=== PATIENT | female | born 1940 | race Caucasian/White ===

== ENCOUNTER 2018-11-11 10:34 | Outpatient (CLI) | payer MEDICARE, OTHER, SELFPAY ==
[2018-11-11 11:28] LABS: HCT 45.2 % (36.0-46.0); HGB 15.3 g/dL (12.0-15.5); Mean Corp. HGB Concentration 33.8 g/dL (32.0-36.0); Mean Corpuscular Volume 97.4 fL (80-95); Mean Platelet Volume 9.3 fL (8.0-11.0); Platelet Count 224 x1000/uL (130-400); RBC 4.64 m/cumm (4.00-5.20); RBC Distribution Width 12.5 % (11.7-14.6); White Blood Cell Count 6.26 k/cumm (4.4-10.8)
[2018-11-11 11:36] LABS: ALT 37 U/L (12-78); AST 20 U/L (15-37); Albumin 4.3 g/dL (3.4-5.0); Alkaline Phosphatase 74 U/L (46-116); Anion Gap 12.8 mmol/L (3-11); BUN 20 mg/dL (7-18); Bilirubin, Total 0.5 mg/dL (0.2-1.0); CO2 24.2 mmol/L (21.0-32.0); CREATININE 0.71 mg/dL (0.55-1.02); Calcium 9.2 mg/dL (8.5-10.1); Chloride 103 mmol/L (98-107); Glucose 97 mg/dL (70-100); Potassium 4.3 mmol/L (3.5-5.1); Sodium 140 mmol/L (136-145); Total Protein 7.2 g/dL (6.4-8.2)
== END 2018-11-11 10:54 ==
PROVIDERS: PCP Family Medicine; Visit Provider Family Medicine
DX: Z01.818 Encounter for other preprocedural examination (principal); R05 Cough
CPT/HCPCS: 36415; 80053; 85027

== ENCOUNTER 2019-03-19 00:53 | Outpatient (CLI) | payer MEDICARE, OTHER, SELFPAY ==
--- NOTE | 2019-03-19 07:43 | DI.MRI_ITS ---
SYMPTOMS/DIAGNOSIS: LOW BACK PAIN, M54.5 LUMBAR SPINE MRI: Sagittal T 2 and T 1 and STIR and axial T 1 and T 2 and axial T 2 MSMA and coronal T 1 pulse sequences were performed. Increased signal is noted in the first through fourth vertebral bodies and is associated with severe degenerative disc disease. At L 1 - 2 disc osteophyte prominence is demonstrated. There is prominent facet joint DJD and narrowing of the central neural canal. Also there is bilateral foraminal narrowing. At L 2 - 3 again noted is disc osteophyte complex prominence. Again noted is severe facet joint DJD with narrowing of the central spinal canal and bilateral foraminal narrowing. At L 3 - 4 disc osteophyte complex prominence is identified. There is severe facet joint DJD and evidence of bilateral foraminal stenosis most severe on the right side. At L 4 - 5 there is disc osteophyte prominence and a small subligamentous disc protrusion is demonstrated. There is severe facet joint DJD with resultant bilateral foraminal stenosis most advanced on the right side. At L 5 - S 1 and small subligamentous disc protrusion is identified. There is severe facet joint DJD with narrowing of the spinal canal and bilateral foraminal stenosis most advanced on the left side. There is no intrinsic abnormality involving the lower dorsal cord, conus or filum terminale. There is no evidence of a fracture. Note is made of disc narrowing at L 1 - 2, L 2 - 3 and L 3 - 4. There diminished disc signal and degenerative bony changes as noted above. There is multi-level spinal stenosis. Please see the above discussion.
== END 2019-03-19 01:13 ==
PROVIDERS: PCP Family Medicine; Visit Provider Family Medicine
DX: M54.5 Low back pain (principal); M51.36 Other intervertebral disc degeneration, lumbar region; M47.816 Spondylosis without myelopathy or radiculopathy, lumbar region; M48.061 Spinal stenosis, lumbar region without neurogenic claudication
CPT/HCPCS: 72148

== ENCOUNTER 2019-06-17 11:30 | Outpatient (CLI) | payer MEDICARE, OTHER, SELFPAY ==
--- NOTE | 2019-06-17 07:20 | DI.RAD_ITS ---
EXAM: XR PAIN CLINIC LUMBAR SP 2V CLINICAL HISTORY: Lumbar Epidural Steroid Injection TECHNIQUE: Realtime digital imaging was performed. CONTRAST MATERIAL: Water soluble contrast was administered. COMPARISON: No exams were available for comparison FINDINGS: Fluoroscopy was utilized by Dr. Jose during the performance of a lumbar epidural steroid injection. Please refer to the procedure report for complete details. Fluoro time: 19.1 sec
[2019-06-17 11:50] VITALS: BP 166/83; PULSE 61; RESP 18; TEMP 37.4; O2SAT 98
[2019-06-17] MEDS: Omnipaque 240 MG/ML 50 ML BTL IJ (12:17)
--- NOTE | 2019-06-17 12:18 | PDOC.PAIN ---
Pain Clinic Procedure Note Procedure Note Procedure Note: Lumbar Epidural Steroid Injection Procedure Note COMMENTS: She was seen in our clinic on 04/30/2019. I did review those notes and her most recent lumbar spine MRI. DX: Lumbosacral Radiculitis ADELA HURTADO has been referred to the [facility] for lumbar epidural steroid injection. The patient was greeted by the nurse who verified patients name and . Patient was then taken to the fluoroscopy suite. The patient was interviewed and the medial record reviewed. There were no medical, pharmacologic, radiographic, or other structural contraindications to attempting fluoroscopically guided lumbar epidural steroid injection. Risks and expected side effects as well as potential benefits of the procedure were reviewed and voiced concerns expressed. The patient consent form was signed and witnessed. Standard patient time-out procedure was performed. The patient was placed in the prone position on the fluoroscopy table and automated blood pressure cuff and pulse oximeter applied. The skin entry point for entering/approaching the epidural space at L5-S1 and marked. Following thorough chlorhexadine preparation of the skin and draping and 1% lidocaine infiltration of the skin entry point and subcutaneous tissues, a 18 gauge Touhy needle was placed under fluoroscopic guidance and with loss of resistance technique into the epidural space. Needle tip placement and depth were aided and confirmed by fluoroscopy. There was no paresthesia or return of blood or CSF through the needle. 1 cc's of Omnipaque 240 was injected with clear epidural spread confirmed with fluoroscopy. 80mg depomedrol was injected and this was flushed with 1 cc of 1% Lidocaine. There was not any unusual discomfort expressed by ADELA HURTADO. Patient's vital signs were stable throughout the procedure and were as recorded in nursing records. Follow up plans and appointments were discussed with patient. Post procedure instruction was given as documented in nursing records and having met discharge criteria and was discharged from the [facility]. COMMENTS: If this procedure is helpful, it can be completed up to 3 times per 12 months.
[2019-06-17] MEDS: methylPREDNISolone ACETATE 40 MG/ML VIAL IJ (12:21)
[2019-06-17 12:24] VITALS: BP 174/78; PULSE 56; RESP 19; O2SAT 96
== END 2019-06-17 11:50 ==
PROVIDERS: PCP Family Medicine; Visit Provider Preventive Medicine Occupational Medicine
DX: M54.17 Radiculopathy, lumbosacral region (principal)
CPT/HCPCS: 62323; 72100; J1030; Q9967

== ENCOUNTER 2019-09-30 09:35 | Outpatient (CLI) | payer MEDICARE, OTHER, SELFPAY ==
--- NOTE | 2019-09-30 09:36 | PDOC.PAIN ---
Pain Clinic Procedure Note Procedure Note Procedure Note: Lumbar Epidural Steroid Injection Procedure Note Pre-operative diagnosis: lumbar radiculopathy Post-operative diagnosis: same as above COMMENTS: patient responded to prior lumbar epidural steroid injection which helped some with her buttock pain. Her predominant symptoms involve bilateral buttock pain that occurs with prolonged standing or walking. She denies pain further down her buttock. Sitting does not bother her. LETI HURTADO has been referred to the [facility] for lumbar epidural steroid injection. The patient was greeted by the nurse who verified patients name and . Patient was then taken to the fluoroscopy suite. The patient was interviewed and the medial record reviewed. There were no medical, pharmacologic, radiographic, or other structural contraindications to attempting fluoroscopically guided lumbar epidural steroid injection. Risks and expected side effects as well as potential benefits of the procedure were reviewed and voiced concerns expressed. The patient consent form was signed and witnessed. Standard patient time-out procedure was performed. The patient was placed in the prone position on the fluoroscopy table and automated blood pressure cuff and pulse oximeter applied. The skin entry point for entering/approaching the epidural space by a L5-S1 and marked. Following thorough chlorhexadine preparation of the skin and draping and 1% lidocaine infiltration of the skin entry point and subcutaneous tissues, a 18 gauge Touhy needle was placed under fluoroscopic guidance and with loss of resistance technique into the epidural space. Needle tip placement and depth were aided and confirmed by fluoroscopy. There was no paresthesia or return of blood or CSF through the needle. 1 cc's of Omnipaque 240 was injected with clear epidural spread confirmed with fluoroscopy. 80mg depomedrol was injected with 1cc of preseravtive free 1% lidocaine and 1cc of preservative free normal saline. There was not any unusual discomfort expressed by LETI HURTADO. injection reproduced some of her usual buttock pain. Patient's vital signs were stable throughout the procedure and were as recorded in nursing records. Follow up plans and appointments were discussed with patient. Post procedure instruction was given as documented in nursing records and having met discharge criteria and was discharged from the [facility]. COMMENTS: If this procedure is helpful, it can be completed up to 3 times per 12 months. I discussed with Leti that if this injection fails to provide significant pain relief to her buttock pain, then she should schedule a follow up visit with Ms Aremburg to discuss if there are other pain generators. She voiced understanding. Reggie Yung MD Pain Management
[2019-09-30 09:43] VITALS: BP 143/77; PULSE 63; RESP 17; TEMP 36.9; O2SAT 94
[2019-09-30] MEDS: methylPREDNISolone ACETATE 80 MG/ML VIAL IJ (10:20)
[2019-09-30 10:21] VITALS: BP 149/91; PULSE 60; RESP 18; O2SAT 95
[2019-09-30] MEDS: Omnipaque 240 MG/ML 50 ML BTL IJ (10:21)
--- NOTE | 2019-09-30 11:07 | DI.RAD_ITS ---
EXAM: XR PAIN CLINIC LUMBAR SP 2V CLINICAL HISTORY: Dx: lumbar radiculopathy, LUMBAR EPIDURAL STEROID INJECTION TECHNIQUE: Fluoroscopy was provided for the referring physician for guidance with performing injecti on procedure. COMPARISON: No exams were available for comparison FINDINGS: Please see procedure note for details. Fluoro time: 16.3 seconds
== END 2019-09-30 09:55 ==
PROVIDERS: PCP Family Medicine; Visit Provider Internal Medicine
DX: M54.16 Radiculopathy, lumbar region (principal)
CPT/HCPCS: 62323; 72100; J1040; Q9967

== ENCOUNTER 2019-10-01 02:25 | Outpatient (CLI) | payer MEDICARE, OTHER, SELFPAY ==
[2019-10-01 09:20] LABS: HCT 43.3 % (36.0-46.0); Mean Corp. HGB Concentration 34.6 g/dL (32.0-36.0); Mean Corpuscular Hemoglobin 33.5 pg (27.0-33.0); Mean Corpuscular Volume 96.7 fL (80-95); Mean Platelet Volume 8.9 fL (8.0-11.0); Platelet Count 262 x1000/uL (130-400); RBC 4.48 m/cumm (4.00-5.20); RBC Distribution Width 11.8 % (11.7-14.6); White Blood Cell Count 7.19 k/cumm (4.4-10.8)
[2019-10-01 10:16] LABS: ALT 40 U/L (14-59); AST 22 U/L (15-37); Albumin 4.3 g/dL (3.4-5.0); Alkaline Phosphatase 67 U/L (46-116); Anion Gap 12.7 mmol/L (3-11); BUN 20 mg/dL (7-18); Bilirubin, Total 0.6 mg/dL (0.2-1.0); CO2 24.3 mmol/L (21.0-32.0); CREATININE 0.65 mg/dL (0.55-1.02); Calcium 9.4 mg/dL (8.5-10.1); Calculated LDL 142 mg/dL (<100); Chloride 105 mmol/L (98-107); Cholesterol 232 mg/dL (<200); Glucose 99 mg/dL (74-106); HDL Cholesterol 79 mg/dL (40-60); Sodium 142 mmol/L (136-145); Total Protein 7.1 g/dL (6.4-8.2); Triglyceride 56 mg/dL (<150)
== END 2019-10-01 02:45 ==
PROVIDERS: PCP Family Medicine; Visit Provider Family Medicine
DX: I10 Essential (primary) hypertension (principal)
CPT/HCPCS: 36415; 80053; 80061; 85027

== ENCOUNTER 2019-12-31 08:50 | Outpatient (CLI) | payer MEDICARE, OTHER, SELFPAY | END 2019-12-31 09:10 | PROVIDERS: PCP Family Medicine; Visit Provider Family Medicine | DX: R42 Dizziness and giddiness (principal); I10 Essential (primary) hypertension | CPT/HCPCS: 93225 ==

== ENCOUNTER 2020-01-02 13:50 | Outpatient (CLI) | payer MEDICARE, OTHER, SELFPAY ==
--- NOTE | 2020-01-05 08:50 | W.HOLTRPT ---
Date of service: 01/05/20 Time of Service: 08:50 Holter Monitor Report Holter Monitor Note: There is a 48-hour Holter monitor ordered for the indication of dizziness. ?Patient was in normal sinus rhythm for the majority of the recording. ?There were 8 episodes of supraventricular tachycardia with the longest lasting 16 beats. There were occasional (1.3%) premature atrial contractions. ?There were 0 episodes of ventricular tachycardia and rare premature ventricular contractions. ?There were no episodes of atrial fibrillation no pauses greater than 3 seconds and no evidence of high degree heart block. ?Patient diary events were associated with normal sinus rhythm and possibly SVT (timestamp appears to be inaccurate)
== END 2020-01-02 14:10 ==
PROVIDERS: PCP Family Medicine; Visit Provider Family Medicine
DX: R42 Dizziness and giddiness (principal); Z86.79 Personal history of other diseases of the circulatory system
CPT/HCPCS: 93226

== ENCOUNTER 2020-01-05 08:50 | Outpatient (CLI) | payer MEDICARE, OTHER, SELFPAY | END 2020-01-05 09:10 | PROVIDERS: PCP Family Medicine; Referring Provider Family Medicine; Visit Provider Internal Medicine Cardiovascular Disease | DX: I47.1 Supraventricular tachycardia (principal); I49.1 Atrial premature depolarization | CPT/HCPCS: 93227 ==

== ENCOUNTER 2020-02-24 07:31 | Outpatient (CLI) | payer MEDICARE, OTHER, SELFPAY ==
[2020-02-24 07:58] VITALS: BP 132/69; PULSE 56; RESP 17; TEMP 36.8; O2SAT 97
--- NOTE | 2020-02-24 08:01 | PDOC.PAIN ---
Pain Clinic Procedure Note Procedure Note Procedure Note: Lumbar Epidural Steroid Injection Procedure Note Pre-operative diagnosis: lumbar radiculopathy Post-operative diagnosis: same as above COMMENTS: patient has predominantly back and bilateral buttock pain. She received LESI on 07/[address] Jose and then repeat L5-S1 LESI on 09/2019 by me, both injections have provided excellent pain relief for 3-4 months. She is here for a repeat injection. Pain pattern has not changed. ADELA HURTADO has been referred to the [facility] for lumbar epidural steroid injection. The patient was greeted by the nurse who verified patients name and . Patient was then taken to the fluoroscopy suite. The patient was interviewed and the medial record reviewed. There were no medical, pharmacologic, radiographic, or other structural contraindications to attempting fluoroscopically guided lumbar epidural steroid injection. Risks and expected side effects as well as potential benefits of the procedure were reviewed and voiced concerns expressed. The patient consent form was signed and witnessed. Standard patient time-out procedure was performed. The patient was placed in the prone position on the fluoroscopy table and automated blood pressure cuff and pulse oximeter applied. The skin entry point for entering/approaching the epidural space by a L5-S1 and marked. Following thorough chlorhexadine preparation of the skin and draping and 1% lidocaine infiltration of the skin entry point and subcutaneous tissues, a 18 gauge Touhy needle was placed under fluoroscopic guidance and with loss of resistance technique into the epidural space. Needle tip placement and depth were aided and confirmed by fluoroscopy. There was no paresthesia or return of blood or CSF through the needle. 1 cc's of Omnipaque 240 was injected with clear epidural spread confirmed with fluoroscopy. 80mg depomedrol was injected. This is followed by 0.5cc of preservative free 1% lidocaine and 0.5cc of preservative free normal saline. There was not any unusual discomfort expressed by ADELA HURTADO. Patient's vital signs were stable throughout the procedure and were as recorded in nursing records. Follow up plans and appointments were discussed with patient. Post procedure instruction was given as documented in nursing records and having met discharge criteria and was discharged from the [facility]. COMMENTS: If this procedure is helpful, it can be completed up to 3 times per 12 months. I personally performed the entire procedure. Reggie Yung MD Pain Management
--- NOTE | 2020-02-24 08:26 | DI.RAD_ITS ---
EXAM: XR PAIN CLINIC LUMBAR SP 2V CLINICAL HISTORY: Dx: Lumbar Radiculopathy. TECHNIQUE: Fluoroscopy was provided for the referring physician for guidance with performing injecti on procedure. COMPARISON: No exams were available for comparison FINDINGS: Please see procedure note for details. Fluoro Time: 12.9 sec RADIATION DOSE DELIVERED:
[2020-02-24 08:29] VITALS: BP 185/74; PULSE 56; RESP 17; O2SAT 98
[2020-02-24] MEDS: Omnipaque 240 MG/ML 50 ML BTL IJ (08:29)
[2020-02-24] MEDS: methylPREDNISolone ACETATE 80 MG/ML VIAL IJ (08:29)
== END 2020-02-24 07:51 ==
PROVIDERS: PCP Family Medicine; Visit Provider Internal Medicine
DX: M54.16 Radiculopathy, lumbar region (principal)
CPT/HCPCS: 62323; 72100; J1040; Q9967

== ENCOUNTER 2020-07-20 09:55 | Outpatient (CLI) | payer MEDICARE, OTHER, SELFPAY ==
[2020-07-20 10:05] VITALS: BP 134/86; PULSE 64; RESP 17; TEMP 36.9; O2SAT 96
[2020-07-20] MEDS: methylPREDNISolone ACETATE 80 MG/ML VIAL IJ (11:13)
[2020-07-20] MEDS: Omnipaque 240 MG/ML 50 ML BTL IJ (11:14)
--- NOTE | 2020-07-20 11:15 | DI.RAD_ITS ---
EXAM: XR PAIN CLINIC LUMBAR SP 2V CLINICAL HISTORY: Dx: Lumbar Radiculopathy TECHNIQUE: 2D and realtime digital imaging was performed. COMPARISON: No exams were available for comparison FINDINGS: C-arm fluoroscopy is utilized by Dr. Yung during apparent epidural steroid injection. Hard copy shows needle placement at the L5-S1 level. Fluoro time, 15.5 seconds. IMPRESSION: RADIATION DOSE DELIVERED: Total DLP
[2020-07-20 11:17] VITALS: BP 151/73; PULSE 57; RESP 21; O2SAT 97
--- NOTE | 2020-07-20 11:43 | PDOC.PAIN_ITS ---
Pain Clinic Procedure Note Procedure Note Procedure Note: Lumbar Epidural Steroid Injection Procedure Note Pre-operative diagnosis: lumbar radiculopathy Post-operative diagnosis: same as above COMMENTS: patient has predominantly back and bilateral buttock pain. Previous LESI provides sustained pain relief lasting 3-4 months ADELA HURTADO has been referred to the [facility] for lumbar epidural steroid injection. The patient was greeted by the nurse who verified patients name and . Patient was then taken to the fluoroscopy suite. The patient was interviewed and the medial record reviewed. There were no medical, pharmacologic, radiographic, or other structural contraindications to attempting fluoroscopically guided lumbar epidural steroid injection. Risks and expected side effects as well as potential benefits of the procedure were reviewed and voiced concerns expressed. The patient consent form was signed and witnessed. Standard patient time-out procedure was performed. The patient was placed in the prone position on the fluoroscopy table and a utomated blood pressure cuff and pulse oximeter applied. The skin entry point for entering/approaching the epidural space by a L5-S1 and marked. Following thorough chlorhexadine preparation of the skin and draping and 1% lidocaine infiltration of the skin entry point and subcutaneous tissues, a 18 gauge Touhy needle was placed under fluoroscopic guidance and with loss of resistance technique into the epidural space. Needle tip placement and depth were aided and confirmed by fluoroscopy. There was no paresthesia or return of blood or CSF through the needle. 1 cc's of Omnipaque 240 was injected with clear epidural spread confirmed with fluoroscopy. 80mg depomedrol was injected. This is followed by 0.5cc of preservative free 1% lidocaine and 0.5cc of preservative free normal saline. There was not any unusual discomfort expressed by ADELA HURTADO. Patient's vital signs were stable throughout the procedure and were as recorded in nursing records. Follow up plans and appointments were discussed with patient. Post procedure instruction was given as documented in nursing records and having met discharge criteria and was discharged from the [facility]. COMMENTS: If this procedure is helpful, it can be completed up to 3 times per 12 months. I personally performed the entire procedure. Reggie Yung MD Pain Management
== END 2020-07-20 10:15 ==
PROVIDERS: PCP Family Medicine; Visit Provider Internal Medicine
DX: M54.16 Radiculopathy, lumbar region (principal)
CPT/HCPCS: 62323; 72100; J1040; Q9967

== ENCOUNTER 2020-10-08 02:37 | Outpatient (CLI) | payer MEDICARE, OTHER, SELFPAY ==
[2020-10-08 09:00] LABS: Abs Immature Grans 0.03 10^3/uL (0.0-0.06); Absolute Basophil Count 0.06 10^3/uL (0.0-0.2); Absolute Eosinophil Count 0.23 10^3/uL (0.0-0.7); Absolute Lymphocyte Count 2.19 10^3/uL (1.2-3.4); Absolute Monocyte Count 0.47 10^3/uL (0.1-0.8); Absolute Neutrophil Count 2.32 10^3/uL (1.2-6.7); Basophils % 1.1; Eosinophils % 4.3; HCT 42.3 % (36.0-46.0); HGB 14.4 g/dL (11.2-15.7); Immature Grans % 0.6; Lymphocytes % 41.3; MCH 33.3 pg (27.0-33.0); MCV 97.9 fL (80-95); MPV 8.9 fL (8.0-11.0); Monocytes % 8.9; Neutrophils % 43.8; Nucleated RBC 0 %; Platelet Count 216 10^3/uL (130-400); RBC 4.32 10^6/uL (3.93-5.22); RDW 12.2 % (11.7-14.6); RDW-SD 44.5 fL
[2020-10-08 10:16] LABS: ALT 53 U/L (14-59); AST 25 U/L (15-37); Albumin 4.1 g/dL (3.4-5.0); Alkaline Phosphatase 65 U/L (46-116); Anion Gap 10.9 mmol/L (3-11); BUN 19 mg/dL (7-18); Bilirubin, Total 0.6 mg/dL (0.2-1.0); CO2 27.1 mmol/L (21.0-32.0); CREATININE 0.7 mg/dL (0.55-1.02); Calcium 9.5 mg/dL (8.5-10.1); Calculated LDL 113 mg/dL (<100); Chloride 106 mmol/L (98-107); Cholesterol 220 mg/dL (<200); Glucose 97 mg/dL (74-106); HDL Cholesterol 79 mg/dL (40-60); Sodium 144 mmol/L (136-145); TSH (W/Ref FT4) 1.86 uIU/mL (0.36-3.74); Total Protein 6.7 g/dL (6.4-8.2); Triglyceride 141 mg/dL (<150); Vitamin B12 686 pg/mL (193-986)
== END 2020-10-08 02:38 | disposition home or self-care (01) ==
PROVIDERS: PCP Family Medicine; Visit Provider Physician Assistant
DX: I10 Essential (primary) hypertension (principal); E78.5 Hyperlipidemia, unspecified; R53.83 Other fatigue; R06.89 Other abnormalities of breathing; R09.89 Other specified symptoms and signs involving the circulatory and respiratory systems; Z79.899 Other long term (current) drug therapy
CPT/HCPCS: 36415; 80053; 80061; 82607; 84443; 85025

== ENCOUNTER 2020-11-08 02:31 | Outpatient (CLI) | payer MEDICARE, OTHER, SELFPAY ==
--- NOTE | 2020-11-08 06:45 | DI.RAD_ITS ---
EXAM: XR HIP LT COMPLETE AP PELVIS CLINICAL HISTORY: Left hip pain, ? arthritis,M25.552. TECHNIQUE: 2D digital imaging was performed. COMPARISON: No exams were available for comparison FINDINGS: No evidence of pelvic nor hip fracture. Lateral view of the left hip does not reveal significant julian nt space narrowing. Small calcification above the greater trochanter opposite-right hip does not hav e an acute appearance. Sacroiliac joints unremarkable. Degenerative disc disease in the lumbar spin e noted Bone density is age-appropriate. No osseous lesions. IMPRESSION: No significant radiograph findings in the pelvis and hips. DATA REPOSITORY: RADIATION DOSE DELIVERED:
== END 2020-11-08 02:51 ==
PROVIDERS: PCP Family Medicine; Visit Provider Nurse Practitioner Family
DX: M25.552 Pain in left hip (principal)
CPT/HCPCS: 73502

== ENCOUNTER 2020-12-21 13:49 | Outpatient (REF) | payer MEDICARE, OTHER, SELFPAY ==
[2020-12-21 17:36] LABS: C Diff PCR Negative (Negative)
[2020-12-22 11:57] LABS: Campylobacter PCR Negative (Negative); Salmonella PCR Negative (Negative); Shiga Toxin PCR Negative (Negative); Shigella/Enteroinvasive Ecoli Negative (Negative)
== END 2020-12-21 13:50 | disposition home or self-care (01) ==
LOC: NCHCN 13:49
PROVIDERS: PCP Family Medicine; Visit Provider Family Medicine
DX: R19.7 Diarrhea, unspecified (principal)
CPT/HCPCS: 87329; 87493; 87505; 83630; 87177

== ENCOUNTER 2020-12-23 14:04 | Outpatient (REF) | payer MEDICARE, OTHER, SELFPAY ==
[2020-12-23 15:41] LABS: Abs Immature Grans 0.02 10^3/uL (0.0-0.06); Absolute Basophil Count 0.02 10^3/uL (0.0-0.2); Absolute Eosinophil Count 0.03 10^3/uL (0.0-0.7); Absolute Lymphocyte Count 1.79 10^3/uL (1.2-3.4); Absolute Monocyte Count 0.59 10^3/uL (0.1-0.8); Absolute Neutrophil Count 3.41 10^3/uL (1.2-6.7); Basophils % 0.3; Eosinophils % 0.5; HCT 41.7 % (36.0-46.0); HGB 14.7 g/dL (11.2-15.7); Immature Grans % 0.3; Lymphocytes % 30.5; MCH 33.2 pg (27.0-33.0); MCHC 35.3 % (32.0-36.0); MCV 94.1 fL (80-95); MPV 9.1 fL (8.0-11.0); Monocytes % 10.1; Neutrophils % 58.3; Nucleated RBC 0 %; Platelet Count 245 10^3/uL (130-400); RBC 4.43 10^6/uL (3.93-5.22); RDW 11.9 % (11.7-14.6); RDW-SD 41.1 fL; WBC 5.86 10^3/uL (4.4-10.8)
[2020-12-23 15:55] LABS: ALT 78 U/L (14-59); AST 39 U/L (15-37); Albumin 4.1 g/dL (3.4-5.0); Alkaline Phosphatase 57 U/L (46-116); Anion Gap 10.7 mmol/L (3-11); BUN 15 mg/dL (7-18); Bilirubin, Total 0.7 mg/dL (0.2-1.0); CO2 25.3 mmol/L (21.0-32.0); CREATININE 0.8 mg/dL (0.55-1.02); Calcium 9.3 mg/dL (8.5-10.1); Chloride 106 mmol/L (98-107); Glucose 99 mg/dL (74-106); Potassium 3.6 mmol/L (3.5-5.1); Sodium 142 mmol/L (136-145); Total Protein 6.8 g/dL (6.4-8.2)
== END 2020-12-23 14:05 | disposition home or self-care (01) ==
LOC: LBN 14:04
PROVIDERS: PCP Family Medicine; Visit Provider Physician Assistant Medical
DX: R19.7 Diarrhea, unspecified (principal)
CPT/HCPCS: 80053; 85025

== ENCOUNTER 2020-12-30 01:23 | Outpatient (CLI) | payer MEDICARE, OTHER, SELFPAY ==
--- NOTE | 2020-12-30 12:04 | DI.RAD_ITS ---
Exam(s) XR LUMBAR SPINE COMPLETE EXAM: XR LUMBAR SPINE COMPLETE CLINICAL HISTORY: LOW BACK PAIN, M54.5. TECHNIQUE: 2D digital imaging was performed. FINDINGS: There is no evidence of lumbar vertebral fracture or listhesis. No pars defects. There is a mild de generative scoliosis convex left which is related to asymmetric disc space narrowing on the right katey e at L2-3 and L3-4 levels. L4-5 disc space exhibits vacuum phenomenon but preserved disc height. L5-S1 also exhibits only mild disc space narrowing. L1-2 level exhibits advanced disc space narrowing. T12-L1 exhibits relatively preserved disc height. There are degenerative changes in the facet joints (mild-moderate). IMPRESSION: Multilevel chronic degenerative disc disease as described above. Please note that MRI scan performed 03/19/2019 revealed multilevel spinal canal stenosis. Please see that prior report DATA REPOSITORY: RADIATION DOSE DELIVERED:
--- NOTE | 2020-12-30 12:04 | DI.MAMMO_ITS ---
Exam(s) MAMMO SCREENING EXAM: MAMMO SCREENING CLINICAL HISTORY: screening,Z12.39. TECHNIQUE: Bilateral full field digital CC and MLO mammographic images were obtained with 3D tomosyn thesis and utilizing computer aided detection (CAD). COMPARISON: Prior mammograms dating back to 2010, the most recent being September 2017. FINDINGS: There are no new significant radiograph findings in the right breast. In the left breast there is an area of asymmetric density now evident in the upper outer quadrant loc ated 10 cm in from the nipple and measuring approximately 1.5 x 1.2 cm. Spot compression views and p ossible ultrasound recommended there are no malignant-appearing microcalcification groups in this reg ion or elsewhere in either breast. There is no significant architectural distortion nor skin thickening-retraction. IMPRESSION: 1. No radiographic evidence of malignancy in the right breast. 2. New asymmetric density in the left breast as described above. Spot compression 3D views recommend ed in both CC and MLO planes. Also left breast ultrasound. BI-RADS Category 0 - Assessment Incomplete: Need additional imaging evaluation Breast Density - Category B - Scattered areas of fibroglandular density Breast density Category C or D implies that the patient has dense breast tissue. Dense breast tissue can make it harder to find cancer on a mammogram. Dense breast tissue is also associated with an incr eased risk of breast cancer. This information about the result of the mammogram report was provided to the patient to raise their awareness. Use this report when you speak with the patient about their risks for breast cancer, which includes their family history. At that time, you may recommend additional screening tests (Ultrasoun d or MRI) as these tests may add significant information. A negative radiographic report should not delay biopsy if a dominant or clinically suspicious mass is present. Up to ten percent of cancers are not identified on mammography. A negative report may reinforce clinical impression. Adenosis and dense breasts may obscure an underlying neoplasm. False positive reports average 6 to 10%. Patient will receive a letter notifying them of these results.
== END 2020-12-30 01:43 ==
PROVIDERS: PCP Family Medicine; Visit Provider Physician Assistant
DX: Z12.31 Encounter for screening mammogram for malignant neoplasm of breast (principal); R92.8 Other abnormal and inconclusive findings on diagnostic imaging of breast; M54.5 Low back pain; M51.37 Other intervertebral disc degeneration, lumbosacral region; M48.07 Spinal stenosis, lumbosacral region
CPT/HCPCS: 77063; 77067; 72110

== ENCOUNTER → 2021-01-06 11:24 | Outpatient (BNVA) | payer MEDICARE, OTHER, SELFPAY | PROVIDERS: PCP Family Medicine; Referring Provider Family Medicine; Visit Provider Physical Therapy Assistant | DX: K59.1 Functional diarrhea (principal); I10 Essential (primary) hypertension; Z80.0 Family history of malignant neoplasm of digestive organs; F12.20 Cannabis dependence, uncomplicated | CPT/HCPCS: 99213 ==

== ENCOUNTER 2021-01-11 02:21 | Outpatient (CLI) | payer MEDICARE, OTHER, SELFPAY ==
--- NOTE | 2021-01-11 | DI.US_ITS ---
Exam(s) MG MAMMO SCREEN CALL BACK UNI US BREAST LT LIMITED EXAM: MAMMO SCREEN CALL BACK UNI CLINICAL HISTORY: F/U MAMMO, ASYMMETRIC DENSITY UOQ TECHNIQUE: Spot compression digital CC and MLO mammographic images were obtained with 3D tomosynthes is and utilizing computer aided detection (CAD). COMPARISON: 2010 through 2017 FINDINGS: Additional views of the Left breast: Masses/Architectural Distortion: There is a persistent area of increased density with architectural d istortion seen in the upper outer quadrant of the left breast. Findings are new when compared with t he previous exam. Microcalcifications: No suspicious pleomorphic-type are seen. Skin Thickening/Nipple Retraction: None. Left breast ultrasound: Left breast ultrasound shows an area of shadowing in the upper outer quadrant of the left breast, in the 2 o'clock position, 6 centimeters 4 from the nipple. It measures 1.7 x 0 .9 x 1.3 cm. IMPRESSION: 1. 1.7 centimeter mass in the upper outer quadrant of the left breast is suspicious for malignancy. Biopsy is recommended. BI-RADS Category 4 - Suspicious Abnormality: Biopsy should be considered Breast Density - Category B - Scattered areas of fibroglandular density A negative radiographic report should not delay biopsy if a dominant or clinically suspicious mass is present. Up to ten percent of cancers are not identified on mammography. A negative report may reinforce clinical impression. Adenosis and dense breasts may obscure an underlying neoplasm. False positive reports average 6 to 10%. Patient will receive a letter notifying them of these results.
== END 2021-01-11 02:41 ==
PROVIDERS: PCP Nurse Practitioner Family; Visit Provider Physician Assistant
DX: Z12.31 Encounter for screening mammogram for malignant neoplasm of breast (principal); R92.8 Other abnormal and inconclusive findings on diagnostic imaging of breast; N63.21 Unspecified lump in the left breast, upper outer quadrant
CPT/HCPCS: 76642; 77063; 77067

== ENCOUNTER 2021-01-18 01:42 | Outpatient (CLI) | payer MEDICARE, OTHER, SELFPAY ==
--- NOTE | 2021-01-18 | DI.US_ITS ---
Exam(s) US NEEDLE LOCAL BREAST WO RAD EXAM: US NEEDLE LOCAL BREAST WO RAD CLINICAL HISTORY: LT BREAST MASS, ULTRASOUND GUIDED CORE BX TECHNIQUE: Ultrasound performed using standard protocol. COMPARISON: US US BREAST LT LIMITED from 01/11/2021 FINDINGS: Ultrasound guidance was provided for breast biopsy performed by Dr. Crum. Please see Dr. Crum procedure note. IMPRESSION: DATA REPOSITORY:
--- NOTE | 2021-01-18 14:10 | BREAST_PTH ---
PATIENT: Leti [place] LOC: [facility] U#:[id number] AGE/SX: 80/F ROOM: RE01/18/[address]: Lexi Crum MD : [id number] BED: DIS: 01/18/2021 SPEC #: [id number] RECD: 01/18/21 16:24 STATUS: JESSICA PARKER #: [id number] SONYA: 01/18/21 14:[address]: Lexi Crum DEPT: Surgical Specimen RECD BY: Leyla Alston ENTERED: 01/18/21 16:25 SP TYPE: Breast OTHR DR: SARAH Kaminski Tissues: 1 - BREAST BX NEEDLE Procedures: GROSS AND MICRO LEVEL 4 Her-2 Dual SHIKHA ESTROGEN/PROGESTERONE RECEPTOR IPEX STAIN Comments: [id number]
--- NOTE | 2021-01-18 17:09 | W.PROCNOTE ---
Date of service: 01/18/21 Time of Service: 14:00 Procedure Note Date of procedure: 01/18/21 Procedure: US guided Core needle biopsy left Breast Surgeon/Proceduralist/Physician: Lexi Crum Procedure Description: Pre-op Dx: left Breast Mass Post-op Dx: same Procedure: US guided Core needle biopsy Surgeon: Summer Crum MD Anesthesia: Local anesthesia with 1% Lidocaine Blood loss: 2 cc Specimen: Core needle biopsy Complications: no immediate complications Procedure: After informed consent was obtained the patient was placed in a supine position. Us was done of the left Breast and the lesion was localized by the US tech. The skin was cleaned with alcohol and infiltrated with the above local anesthetic. The skin was then prepped. An incision was made with an 11 blade. Using a 14 gauge core needle 2 specimens were removed and placed on telfa and placed in formalin. A small titanium clip was then placed into the Lesion under US guidence. The skin was cleaned and dried and a band aid was applied. The patient tolerated the procedure well and there were no immediate complications.
== END 2021-01-18 02:02 ==
PROVIDERS: PCP Nurse Practitioner Family; Visit Provider Surgery
DX: C50.412 Malignant neoplasm of upper-outer quadrant of left female breast (principal); Z17.0 Estrogen receptor positive status [ER+]
CPT/HCPCS: 19083; 88305; 76942; 88360; 88368

== ENCOUNTER → 2021-02-10 09:21 | Outpatient (BNVA) | payer MEDICARE, OTHER, SELFPAY | PROVIDERS: PCP Nurse Practitioner Family; Referring Provider Nurse Practitioner Family; Visit Provider Surgery | DX: C50.912 Malignant neoplasm of unspecified site of left female breast (principal) | CPT/HCPCS: 99213; 99214 ==

== ENCOUNTER 2021-02-18 01:41 | Outpatient (CLI) | payer MEDICARE, OTHER, SELFPAY ==
[2021-02-18 10:04] LABS: Source Nasal/Nares
[2021-02-18 15:53] LABS: COVID-19 PCR Negative (Negative)
== END 2021-02-18 01:42 | disposition home or self-care (01) ==
LOC: LBO 01:41
PROVIDERS: PCP Nurse Practitioner Family; Visit Provider Surgery
DX: Z20.822 Contact with and (suspected) exposure to COVID-19 (principal); Z01.818 Encounter for other preprocedural examination
CPT/HCPCS: 87635

== ENCOUNTER 2021-02-23 06:40 | Day surgery (SDC) | payer MEDICARE, OTHER, SELFPAY ==
[2021-02-23] VITALS (7 sets, daily range): BP systolic 123–163; BP diastolic 63–80; PULSE 41–59; RESP 10–16; TEMP 36–36.6; O2SAT 96–99; BMI 29.2
--- NOTE | 2021-02-23 | DI.US_ITS ---
Exam(s) US NEEDLE LOCAL BREAST WO RAD EXAM: LT LOBULAR BREAST CA, ULTRASOUND GUIDED BIOPSY COMPARISON: US US NEEDLE LOCAL BREAST WO RAD from 01/18/2021 TECHNIQUE: Ultrasound performed using standard protocol. FINDINGS: Sonography was provided for Dr. Crum during the performance of a needle localization of a left br east mass. Please refer to the procedure report for complete details. DATA REPOSITORY:
--- NOTE | 2021-02-23 06:30 | DI.NM_ITS ---
Exam(s) NM SENTNODE INJ ONLY EXAM: NM SENTNODE INJ ONLY CLINICAL HISTORY: left lobular Breast cancer,C50.912. TECHNIQUE: Injected Dose: 1 mCi Tc-99m filtered sulfur colloid Images: No images were obtained. COMPARISON: No exams were available for comparison FINDINGS: 1 mCi of technetium 99 M sulfur colloid was injected into the left breast according to protocol by Dr Jory Crum of the department of surgery. No images were obtained. IMPRESSION: 1. [facility] node evaluation. Injection only. DATA REPOSITORY:
--- NOTE | 2021-02-23 06:36 | ROE_ITS ---
Date of service: 02/23/21 Time of Service: 10:57 Operative Note Operative Note DATE OF PROCEDURE: 02/23/21 PRE-OP DIAGNOSIS: Lobular adenocarcinoma of left Breast POST-OP DIAGNOSIS: same PROCEDURE: 1. US guided needle localization 2. Lumpectomy with sentinel lymph node biopsy SURGEON: Lexi Crum OYSTER GRADER: Brook Rivas ANESTHESIA TYPE: Local By Surgeon (Exparel 20 cc mixed 50/50 with 0.25% Bupivocaine), General LMA/ETT and Primary Nerve Block Refer to Anesthesia Record ESTIMATED BLOOD LOSS: 25 PATHOLOGY: other (Breast tissue, sentinel lymph node) COMPLICATIONS: None Patient was transported to: PACU Patient's condition: stable Indications: Leti is a pleasant 80-year-old female who unfortunately was diagnosed with lobular breast cancer of the left side. Her MRI showed no other suspicious lesions in the right breast or left breast and no suspicious lesions in the axilla's. We discussed an increased risk of contralateral recurrence of her breast cancer. We discussed lumpectomy with sentinel lymph node biopsy versus mastectomy and lymph node biopsy. I reviewed the sentinel biopsy procedure as well as the needle localization procedure. The patient would like to proceed with lumpectomy and sentinel lymph node biopsy. Because the patient has a clotting disorder I will have her continue her aspiri n. We will coordinate with radiology for needle placement in the OR and for sentinel lymph node injection 2 hours prior to her surgery. Findings: One sentinel lymph node Procedure Description: After informed consent was obtained from the patient and she was taken back to the operating room and placed in the supine position on the operating room table. The patient was then placed undergeneral with LMA. The Breast was cleaned with alcohol at the edge of the areaol and 3 cc of blue dye was injected and the area was massaged for 1 minute. The Breast was prepped with Chlorhexidine and with the assistance of the hobbing machine operator a 7.5 cm wire was placed into the right breast lesion making sure that the tip of the wire was passed the lesion itself. Next the left chest wall, axilla and arm were all prepped and draped in a sterile surgical fashion. At this point a timeout was done. The patient's name, date of , allergies to medications, procedure to be done, site of surgery and antibiotic prophylaxis were all reviewed. Fire risk was assessed. At this point Exparel and bupivacaine was injected into the dermis at the entrance of the wire. A 5 cm incision was made with a 15 blade. Dissection was done with cautery to the wire entrance into the lesion. The wire was grasped with a hemostat and pulled through the skin. Using cautery the tissue was dissected around the needle down past the tip of the needle. Once the breast tissue was completely dissected it was marked with a single suture at the medial border and a double suture anterior. The wire was superior. The specimen was then sent to radiology where a mammogram picture was taken. It showed the the previously placed clip in the lesion as well as the wire within the lesion. The specimen was brought back to the operating room and placed in formalin for pathology. The cavity was irrigated with some normal saline and dried. Small areas of bleeding were identified and these were stopped using cautery. The cavity was inspected again and no bleeding was noted. The wound was packed with moist raytechs. Next guiger counter was used and the axilla background count was 1045. The dermis was infiltrated with the local mixture. A 3 cm incision was made with a 15 blade. Dissection was done through the subcutaneous tissue down through the fascia. The guiger counter was used to pinpoint the sentinel lymph node. The node was removed and the count was 734. The lymph node was placed in formalin. The axilla was swept and the count was 50. No other enlarged lymphnodes or blue lymph nodes were noted. The wound was irrigated and there was no bleeding. The subcutaneous tissue was re-approximated with 3-0 vicryl. The dermis was re- approximated with 4-0 vicryl. The skin was cleaned and dried and skin affix was applied. The breast wound was inspected. No bleeding was noted. The wound was irrigated and the incision was then closed with 3-0 Vicryl interrupted subdermal sutures. The dermis was closed with a continuous 4-0 Vicryl suture. The skin was cleaned and dried and skin affix was applied. The patient was slowly woken up and taken back to [facility] in stable condition. Sponge, instruments and needles were correct at the end of the case x2. There were no immediate complications.
--- NOTE | 2021-02-23 06:40 | PDOC.DSDIS_ITS ---
Discharge Plan Disposition Patient Disposition: HOME Condition: Good Discharge Details Reason For Visit: Left Breast cancer Attending Provider: Lexi Crum Primary Care Provider: Ginger Meng Home Meds and New Rx's Prescriptions: Continued losartan 50 mg tablet 50 mg PO DAILY Qty: 90 RF: 3 valerian root 100 mg capsule 100 mg PO QHS PRNRF: 0 calcium-magnesium 750-465 mg tablet 1 tab PO DAILY RF: 0 diltiazem HCl 120 mg capsule,extended release 24hr 120 mg PO QAM Qty: 90 RF: 4 hydrochlorothiazide 12.5 mg tablet 12.5 mg PO QAM Qty: 90 RF: 4 multivitamin with iron 1 EACH tablet 1 ea PO DAILY RF: 0 aspirin 325 MG tablet 125 mg PO DAILY RF: 0 loperamide [Imodium A-D] 2 mg Capsule 2 mg PO Q4H PRNRF: 0 Discharge Instructions Instructions: Breast Lumpectomy (DC) Additional Instructions: Activity at Home after surgery: 1. Make sure you walk outside at least 4 times per day 2. You should be able to climb a flight of stairs 3. No driving while in pain or taking pain medications 4. No strenuous activity or heavy lifting for 2 weeks Diet, Nutrition, & wound healin. Avoid alcohol until after you are recovered from your surgery 2. Make sure to eat plenty of lean protein (meat, fish, eggs, cottage cheese, beans) 3. Eat a variety of fruits and vegetables. Eat plenty of high fiber foods to avoid constipation. 4. Drink plenty of liquids to stay hydrated and avoid constipation Pain Medications: 1. Tylenol 650mg every 6 hours as needed and Ibuprofen 600 mg every 6 hours as needed. You may alternate between the 2 medications every 3 hours 2. If a narcotic has been prescribed take as directed only for troy kthrough pain For Constipation: 1. Take Milk of Magnesia or MiraLax as needed for constipation Other: 1. You may shower daily. Do not scrub the incisions 2. Do not soak the incisions for 1 week 3. You may alternate ice and heat as needed for pain and swelling Wound Care: 1. Keep the incisions clean and dry Please call our office if you develop: 1. Fevers >101.5 2. Nausea or Vomiting 3. Worsening pain 4. Redness and thick discharge from the wounds If after hours please call the Hospital at and ask to speak to the on-call surgeon Referrals: Lexi Crum MD [ [facility] STAFF PHYSICIAN] - Activity:: see above Remove Dressings/Wound Care:: 24 hours Shower/Bathe:: 24 hours Diet:: As Tolerated Discharge Orders Discharge Orders: Discharge Order (Routine); Ordered 02/23/21 Ordered By: Lexi Crum
[2021-02-23] MEDS: Acetaminophen 500 MG TAB 1000 MG PO (07:10)
[2021-02-23] MEDS: Lactated Ringers 1,000 ML 80 ML IV (07:31)
--- NOTE | 2021-02-23 08:55 | W.ANESPRE ---
General Info Date of Service Date Performed: 02/23/21 Height: 5 ft 2 in Weight: 72.5 kg Body Mass Index (BMI): 29.2 Surgical Procedure: Operation Date: 02/23/21 09:25 Proposed Procedures Side Surgeon p NEEDLE LOCALIZED LT BREAST LUMPECTOMY Left Lexi Crum MD s Sentinal Node Biopsy LT AXILLA Left Lexi Crum MD Meds Allergies and Home Medications Allergies Allergy/AdvReac Type Severity Reaction Status Date / Time Penicillins Allergy Mild Skin Rash Verified 02/23/21 06:59 Home Medication Medication Instructions Recorded multivitamin with iron 1 ea PO DAILY 07/05/13 aspirin 125 mg PO DAILY tab-cap 03/17/14 calcium-magnesium 750 mg-465 mg 1 tab PO DAILY 02/23/20 tablet diltiazem HCl 120 mg 120 mg PO QAM #90 cap 11/05/20 capsule,extended release 24 hr hydrochlorothiazide 12.5 mg tablet 12.5 mg PO QAM #90 tab 11/05/20 losartan 50 mg tablet 50 mg PO DAILY #90 tab 02/02/21 valerian root 100 mg capsule 100 mg PO QHS PRN cap 02/10/21 loperamide [Imodium A-D] 2 mg PO Q4H PRN 02/18/21 Current Visit Medications: Current Medications Generic Name Dose Route Start Last Admin Trade Name Alliq PRN Reason Stop Dose Admin Acetaminophen 1,000 mg 02/23/21 06:00 02/23/21 07:10 Acetaminophen 500 Mg Tab PO 03/24/21 23:59 1,000 mg PREOP JAIR Administration Ringer's Solution 1,000 mls @ 80 mls/hr 02/23/21 06:00 02/23/21 07:31 IV 03/24/21 23:59 80 mls/hr INFUSION JAIR Administration Cefazolin Sodium/Dextrose 2 gm in 50 mls @ 100 mls/hr 02/23/21 06:00 Ancef Duplex IVPB 03/24/21 23:59 PREOP JAIR Ondansetron HCl 4 mg/ Sodium 52 mls @ 200 mls/hr 02/23/21 06:42 Chloride IVPB Q6H PRN PRN IV Miscellaneous Supplies 1 each 02/23/21 06:00 Iv Access IV 03/24/21 23:59 DIRECTED JAIR Sodium Chloride 0 ml 02/23/21 06:00 Normal Saline Flush 10 Ml Syr IV 03/24/21 23:59 PRN PRN Sodium Chloride 0 ml 02/23/21 06:00 Normal Saline 10 Ml Vial IJ 03/24/21 23:59 DIRECTED PRN Sterile Water 0 ml 02/23/21 06:00 Water,Injection,Sterile 10 Ml Vial IJ 03/24/21 23:59 DIRECTED PRN Tramadol HCl 50 mg 02/23/21 06:42 Tramadol 50 Mg Tab PO Q6H PRN PRN Pain PFSH Active Problems Active Problems: Problem Status Onset Code Hypoxia R09.02 Dyspnea R06.00 Fatigue R53.83 Skin lesion of cheek 03/12/15 L98.9 Gallbladder polyp 11/10/14 K82.4 Cystocele, midline 05/26/10 N81.11 Allergic rhinitis 07/26/12 J30.9 Low back pain M54.5 Hypertension I10 Left breast mass N63.20 Adenocarcinoma of left breast ~12/2020 C50.912 Medical History Medical History Achilles tendonitis Adenocarcinoma of left breast (~12/2020) Allergic rhinitis Atrial fibrillation (09/02/13) Chronic cough (08/17/15) Cystocele Diarrhea Elevated BP without diagnosis of hypertension Essential hypertension Family history of breast cancer GERD (gastroesophageal reflux disease) (10/22/14) Gluteal pain (10/05/17) Hyperlipidemia Liver cyst (09/18/13) Lumbar radiculitis Microscopic hematuria Migraine Panic attacks Paroxysmal SVT (supraventricular tachycardia) Polyp of gallbladder (11/10/14) Pulmonary embolism (09/18/13) anti thrombin lll defic (declines warfarin) family hx of thrombosis Rales Renal mass (09/18/13) Suspected sleep apnea (08/17/15) Surgical History Surgical History Appendectomy bunionectomy History of surgery per patient some kind of gland on the side of my neck. Tonsillectomy Tobacco Smoking/Tobacco Use Status: Never Passive smoking exposure: Yes Alcohol Alcohol Intake: current Alcohol intake frequency: a few times a month Alcohol type: beer, wine and hard liquor Substance Use Substance use: Daily Substance use type: marijuana Details: last used 02/22/21 Vital Signs and Lab Results Vital Signs Most Recent Vital Signs in EMR: Most Recent Vital Signs Temp Pulse Resp BP Pulse Ox 36.6 C 59 L 16 134/70 96 02/23/21 06:53 02/23/21 06:53 02/23/21 06:53 02/23/21 06:53 02/23/21 06:53 Lab Results Blood Type / Crossmatch: No Data to Display Complete Blood Count: No Data to Display Complete Metabolic Panel: No Data to Display Liver Function Panel: No Data to Display Coagulation Panel: No Data to Display Cardiac Panel: No Data to Display Arterial Blood Gas: No Data to Display Venous Blood Gas: No Data to Display Pancreas Panel: No Data to Display Thyroid Panel: No Data to Display Infectious Disease: Coronavirus (COVID-19)(PCR) Negative (Negative) 02/18/21 08:50 02/18/21 Coronavirus 2019 Source Nasal/Nares 02/18/21 08:50 02/18/21 Blood Cultures: No Data to Display Toxicology Panel: No Data to Display Imaging and Studies Imaging and Studies Echocardiogram Summary: 2014: FINDINGS: LEFT VENTRICLE/LVEF: Normal size and systolic/diastolic function. Estimated LVEF 70%. RIGHT VENTRICLE: Normal size and systolic function. AORTIC VALVE: Trileaflet, opens well with trace regurgitation. MITRAL VALVE: Anatomically normal with trace regurgitation. TRICUSPID VALVE: Opens well with trace regurgitation. RSV/PA/RIGHT ATRIAL PRESSURE: RSV pressure normal. PULMONIC VALVE: Normal. ATRIA: Normal biatrial size. DIASTOLIC INDICES: Normal. GREAT VESSELS: Normal. PERICARDIUM: No effusion. Anesthesia Assessment and Plan Anesthesia History Personal History: No History of Anesthesia Complications Family History: No Family History of Anesthesia Complications Exercise Tolerance Exercise Tolerance: Metabolic Equivalents>4 Cardiac & Pulmonary Exam Cardiac Exam: Normal S1/S2 Heart Sounds Pulmonary Exam: Clear Bilateral Breath Sounds Airway Exam Known Difficult Airway: No Mallampati Class: 2 Mouth Opening: Normal (> 3cm) Thyromental Distance: Greater than 3 cm Neck Range of Motion: Full ROM Neck Circumference: Normal Teeth Condition: Normal Dentition ASA Classification ASA Score: ASA 3 Emergency Case?: No NPO Status NPO Status: NPO Clears >2 hours, Solids >8 hours Anesthesia Plan Resuscitation Status: Full Code Anesthesia Technique: General Anesthesia Airway Planned: Endotracheal Tube Monitors Used: Standard Monitors Preoperative Comments:: Poorly controlled GERD
[2021-02-23] MEDS: ceFAZolin 2 GM/50 ML BAG IVPB (09:40)
--- NOTE | 2021-02-23 10:14 | BREAST_PTH ---
PATIENT: Leti [place] LOC: [facility] U#:[id number] AGE/SX: 80/F ROOM: RE02/23/[address]: Lexi Crum MD : 1940 BED: DIS: 02/23/2021 SPEC #: [id number] RECD: 02/24/21 09:38 STATUS: JESSICA REJhony #: [id number] SONYA: 02/23/21 10:[address]: Lexi Crum DEPT: Surgical Specimen RECD BY: Rebecca Myers ENTERED: 02/24/21 09:45 SP TYPE: Breast OTHR DR: SARAH Kaminski Tissues: 1 - BREAST BX NEEDLE 2 - BREAST BX NEEDLE Procedures: GROSS AND MICRO LEVEL 5 Comments: [id number] (ALL SPECIMENS RADIOACTIVE)
--- NOTE | 2021-02-23 10:15 | DI.MAMMO_ITS ---
Exam(s) MG MAMMO NEEDLE LOC UNI EXAM: MG MAMMO NEEDLE LOC UNI CLINICAL HISTORY: intraop. TECHNIQUE: COMPARISON: Comparison with prior examinations. FINDINGS: Breast specimen images were obtained. The biopsy clip is noted within the breast specimen as is the localization wire. The asymmetric breast tissue of concern is located within the breast specimen.The se results were given to Dr. Crum of the department of surgery on the date of the examination. Impression:
[2021-02-23] MEDS: Bupivacaine 0.25% Pres-Free 30 ML VIAL (10:54)
--- NOTE | 2021-02-23 11:29 | W.ANESPOSTOP ---
Postoperative Evaluation Date, Time and Location Date Performed: 02/23/21 Time Performed: 11:29 Patient Location: PACU Vital Signs Most Recent Imported Vital Signs: Most Recent Vital Signs Temp Pulse Resp BP Pulse Ox 36.3 C L 43 L 13 149/66 H 96 02/23/21 11:10 02/23/21 11:10 02/23/21 11:10 02/23/21 11:10 02/23/21 11:10 Pain Score Most Recent Pain Score: Most Recent Pain Score Pain Level 0 02/23/21 11:10 Assessment Mental Status: Awake (Alert & Oriented to Patient Baseline) Airway and Respiratory Function: Patent airway with normal (patient baseline) respiratory exam Cardiovascular Function: Hemodynamically Stable Hydration Status: Adequately Hydrated Nausea & Vomiting: No Nausea or Vomiting Pain: Pt. Denies Any Pain Peripheral Nerve Block: Patient did not receive a nerve block
== END 2021-02-23 12:52 | disposition home or self-care (01) ==
PROVIDERS: PCP Nurse Practitioner Family; Visit Provider Surgery
PROC: (CPT 19302; principal; 2021-02-23 09:15)
PROC: (CPT 38525; 2021-02-23 09:15)
DX: C50.412 Malignant neoplasm of upper-outer quadrant of left female breast
CPT/HCPCS: 38525; 19301; 38792; 19285; C1819; 88305; A9541; 19281; 76942; 88307; J0690; J1100; J2001; J2405

== ENCOUNTER → 2021-03-01 08:27 | Outpatient (BNVA) | payer MEDICARE, OTHER, SELFPAY | PROVIDERS: PCP Nurse Practitioner Family; Referring Provider Nurse Practitioner Family; Visit Provider Surgery | DX: Z48.817 Encounter for surgical aftercare following surgery on the skin and subcutaneous tissue (principal); C50.912 Malignant neoplasm of unspecified site of left female breast ==

== ENCOUNTER 2021-03-09 06:06 | Day surgery (SDC) | payer MEDICARE, OTHER, SELFPAY ==
--- NOTE | 2021-03-09 06:18 | W.PREOPHP ---
Date of service: 03/09/21 Time of Service: 06:18 Assessment and Plan Assessment and plan (1) Encounter for colorectal cancer screening: Status: Acute Assessment and plan: Leti is a pleasant 80 year old female here for a screening colonoscopy. She was recently diagnosed with Breast cancer and has undergone lumpectomy and SLN bx. She has had no changes in bowel habits, melena ,hematochezia or unintentional weight loss. Risks, benefits and complications were reviwed. Risks, benefits and complications have been reviewed. Complications include but are not limited to bleeding, pain, perforation, missed small lesion/polyp, sore throat, aspiration and adverse reaction to the medications. Questions were entertained and answered to their satisfaction and they wished to proceed. No guarantees were given or implied. Colonoscopy under sedation History of Present Illness Narrative: Leti was seen in follow up for her Breast Cancer and we discussed undergoing a screening colonoscopy which she is due for. She denies any changes in bowel habits, hematochezia, melena, abdominal pain, unintentional weight loss or family history of colon cancer. Review of Systems Constitutional Constitutional: Denies fatigue, Denies fever(s), Denies headache(s) and Denies weight loss Eyes Eyes: Denies change in vision ENT Ears, Nose, Mouth, and Throat: Denies change in voice, Denies headache(s) and Denies hoarseness Cardiovascular Cardiovascular: Denies chest pain, Denies chest pain at rest, Denies irregular heart rhythm, Denies dyspnea and Denies dyspnea on exertion Respiratory Respiratory: Denies cough, Denies dyspnea and Denies dyspnea on exertion Gastrointestinal Gastrointestinal: Reports as per HPI, Denies dyspepsia and Denies heartburn Genitourinary Genitourinary: Denies dysuria, Denies urinary incontinence and Denies urinary urgency Neurologic Neurologic: Denies headache(s) Endocrine Endocrine: Reports system reviewed and no additional complaints, except as documented and Denies fatigue Hematologic/Lymphatic Hematologic/Lymphatic: Denies easy bruising and Denies lymphadenopathy [facility] Medical History Achilles tendonitis Adenocarcinoma of left breast (~12/2020) Allergic rhinitis Atrial fibrillation (09/02/13) Chronic cough (08/17/15) Cystocele Diarrhea Elevated BP without diagnosis of hypertension Essential hypertension Family history of breast cancer GERD (gastroesophageal reflux disease) (10/22/14) Gluteal pain (10/05/17) Hyperlipidemia Liver cyst (09/18/13) Lumbar radiculitis Microscopic hematuria Migraine Panic attacks Paroxysmal SVT (supraventricular tachycardia) Polyp of gallbladder (11/10/14) Pulmonary embolism (09/18/13) anti thrombin lll defic (declines warfarin) family hx of thrombosis Rales Renal mass (09/18/13) Suspected sleep apnea (08/17/15) Surgical History Appendectomy bunionectomy History of surgery per patient some kind of gland on the side of my neck. Tonsillectomy Family History Mother , age 78 Essential hypertension Cancer Father Essential hypertension Heart disease Sister , age 76 Essential hypertension Asthma Colon cancer Brother , age 76 Essential hypertension Heart disease Lung cancer Sister , age 70 Cancer Maternal Grandmother , 20s? TB (pulmonary tuberculosis) Son Cancer Daughter No problems noted. Daughter No problems noted. Son No problems noted. Maternal Grandfather , age 92 No problems noted. Paternal Grandfather No problems noted. Paternal Grandmother No problems noted. Social History Smoking/Tobacco Use Status: Never Smoking risk assessment performed?: Yes Alcohol Intake: current Alcohol Intake frequency: a few times a month Alcohol type: beer, wine and hard liquor Drug use: Daily Substance use type: marijuana Caregiver/Support person: No Household members: none Housing: house Do you need help understanding health information?: Rarely Pets and animals: No Sexually active: No Do you think of yourself as: straight/heterosexual Current gender identity: female What is your relationship status?: How often do you talk on the phone with friends or family?: decline to answer How often do you get together with friends or relatives?: decline to answer How often do you attend islam or baptist services?: decline to answer Do you belong to any clubs or organized social groups?: yes Panel score (0-1 are the most socially isolated patients): 1 What type of physical activity do you participate in: walking and other Details: stretching Duration: 15-30 minutes/day Frequency: decline to answer Loni/Jew: Baptist Special loni needs: No Seatbelt use: always Helmet use: No Drive intox or ride w/intox delivery driver: No Do you feel safe at home: Yes Do you feel safe in your relationship?: Yes Meds Allergies and Home Medications Allergies Allergy/AdvReac Type Severity Reaction Status Date / Time Penicillins Allergy Mild Skin Rash Verified 03/09/21 06:20 Home Medications Medication Instructions Recorded Confirmed Type multivitamin with iron 1 ea PO DAILY 07/05/13 03/08/21 History aspirin 125 mg PO DAILY tab-cap 03/17/14 03/08/21 History calcium-magnesium 750 mg-465 mg 1 tab PO DAILY 02/23/20 03/08/21 History tablet diltiazem HCl 120 mg 120 mg PO QAM #90 cap 11/05/20 03/08/21 Rx capsule,extended release 24 hr hydrochlorothiazide 12.5 mg tablet 12.5 mg PO QAM #90 tab 11/05/20 03/08/21 Rx losartan 50 mg tablet 50 mg PO DAILY #90 tab 02/02/21 03/08/21 Rx loperamide [Imodium A-D] 2 mg PO Q4H PRN 02/18/21 03/08/21 History polyethylene glycol 3350 17 17 g PO ONCE #238 g 03/03/21 03/08/21 Rx gram/dose oral powder Exam Const General: healthy appearing and comfortable Orientation: alert and oriented x3 HENMT Head: normocephalic and atraumatic Eyes Pupils: PERRL Resp Effort & Inspection: normal respiratory effort Auscultation: clear to auscultation bilaterally Cardio Rate: regular rate Rhythm: regular rhythm Heart Sounds: no click, no gallops and no murmurs GI Inspection: normal to inspection Palpation: soft and nontender
[2021-03-09 06:23] VITALS: BP 128/72; PULSE 62; RESP 16; TEMP 36.7; O2SAT 96
--- NOTE | 2021-03-09 06:25 | W.COLOREPORT ---
Date of service: 03/09/21 Time of Service: 08:09 Colonoscopy Report Date of procedure: 03/09/21 Pre-op diagnosis general: Colon Cancer Screening Post-op diagnosis procedure note: same (mild madden-diverticulosis) Procedure: Colonoscopy Surgeon: Lexi Crum Anesthesia Type: General:No Airway (ASA 2/victor manuel Pearce CRNA) Estimated blood loss (mL): 0 Pathology: none sent Complications: None Disposition: same day Indications: Leti is a pleasant 80 year old female here for a screening colonoscopy. She was recently diagnosed with Breast cancer and has undergone lumpectomy and SLN bx. She has had no changes in bowel habits, melena ,hematochezia or unintentional weight loss. Risks, benefits and complications were reviwed. Risks, benefits and complications have been reviewed. Complications include but are not limited to bleeding, pain, perforation, missed small lesion/polyp, sore throat, aspiration and adverse reaction to the medications. Questions were entertained and answered to their satisfaction and they wished to proceed. No guarantees were given or implied. Prep: Miralax/Dulcolax Procedure Start Time: 07:47 Procedure End Time: 08:05 Retraction Time: 10 minutes Findings: mild madden-diverticulosis Procedure Description: After informed consent was obtained the patient was taken to the procedure room and placed in a left decubitous position. Monitors were applied and a time out was done. The patients name, date of , procedure, allergies to medications and metal in their body was reviewed. The patient was then sedated. Once sedated and comfortable a rectal exam was done. External exam was normal. Internal exam revealed a normal sphincter tone and no palpable masses. The scope was then introduced and retro-flexed. No internal hemorrhoids, polyps or masses were identified on retro-flexion. The scope was then advanced to the cecum without difficulty. The ileocecal vlave and appendiceal orifice were identified. The prep was good. The scope was then slowly retracted over 10 minutes back into the rectum. There were no polyps. There was mild madden- diverticulosis noted. The scope was removed and the patient was woken up and taken back to Same day surgery in stable condition. The patient tolerated the procedure well and there were no immediate complications. Follow up: The patient should follow up as needed if they develop changes in bowel habits or other new gastrointestinal complaints.
--- NOTE | 2021-03-09 06:26 | W.PM.DSUDISC ---
Discharge Plan Disposition Patient Disposition: HOME Condition: Good Discharge Details Reason For Visit: SCREENING + FM HX Attending Provider: Lexi Crum Primary Care Provider: Ginger Meng Home Meds and New Rx's Prescriptions: Continued losartan 50 mg tablet 50 mg PO DAILY Qty: 90 RF: 3 calcium-magnesium 750-465 mg tablet 1 tab PO DAILY RF: 0 diltiazem HCl 120 mg capsule,extended release 24hr 120 mg PO QAM Qty: 90 RF: 4 hydrochlorothiazide 12.5 mg tablet 12.5 mg PO QAM Qty: 90 RF: 4 multivitamin with iron 1 EACH tablet 1 ea PO DAILY RF: 0 aspirin 325 MG tablet 325 mg PO DAILY RF: 0 loperamide [Imodium A-D] 2 mg Capsule 2 mg PO Q4H PRNRF: 0 Discontinued polyethylene glycol 3350 17 gram/dose powder 17 g PO ONCE Qty: 238 RF: 0 Discharge Instructions Instructions: Diverticulosis (DC) Additional Instructions: Findings: mild diverticulosis Follow up: as needed Please call if you develop: fevers >101.5 Nausea or Vomiting Abdominal pain that is not transient Rectal bleeding that is more then a tbsp A hard abdomen and inability to pass gas DAY SURGERY UNIT POST ENDOSCOPY INSTRUCTIONS Instructions for everyone who is given Anesthesia: For your safety, please do the following for the next 24 Hours: a. Do not drive or operate dangerous equipment b. Do not drink alcohol beverages or use any recreational drugs for the first 24 hours or while taking pain medications. The medications in your body may have a reaction that can be dangerous. c. Do not make any important decisions or sign any important papers 1. Generally there are no restrictions on your activity after a day or so has gone by, but you may feel a bit fatigued for a few days. 2. After you arrive home you may have a light meal and return to a normal diet as you can tolerate it without feeling sick to your stomach. 3. After surgery, you may feel pain or discomfort. This should be only transient, but if it persists please contact your doctor. 4. If there are any questions regarding the findings of your procedure, please feel free to contact your doctor. 6. If you are unable to contact your doctor with a problem, contact the hospital at [phone]. 7. Continue all your regular medications unless directed otherwise. I understand the above instructions and have no questions. Signature of Patient or Responsible Adult Escort Date/Time Name of Responsible Adult Escort Signature of Nurse Date/Time Activity:: Activity as Tolerated Diet:: high fiber diet Discharge Orders Discharge Orders: Discharge Order (Routine); Ordered 03/09/21 Ordered By: Lexi Crum DS: Diagnosis Discharge Diagnosis (1) Encounter for colorectal cancer screening: Status: Acute
--- NOTE | 2021-03-09 07:21 | W.ANESPRE ---
General Info Date of Service Date Performed: 03/09/21 Height: 5 ft 2 in Weight: 70.2 kg Body Mass Index (BMI): 28.3 Surgical Procedure: Operation Date: 03/09/21 07:35 Proposed Procedures Side Surgeon p Colonoscopy Lexi Crum MD Meds Allergies and Home Medications Allergies Allergy/AdvReac Type Severity Reaction Status Date / Time Penicillins Allergy Mild Skin Rash Verified 03/09/21 06:20 Home Medication Medication Instructions Recorded multivitamin with iron 1 ea PO DAILY 07/05/13 aspirin 325 mg PO DAILY tab-cap 03/17/14 calcium-magnesium 750 mg-465 mg 1 tab PO DAILY 02/23/20 tablet diltiazem HCl 120 mg 120 mg PO QAM #90 cap 11/05/20 capsule,extended release 24 hr hydrochlorothiazide 12.5 mg tablet 12.5 mg PO QAM #90 tab 11/05/20 losartan 50 mg tablet 50 mg PO DAILY #90 tab 02/02/21 loperamide [Imodium A-D] 2 mg PO Q4H PRN 02/18/21 polyethylene glycol 3350 17 17 g PO ONCE #238 g 03/03/21 gram/dose oral powder Current Visit Medications: Current Medications Generic Name Dose Route Start Last Admin Trade Name Freq PRN Reason Stop Dose Admin Hyoscyamine Sulfate 0.125 mg 03/09/21 06:27 Hyoscyamine 0.125 Mg Sl/Oral/Chew SL DIRECTED PRN Ringer's Solution 1,000 mls @ 80 mls/hr 03/09/21 06:00 IV 04/07/21 23:59 INFUSION COUNT INCLUDES THE [facility] IV Miscellaneous Supplies 1 each 03/09/21 06:00 Iv Access IV 04/07/21 23:59 DIRECTED JAIR Ondansetron HCl 4 mg 03/09/21 06:27 Ondansetron 4 Mg/2 Ml Vial IVP Q4H PRN PRN Nausea / Vomiting Sodium Chloride 0 ml 03/09/21 06:00 Normal Saline Flush 10 Ml Syr IV 04/07/21 23:59 PRN PRN Sodium Chloride 0 ml 03/09/21 06:00 Normal Saline 10 Ml Vial IJ 04/07/21 23:59 DIRECTED PRN Sterile Water 0 ml 03/09/21 06:00 Water,Injection,Sterile 10 Ml Vial IJ 08/19/21 23:59 DIRECTED PRN PFSH Active Problems Active Problems: Problem Status Onset Code Encounter for colorectal cancer screening Z12.11, Z12.12 Hypoxia R09.02 Dyspnea R06.00 Fatigue R53.83 Skin lesion of cheek 03/12/15 L98.9 Gallbladder polyp 11/10/14 K82.4 Cystocele, midline 05/26/10 N81.11 Allergic rhinitis 07/26/12 J30.9 Low back pain M54.5 Hypertension I10 Left breast mass N63.20 Adenocarcinoma of left breast ~12/2020 C50.912 Medical History Medical History Achilles tendonitis Adenocarcinoma of left breast (~12/2020) Allergic rhinitis Atrial fibrillation (09/02/13) Chronic cough (08/17/15) Cystocele Diarrhea Elevated BP without diagnosis of hypertension Essential hypertension Family history of breast cancer GERD (gastroesophageal reflux disease) (10/22/14) Gluteal pain (10/05/17) Hyperlipidemia Liver cyst (09/18/13) Lumbar radiculitis Microscopic hematuria Migraine Panic attacks Paroxysmal SVT (supraventricular tachycardia) Polyp of gallbladder (11/10/14) Pulmonary embolism (09/18/13) anti thrombin lll defic (declines warfarin) family hx of thrombosis Rales Renal mass (09/18/13) Suspected sleep apnea (08/17/15) Surgical History Surgical History Appendectomy bunionectomy History of surgery per patient some kind of gland on the side of my neck. Tonsillectomy Tobacco Smoking/Tobacco Use Status: Never Passive smoking exposure: Yes Alcohol Alcohol Intake: current Alcohol intake frequency: a few times a month Alcohol type: beer, wine and hard liquor Substance Use Substance use: Daily Substance use type: marijuana Vital Signs and Lab Results Vital Signs Most Recent Vital Signs in EMR: Most Recent Vital Signs Temp Pulse Resp BP Pulse Ox 36.7 C 62 16 128/72 96 03/09/21 06:23 03/09/21 06:23 03/09/21 06:23 03/09/21 06:23 03/09/21 06:23 Lab Results Blood Type / Crossmatch: No Data to Display Complete Blood Count: No Data to Display Complete Metabolic Panel: No Data to Display Liver Function Panel: No Data to Display Coagulation Panel: No Data to Display Cardiac Panel: No Data to Display Arterial Blood Gas: No Data to Display Venous Blood Gas: No Data to Display Pancreas Panel: No Data to Display Thyroid Panel: No Data to Display Infectious Disease: Coronavirus (COVID-19)(PCR) Negative (Negative) 02/18/21 08:50 02/18/21 Coronavirus 2019 Source Nasal/Nares 02/18/21 08:50 02/18/21 Blood Cultures: No Data to Display Toxicology Panel: No Data to Display Imaging and Studies Imaging and Studies Echocardiogram Summary: 2014: FINDINGS: LEFT VENTRICLE/LVEF: Normal size and systolic/diastolic function. Estimated LVEF 70%. RIGHT VENTRICLE: Normal size and systolic function. AORTIC VALVE: Trileaflet, opens well with trace regurgitation. MITRAL VALVE: Anatomically normal with trace regurgitation. TRICUSPID VALVE: Opens well with trace regurgitation. RSV/PA/RIGHT ATRIAL PRESSURE: RSV pressure normal. PULMONIC VALVE: Normal. ATRIA: Normal biatrial size. DIASTOLIC INDICES: Normal. GREAT VESSELS: Normal. PERICARDIUM: No effusion. Anesthesia Assessment and Plan Anesthesia History Personal History: No History of Anesthesia Complications Family History: No Family History of Anesthesia Complications Exercise Tolerance Exercise Tolerance: Metabolic Equivalents>4 Pertinent Negatives Pertinent Negatives: No Symptoms of GERD (History but no symptoms today) Cardiac & Pulmonary Exam Cardiac Exam: Normal S1/S2 Heart Sounds Pulmonary Exam: Clear Bilateral Breath Sounds Airway Exam Known Difficult Airway: No Mallampati Class: 2 Mouth Opening: Normal (> 3cm) Thyromental Distance: Greater than 3 cm Neck Range of Motion: Full ROM Neck Circumference: Normal Teeth Condition: Normal Dentition ASA Classification ASA Score: ASA 2 Emergency Case?: No NPO Status NPO Status: NPO Clears >2 hours, Solids >8 hours Anesthesia Plan Resuscitation Status: Full Code Anesthesia Technique: General Anesthesia Airway Planned: Natural Airway Monitors Used: Standard Monitors
[2021-03-09 07:25] VITALS: BMI 28.3
[2021-03-09] MEDS: Lactated Ringers 1,000 ML 80 ML IV (07:36)
[2021-03-09 08:19] VITALS: BP 89/48; PULSE 65; RESP 14; TEMP 36.5; O2SAT 97
[2021-03-09 08:41] VITALS: BP 129/78; PULSE 62; RESP 16; TEMP 36.6; O2SAT 97
--- NOTE | 2021-03-09 08:49 | W.ANESPOSTOP ---
Postoperative Evaluation Date, Time and Location Date Performed: 03/09/21 Time Performed: 08:42 Patient Location: Day Surgery Unit Vital Signs Most Recent Imported Vital Signs: Most Recent Vital Signs Temp Pulse Resp BP Pulse Ox 36.6 C 62 16 129/78 97 03/09/21 08:41 03/09/21 08:41 03/09/21 08:41 03/09/21 08:41 03/09/21 08:41 Pain Score Most Recent Pain Score: Most Recent Pain Score Pain Level 0 03/09/21 08:41 Assessment Mental Status: Awake (Alert & Oriented to Patient Baseline) Airway and Respiratory Function: Patent airway with normal (patient baseline) respiratory exam Cardiovascular Function: Hemodynamically Stable Hydration Status: Adequately Hydrated Nausea & Vomiting: No Nausea or Vomiting Pain: Pt. Denies Any Pain Peripheral Nerve Block: Patient did not receive a nerve block
== END 2021-03-09 09:16 | disposition home or self-care (01) ==
PROVIDERS: PCP Nurse Practitioner Family; Visit Provider Surgery
PROC: 0DJD8ZZ Inspection of Lower Intestinal Tract, Via Natural or Artificial Opening Endoscopic (ICD-10-PCS; CPT 45378; principal; 2021-03-09 07:30)
DX: Z12.11 Encounter for screening for malignant neoplasm of colon (principal); K57.30 Diverticulosis of large intestine without perforation or abscess without bleeding; C50.919 Malignant neoplasm of unspecified site of unspecified female breast
CPT/HCPCS: G0121; J2001

== ENCOUNTER → 2021-07-04 11:31 | Outpatient (BNVA) | payer MEDICARE, OTHER, SELFPAY | PROVIDERS: PCP Nurse Practitioner Family; Referring Provider Nurse Practitioner Family; Visit Provider Surgery | DX: S20.02XA Contusion of left breast, initial encounter (principal); X58.XXXA Exposure to other specified factors, initial encounter | CPT/HCPCS: 10160; 99213 ==

== ENCOUNTER 2021-07-04 18:51 | Outpatient (REF) | payer MEDICARE, OTHER, SELFPAY | END 2021-07-04 18:52 | disposition home or self-care (01) | LOC: LBN 18:51 | PROVIDERS: PCP Nurse Practitioner Family; Visit Provider Surgery | DX: N64.89 Other specified disorders of breast (principal) | CPT/HCPCS: 87077; 87070; 87186; 87205 ==

== ENCOUNTER 2021-07-11 00:49 | Outpatient (CLI) | payer MEDICARE, OTHER, SELFPAY ==
--- NOTE | 2021-07-11 10:30 | DI.DEXA_ITS ---
Exam(s) XR DEXA BONE DENSITY W/WO NEVAEH EXAM: XR DEXA BONE DENSITY W/WO NEVAEH CLINICAL HISTORY: ASYMPTOMATIC MENOPAUSAL Z78.0 USE OF AROMATASE INHIBITOR Z79.811 BREAST CAN TECHNIQUE: [employer] C densitometer COMPARISON: CR XR LUMBAR SPINE COMPLETE from 12/30/2020 DEXA scans 2009 and 2012 FINDINGS: Lateral view of the thoracic and lumbar spine shows no evidence of compression fractures. Bone mineral density measurements of the lumbar spine correspond to a total T-score of 3.4, in the no rmal range. Not significantly changed from 2012. 5.6 percent increase when compared with 2009. Inc reased bone density is likely secondary to degenerative changes with sclerotic endplate osteophytes. Bone mineral density measurements of the left hip correspond to a total T-score of -2.4. The femora l neck T-score is -3.0, in the osteoporotic range.. 3.0 percent decrease from 2012. 4.2 percent de crease from 2009. The right forearm bone mineral density measurements correspond to a T-score of the distal 3rd of -3. 9, consistent with osteoporosis. The right forearm was not analyzed on the previous exams.. IMPRESSION: Osteoporosis of the right forearm and left hip. Normal bone mineral density of the spine.
== END 2021-07-11 01:09 ==
PROVIDERS: PCP Nurse Practitioner Family; Visit Provider Internal Medicine
DX: Z78.0 Asymptomatic menopausal state (principal); C50.912 Malignant neoplasm of unspecified site of left female breast; M81.0 Age-related osteoporosis without current pathological fracture
CPT/HCPCS: 77080

== ENCOUNTER → 2021-07-12 11:10 | Outpatient (BNVA) | payer MEDICARE, OTHER, SELFPAY | PROVIDERS: PCP Nurse Practitioner Family; Referring Provider Nurse Practitioner Family; Visit Provider Surgery | DX: S20.02XD Contusion of left breast, subsequent encounter; X58.XXXD Exposure to other specified factors, subsequent encounter | CPT/HCPCS: 10160; 99212 ==

== ENCOUNTER 2021-07-12 14:07 | Outpatient (REF) | payer MEDICARE, OTHER, SELFPAY | END 2021-07-12 14:08 | disposition home or self-care (01) | LOC: LBN 14:07 | PROVIDERS: PCP Nurse Practitioner Family; Visit Provider Surgery | DX: N64.89 Other specified disorders of breast (principal) | CPT/HCPCS: 87077; 87070; 87186; 87205 ==

== ENCOUNTER → 2021-07-19 09:08 | Outpatient (BNVA) | payer MEDICARE, OTHER, SELFPAY | PROVIDERS: PCP Nurse Practitioner Family; Referring Provider Nurse Practitioner Family; Visit Provider Surgery | DX: N64.89 Other specified disorders of breast (principal) | CPT/HCPCS: 99212 ==

== ENCOUNTER 2021-08-10 01:53 | Outpatient (CLI) | payer MEDICARE, OTHER, SELFPAY ==
--- NOTE | 2021-08-10 07:15 | DI.US_ITS ---
Exam(s) US LOWER EXTREMITY VENOUS LT EXAM: US LOWER EXTREMITY VENOUS LT CLINICAL HISTORY: new onset left calf pain/edema, prior PE, ? DVT TECHNIQUE: Left lower extremity venous ultrasound performed using grayscale, color-flow, and spectra l Doppler analysis. COMPARISON: No exams were available for comparison FINDINGS: The left common femoral, femoral and popliteal veins demonstrate normal compressibility, augmentation , and color Doppler. The posterior tibial veins are patent. The saphenofemoral junction is unremarka ble. There is no evidence of a Alas cyst. The soft tissues are unremarkable. IMPRESSION: No DVT. DATA REPOSITORY:
== END 2021-08-10 02:13 ==
PROVIDERS: PCP Nurse Practitioner Family; Visit Provider Family Medicine
DX: M79.605 Pain in left leg (principal); R60.0 Localized edema
CPT/HCPCS: 93971

== ENCOUNTER 2021-08-16 02:59 | Outpatient (CLI) | payer MEDICARE, OTHER, SELFPAY ==
[2021-08-16 13:38] LABS: Abs Immature Grans 0.05 10^3/uL (0.0-0.06); Absolute Basophil Count 0.04 10^3/uL (0.0-0.2); Absolute Eosinophil Count 0.12 10^3/uL (0.0-0.7); Absolute Lymphocyte Count 2.65 10^3/uL (1.2-3.4); Absolute Monocyte Count 0.75 10^3/uL (0.1-0.8); Absolute Neutrophil Count 5.01 10^3/uL (1.2-6.7); Basophils % 0.5; Eosinophils % 1.4; HCT 41.6 % (36.0-46.0); HGB 14.3 g/dL (11.2-15.7); Immature Grans % 0.6; Lymphocytes % 30.7; MCH 33.6 pg (27.0-33.0); MCHC 34.4 % (32.0-36.0); MCV 97.9 fL (80-95); Monocytes % 8.7; Neutrophils % 58.1; Nucleated RBC 0 %; Platelet Count 219 10^3/uL (130-400); RBC 4.25 10^6/uL (3.93-5.22); RDW 11.8 % (11.7-14.6); RDW-SD 42.5 fL; WBC 8.62 10^3/uL (4.4-10.8)
[2021-08-16 13:56] LABS: ALT 39 U/L (14-59); AST 22 U/L (15-37); Albumin 4.3 g/dL (3.4-5.0); Alkaline Phosphatase 69 U/L (46-116); Anion Gap 8.2 mmol/L (3-11); BUN 22 mg/dL (7-18); Bilirubin, Total 0.8 mg/dL (0.2-1.0); CO2 28.8 mmol/L (21.0-32.0); Calcium 9.5 mg/dL (8.5-10.1); Chloride 100 mmol/L (98-107); Estimated GFR 53.08 (mL/min/1.73m2); Glucose 115 mg/dL (74-106); Potassium 3.8 mmol/L (3.5-5.1); Sodium 137 mmol/L (136-145); Total Protein 7.5 g/dL (6.4-8.2)
== END 2021-08-16 03:00 | disposition home or self-care (01) ==
PROVIDERS: PCP Nurse Practitioner Family; Visit Provider Internal Medicine
DX: C50.412 Malignant neoplasm of upper-outer quadrant of left female breast (principal); Z17.0 Estrogen receptor positive status [ER+]
CPT/HCPCS: 36415; 80053; 85025

== ENCOUNTER → 2021-08-18 09:02 | Outpatient (BNVA) | payer MEDICARE, OTHER, SELFPAY | PROVIDERS: PCP Nurse Practitioner Family; Referring Provider Nurse Practitioner Family; Visit Provider Surgery | DX: S20.02XD Contusion of left breast, subsequent encounter (principal); X58.XXXD Exposure to other specified factors, subsequent encounter | CPT/HCPCS: 99211 ==

== ENCOUNTER 2021-09-15 11:38 | Outpatient (CLI) | payer MEDICARE, OTHER, SELFPAY ==
--- NOTE | 2021-09-15 06:00 | DI.RAD_ITS ---
Exam(s) XR PAIN CLINIC LUMBAR SP 2V EXAM: XR PAIN CLINIC LUMBAR SP 2V CLINICAL HISTORY: DX: Lumbar Radiculopathy TECHNIQUE: 2D and realtime digital imaging was performed. CONTRAST MATERIAL: Refer to procedure report. COMPARISON: No exams were available for comparison FINDINGS: Fluoroscopy was provided for Dr. Jose during the performance of a lumbar epidural steroid injection. Please refer to the procedure report for complete details. Ka,r=5.29 mGy IMPRESSION:
[2021-09-15 11:47] VITALS: BP 125/69; PULSE 57; RESP 16; TEMP 36.9; O2SAT 97
[2021-09-15] MEDS: Omnipaque 240 MG/ML 50 ML BTL IJ (12:37)
[2021-09-15] MEDS: methylPREDNISolone ACETATE 80 MG/ML VIAL IJ (12:37)
[2021-09-15 12:38] VITALS: BP 140/85; PULSE 53; RESP 18; O2SAT 97
--- NOTE | 2021-09-15 13:08 | PDOC.PAIN_ITS ---
Pain Clinic Procedure Note Procedure Note Procedure Note: Lumbar Epidural Steroid Injection Procedure Note COMMENTS: She has had several of these in the past with good relief. Pre- procedure pain VAS was 5/10. DX: Lumbosacral radiculopathy Leti Dallas has been referred to the [facility] for lumbar epidural steroid injection. The patient was greeted by the nurse who verified patients name and . Patient was then taken to the fluoroscopy suite. The patient was interviewed and the medial record reviewed. There were no medical, pharmacologic, radiographic, or other structural contraindications to attempting fluoroscopically guided lumbar epidural steroid injection. Risks and expected side effects as well as potential benefits of the procedure were reviewed and voiced concerns expressed. The patient consent form was signed and witnessed. Standard patient time-out procedure was performed. The patient was placed in the prone position on the fluoroscopy table and automated blood pressure cuff and pulse oximeter applied. The skin entry point for entering/approaching the epidural space at L5-S1 and marked. Following thorough chlorhexadine preparation of the skin and draping and 1% lidocaine infiltration of the skin entry point and subcutaneous tissues, a 18 gauge Touhy needle was placed under fluoroscopic guidance and with loss of resistance technique into the epidural space. Needle tip placement and depth were aided and confirmed by fluoroscopy. There was no paresthesia or return of blood or CSF through the needle. 1 cc's of Omnipaque 240 was injected with clear epidural spread confirmed with fluoroscopy. 80mg depomedrol was injected. There was not any unusual discomfort expressed by Leti Dallas. Patient's vital signs were stable throughout the procedure and were as recorded in nursing records. Follow up plans and appointments were discussed with patient. Post procedure instruction was given as documented in nursing records and having met discharge criteria and was discharged from the [facility] Management Center. COMMENTS: If this procedure is helpful, it can be completed up to 3 times per 12 months. Post-procedure pain VAS = 1/10. Kevin Jose DO, MPH [facility]-Pain Management [facility]-Center for Pain Management
== END 2021-09-15 11:39 | disposition home or self-care (01) ==
LOC: PC 11:38
PROVIDERS: PCP Nurse Practitioner Family; Visit Provider Preventive Medicine Occupational Medicine
DX: M54.17 Radiculopathy, lumbosacral region (principal)
CPT/HCPCS: 62323; 72100; J1040; Q9967

== ENCOUNTER 2021-10-26 01:25 | Outpatient (CLI) | payer MEDICARE, OTHER, SELFPAY ==
--- NOTE | 2021-10-26 15:07 | DI.MRI_ITS ---
Exam(s) MR LUMBAR SPINE WO EXAM: MR LUMBAR SPINE WO CLINICAL HISTORY: Worsening lumbar radiculopathy,back pain,m54.16. TECHNIQUE: Multiplanar multisequence MRI was performed. FINDINGS: MR examination the lumbosacral spine was performed according to the usual protocol. There are multilevel Ema discal vertebral signal changes consistent with disc degeneration. There i s loss of height of intervertebral discs throughout the lumbar spine and loss of signal is noted thro ughout consistent with disc degeneration. There is multi level prominent facet hypertrophic change. Conus medullaris appears intact. At T10-11 and T11-12, there are mild disc bulges without disc herniation. No central canal spinal st enosis. At T12-L1, there is moderate disc bulge without significant focal disc herniation. No central canal spinal stenosis or neural foraminal stenosis. At L1 L2, there is mild bilateral lateral recess stenosis and mild bilateral neural foraminal narrowi ng right greater than left. No focal disc herniation. Borderline central canal spinal stenosis. At L2-3, there is a prominent disc bulge without significant disc herniation. There is marked facet hypertrophy. There is moderate central canal spinal stenosis and bilateral neural foraminal stenosis right greater than left. At L3-4, there is prominent disc bulge with superimposed left-sided broad-based disc herniation. The re is moderate to severe central canal spinal stenosis and there is marked lateral recess stenosis on the left. There is mild right-sided neural foraminal narrowing without significant left-sided neura l foraminal stenosis. At L4-5, there is prominent disc bulge with marked facet hypertrophy and possible right lateral disc herniation. There is severe central canal spinal stenosis. There is mild bilateral neural foraminal stenosis. At L5-S1, there is moderate disc bulge and prominent facet hypertrophic changes. There is moderate c entral canal spinal stenosis. No definite disc herniation. Comparison of the current examination with prior examination of February 2019 shows some interval progres gavino of findings at L5-S1, and L4-5, little interval change in appearance at the L3-4 level or the L2 -3 level. IMPRESSION: Severe hypertrophic degenerative changes, some interval progression of findings at L 4 5 and L5-S1 as described above. Please see above discussion for findings at individual levels. The most severe fi ndings are at L3-4 and L4-5 levels, where there are changes of severe central canal spinal stenosis.. DATA REPOSITORY:
== END 2021-10-26 01:45 ==
PROVIDERS: PCP Nurse Practitioner Family; Visit Provider Preventive Medicine Occupational Medicine
DX: M47.26 Other spondylosis with radiculopathy, lumbar region; M47.27 Other spondylosis with radiculopathy, lumbosacral region; M48.062 Spinal stenosis, lumbar region with neurogenic claudication
CPT/HCPCS: 72148

== ENCOUNTER 2021-11-16 12:08 | Outpatient (CLI) | payer MEDICARE, OTHER, SELFPAY ==
--- NOTE | 2021-11-16 06:00 | DI.RAD_ITS ---
Exam(s) XR PAIN CLINIC LUMBAR SP 2V EXAM: XR PAIN CLINIC LUMBAR SP 2V CLINICAL HISTORY: Dx: Lumbar Radiculopathy. TECHNIQUE: Fluoroscopy was provided for the referring physician for guidance with performing injecti on procedure. COMPARISON: No exams were available for comparison FINDINGS: Please see procedure note for details. Fluoro time: 18.3 seconds RADIATION DOSE DELIVERED: Ka,r=6.53 mGy
[2021-11-16 12:23] VITALS: BP 130/80; PULSE 78; RESP 16; TEMP 36.6; O2SAT 96
--- NOTE | 2021-11-16 12:44 | PDOC.PAIN_ITS ---
Pain Clinic Procedure Note Procedure Note Procedure Note: Lumbar Epidural Steroid Injection Procedure Note COMMENTS: She had this procedure with me here in the past with excellent results. Her pre-procedure pain level was 8/10. The pain is radiating down the right leg. Dx: Lumbar radiculopathy Leti Dallas has been referred to the Pain Management Center for lumbar epidural steroid injection. The patient was greeted by the nurse who verified patients name and . Patient was then taken to the fluoroscopy suite. The patient was interviewed and the medial record reviewed. There were no medical, pharmacologic, radiographic, or other structural contraindications to attempting fluoroscopically guided lumbar epidural steroid injection. Risks and expected side effects as well as potential benefits of the procedure were reviewed and voiced concerns expressed. The patient consent form was signed and witnessed. Standard patient time-out procedure was performed. The patient was placed in the prone position on the fluoroscopy table and automated blood pressure cuff and pulse oximeter applied. The skin entry point for entering/approaching the epidural space at L5-S1 and marked. Following thorough chlorhexadine preparation of the skin and draping and 1% lidocaine infiltration of the skin entry point and subcutaneous tissues, a 18 gauge Touhy needle was placed under fluoroscopic guidance and with loss of resistance techn ique into the epidural space. Needle tip placement and depth were aided and confirmed by fluoroscopy. There was no paresthesia or return of blood or CSF through the needle. 1 cc's of Omnipaque 240 was injected with clear epidural spread confirmed with fluoroscopy. 80mg depomedrol was injected. There was not any unusual discomfort expressed by Leti Dallas. Patient's vital signs were stable throughout the procedure and were as recorded in nursing records. Follow up plans and appointments were discussed with patient. Post procedure instruction was given as documented in nursing records and having met discharge criteria and was discharged from the Pain Management Center. COMMENTS: If this procedure is helpful, it can be completed up to 3 times per 12 months. Post-procedure pain VAS = 4/10. Kevin Jose DO, MPH [facility]-Pain Management [facility]-Center for Pain Management
[2021-11-16] MEDS: Omnipaque 240 MG/ML 50 ML BTL IJ (12:47)
[2021-11-16 12:48] VITALS: BP 125/89; PULSE 57; RESP 18; O2SAT 97
[2021-11-16] MEDS: methylPREDNISolone ACETATE 80 MG/ML VIAL IJ (12:48)
== END 2021-11-16 12:09 | disposition home or self-care (01) ==
LOC: PC 12:09
PROVIDERS: PCP Nurse Practitioner Family; Visit Provider Preventive Medicine Occupational Medicine
DX: M54.16 Radiculopathy, lumbar region (principal)
CPT/HCPCS: 62323; 72100; J1040; Q9967

== ENCOUNTER 2021-12-26 00:35 | Outpatient (CLI) | payer MEDICARE, OTHER, SELFPAY ==
--- NOTE | 2021-12-26 07:45 | DI.US_ITS ---
Exam(s) US HERNIA EXAM: US HERNIA CLINICAL HISTORY: right groin pain ? hernia,R10.31. TECHNIQUE: Ultrasound was performed using standard protocol. COMPARISON: No exams were available for comparison FINDINGS: Sonographic assessment utilizing grayscale and color Doppler imaging was performed and targeted to th e area of clinical concern. No inguinal hernia is identified. There is no evidence of adenopathy. IMPRESSION: No hernia is demonstrated by ultrasound. DATA REPOSITORY:
--- NOTE | 2021-12-26 07:45 | DI.RAD_ITS ---
Exam(s) XR HIP RT COMPLETE AP PELVIS EXAM: XR HIP RT COMPLETE AP PELVIS INDICATION: right groin pain,ARTHRALGIA RT HIP,M25.559. COMPARISON: CR XR HIP LT COMPLETE AP PELVIS from 11/08/2020 TECHNIQUE: 2D digital imaging was performed. Two views. FINDINGS: Moderate narrowing right hip joint space. Mild periarticular spurring. Small calcification adjacent to right greater trochanter, unchanged. Mild narrowing of the left hip joint space. Mild spurring at the SI joints. Advanced degenerative changes are noted in the lower lumbar spine. IMPRESSION: Moderate degenerative changes left hip. Mild degenerative changes right hip. DATA REPOSITORY: RADIATION DOSE DELIVERED:
== END 2021-12-26 00:55 ==
PROVIDERS: PCP Nurse Practitioner Family; Visit Provider Emergency Medicine
DX: R10.31 Right lower quadrant pain (principal); M25.551 Pain in right hip; M16.11 Unilateral primary osteoarthritis, right hip; M53.3 Sacrococcygeal disorders, not elsewhere classified
CPT/HCPCS: 76857; 73502

== ENCOUNTER → 2022-01-26 13:02 | Outpatient (BNVA) | payer MEDICARE, OTHER, SELFPAY | PROVIDERS: PCP Nurse Practitioner Family; Referring Provider Nurse Practitioner Family; Visit Provider Physician Assistant Surgical | DX: M16.11 Unilateral primary osteoarthritis, right hip (principal); M16.12 Unilateral primary osteoarthritis, left hip | CPT/HCPCS: 99213 ==

== ENCOUNTER 2022-02-14 02:34 | Outpatient (CLI) | payer MEDICARE, OTHER, SELFPAY ==
[2022-02-14 10:29] LABS: Abs Immature Grans 0.04 10^3/uL (0.0-0.06); Absolute Basophil Count 0.04 10^3/uL (0.0-0.2); Absolute Lymphocyte Count 1.78 10^3/uL (1.2-3.4); Absolute Monocyte Count 0.55 10^3/uL (0.1-0.8); Absolute Neutrophil Count 4.67 10^3/uL (1.2-6.7); Basophils % 0.6; Eosinophils % 1.4; HCT 41.5 % (36.0-46.0); HGB 14.3 g/dL (11.2-15.7); Immature Grans % 0.6; Lymphocytes % 24.8; MCH 33.9 pg (27.0-33.0); MCHC 34.5 % (32.0-36.0); MCV 98 fL (80-95); MPV 8.3 fL (8.0-11.0); Monocytes % 7.7; Neutrophils % 64.9; Platelet Count 235 10^3/uL (130-400); RBC 4.22 10^6/uL (3.93-5.22); RDW 11.4 % (11.7-14.6); RDW-SD 41.3 fL; WBC 7.18 10^3/uL (4.4-10.8)
[2022-02-14 10:45] LABS: ALT 28 U/L (14-59); AST 18 U/L (15-37); Albumin 4.1 g/dL (3.4-5.0); Alkaline Phosphatase 75 U/L (46-116); Anion Gap 10.9 mmol/L (3-11); BUN 19 mg/dL (7-18); Bilirubin, Total 0.7 mg/dL (0.2-1.0); CO2 24.1 mmol/L (21.0-32.0); CREATININE 0.8 mg/dL (0.55-1.02); Calcium 9.2 mg/dL (8.5-10.1); Chloride 101 mmol/L (98-107); Glucose 117 mg/dL (74-106); Potassium 3.8 mmol/L (3.5-5.1); Sodium 136 mmol/L (136-145)
== END 2022-02-14 02:35 | disposition home or self-care (01) ==
LOC: LBO 02:35
PROVIDERS: PCP Nurse Practitioner Family; Visit Provider Internal Medicine
DX: C50.912 Malignant neoplasm of unspecified site of left female breast (principal)
CPT/HCPCS: 36415; 80053; 85025

== ENCOUNTER → 2022-02-23 02:01 | Outpatient (CLI) | payer MEDICARE, OTHER, SELFPAY ==
--- NOTE | 2022-02-23 08:15 | DI.RAD_ITS ---
Exam(s) RF JOINT INJECTION FLUORO GUID EXAM: RF JOINT INJECTION FLUORO GUID CLINICAL HISTORY: R HIP INJ UNDER FLUORO, rt hip pain, m25.551 TECHNIQUE: Fluoroscopy provided. Radiologist not present. CONTRAST MATERIAL: None COMPARISON: No exams were available for comparison FINDINGS: Fluoroscopy was provided for therapeutic right hip injection. Please refer to the procedure report for complete details. Cumulative Dose: Kar=0.43 mGy IMPRESSION: RADIATION DOSE DELIVERED:
[2022-02-23] MEDS: Omnipaque 300 MG/ML 10 ML BTL IJ (14:38)
[2022-02-23] MEDS: Bupivacaine 0.5% Pres-Free 10 ML VIAL 5 ML IJ (14:40)
[2022-02-23] MEDS: methylPREDNISolone ACETATE 80 MG/ML VIAL IM (14:41)
--- NOTE | 2022-02-23 14:48 | W.PROCNOTE ---
Date of service: 02/23/22 Time of Service: 14:10 Procedure Note Date of procedure: 02/23/22 Procedure: Right Hip Injection with Fluoroscopic Guidance Surgeon/Proceduralist/Physician: Chris Oviedo Procedure Diagnosis: Right Hip Osteoarthritis Procedure Indications: Leti has had persistent pain of the RIGHT hip and groin. Noninvasive measures have been tried. To serve as both diagnostic and therapeutic, an injection under fluoroscopy was recommended. I had discussed the risks of the procedure and the patient elected to proceed. Procedure Description: Leti was greeted in the flouroscopy room. The correct side was identified and the consent was reviewed with the patient and signed. The patient was then placed in the supine position on the fluoroscopy table. The RIGHT hip was then prepped with Chloraprep. The anterolateral injection starting point was identiifed by bony landmarks and fluoroscopy. The skin and soft tissue in the tract of the injection was anesthetized with 1% Lidocaine. A spinal needle was then inserted deep into the hip joint at the level of the lateral femoral neck under fluoroscopic guidance. A small amount of Omnipaque solution was injected to confirm intraarticular placement. Once confirmed, the hip was injected with 6cc of 0.5% Bupivicaine and 80mg of Depo-Medrol. A bandaid was placed on the injection site. The patient tolerated the procedure well and noted improvement in pre-injection pain.
== END ==
PROVIDERS: PCP Nurse Practitioner Family; Visit Provider Student in an Organized Health Care Education/Training Program
DX: M25.551 Pain in right hip (principal)
CPT/HCPCS: 20610; 77002; J1040

== ENCOUNTER → 2022-04-04 01:12 | Outpatient (CLI) | payer MEDICARE, OTHER, SELFPAY ==
--- NOTE | 2022-04-04 11:13 | DI.MAMMO_ITS ---
Exam(s) MG MAMMO SCREENING 60 MIN DUR EXAM: MG MAMMO SCREENING 60 MIN DUR CLINICAL HISTORY: SCREENING, H/O LT BREAST CA AND RADIOTHERAPY, YEARLY. TECHNIQUE: Bilateral full field digital CC and MLO mammographic images were obtained with 3D tomosyn thesis and utilizing computer aided detection (CAD). Also performed additional spot compression views in the medial aspect left breast. COMPARISON: Prior mammograms were reviewed, the most recent being . This patient underwent recent left breast lumpectomy malignancy on 02/23/2021. FINDINGS: There are no new significant radiograph findings in the right breast. The left breast lumpectomy site appears satisfactory. However, medially in the same-left breast ther e is some asymmetric density which was not evident on the prior studies. Additional spot compression views renders this area somewhat less concerning. There are no malignant-appearing microcalcificati on groups in this region nor elsewhere in the left breast including the lumpectomy site. IMPRESSION: No radiographic evidence of malignancy in the right breast. Satisfactory appearance of the lumpectomy site in the lateral aspect of the left breast. Asymmetric benign-appearing tissue medially in the right breast. This, however, it was not evident on prior sohan mograms. Recommend repeat left breast mammogram in 6 months. BI-RADS Category 3 - 6 month - Probably Benign Finding: Recommend follow-up mammography in 6 months Breast Density - Category B - Scattered areas of fibroglandular density Breast density Category C or D implies that the patient has dense breast tissue. Dense breast tissue can make it harder to find cancer on a mammogram. Dense breast tissue is also associated with an incr eased risk of breast cancer. This information about the result of the mammogram report was provided to the patient to raise their awareness. Use this report when you speak with the patient about their risks for breast cancer, which includes their family history. At that time, you may recommend additional screening tests (Ultrasoun d or MRI) as these tests may add significant information. A negative radiographic report should not delay biopsy if a dominant or clinically suspicious mass is present. Up to ten percent of cancers are not identified on mammography. A negative report may reinforce clinical impression. Adenosis and dense breasts may obscure an underlying neoplasm. False positive reports average 6 to 10%. Patient will receive a letter notifying them of these results.
== END ==
PROVIDERS: PCP Nurse Practitioner Family; Visit Provider Radiology Radiation Oncology
DX: Z12.31 Encounter for screening mammogram for malignant neoplasm of breast (principal); Z85.3 Personal history of malignant neoplasm of breast
CPT/HCPCS: 77063; 77067

== ENCOUNTER → 2022-05-15 10:00 | Outpatient (BNVA) | payer MEDICARE, OTHER, SELFPAY | PROVIDERS: PCP Nurse Practitioner Family; Referring Provider Nurse Practitioner Family; Visit Provider Student in an Organized Health Care Education/Training Program | DX: M16.11 Unilateral primary osteoarthritis, right hip (principal) | CPT/HCPCS: 99213 ==

== ENCOUNTER 2022-06-19 02:48 | Outpatient (CLI) | payer MEDICARE, OTHER, SELFPAY ==
[2022-06-19 13:30] LABS: HCT 40.1 % (36.0-46.0); HGB 14.1 g/dL (11.2-15.7); MCH 33.4 pg (27.0-33.0); MCHC 35.2 % (32.0-36.0); MCV 95 fL (80-95); MPV 8.3 fL (8.0-11.0); Platelet Count 232 10^3/uL (130-400); RBC 4.22 10^6/uL (3.93-5.22); RDW 11.6 % (11.7-14.6); RDW-SD 40.4 fL; WBC 7.95 10^3/uL (4.4-10.8)
[2022-06-19 13:49] LABS: Anion Gap 10.5 mmol/L (3-11); BUN 18 mg/dL (7-18); CO2 25.5 mmol/L (21.0-32.0); CREATININE 0.7 mg/dL (0.55-1.02); Calcium 9.7 mg/dL (8.5-10.1); Chloride 101 mmol/L (98-107); Estimated GFR 85.76 (mL/min/1.73m2); Glucose 97 mg/dL (74-106); Potassium 4.1 mmol/L (3.5-5.1); Sodium 137 mmol/L (136-145)
== END 2022-06-19 02:49 | disposition home or self-care (01) ==
LOC: LBO 02:48
PROVIDERS: PCP Nurse Practitioner Family; Visit Provider Student in an Organized Health Care Education/Training Program
DX: M25.551 Pain in right hip (principal); M16.11 Unilateral primary osteoarthritis, right hip; Z01.818 Encounter for other preprocedural examination; Z01.812 Encounter for preprocedural laboratory examination
CPT/HCPCS: 36415; 80048; 85027

== ENCOUNTER 2022-06-19 13:22 | Outpatient (CLI) | payer MEDICARE, OTHER, SELFPAY ==
--- NOTE | 2022-06-19 13:00 | DI.RAD_ITS ---
Exam(s) XR PELVIS AP EXAM: XR PELVIS AP CLINICAL HISTORY: right hip DJD. TECHNIQUE: 2D digital imaging was performed. One view. COMPARISON: CR XR HIP RT COMPLETE AP PELVIS from 12/26/2021 FINDINGS: BONES: No acute fracture is present. Multiple subchondral cysts are seen in the femoral head and righ t superior acetabulum. Surrounding periarticular spurring. JOINTS: No dislocation present. Severe narrowing with a [id number] appearance of the right hip julian nt. Mild spurring at the left hip joint. SOFT TISSUE: Normal. IMPRESSION: End-stage degenerative changes of the right hip. Mild degenerative changes of the left hip. DATA REPOSITORY: RADIATION DOSE DELIVERED:
== END 2022-06-19 13:23 | disposition home or self-care (01) ==
LOC: DIORS 13:23
PROVIDERS: PCP Nurse Practitioner Family; Referring Provider Nurse Practitioner Family; Visit Provider Physician Assistant
DX: M16.11 Unilateral primary osteoarthritis, right hip (principal); Z01.818 Encounter for other preprocedural examination
CPT/HCPCS: 36415; 80048; 85027; 72170

== ENCOUNTER 2022-06-26 10:16 | Emergency (ER) | payer MEDICARE, OTHER, SELFPAY ==
[2022-06-26 10:32] VITALS: BP 133/63; PULSE 76; RESP 18; TEMP 36.6; O2SAT 98
--- NOTE | 2022-06-26 10:59 | ED.GENADUL_ITS ---
Discharge Plan Disposition Patient Disposition: HOME Condition: Stable Discharge Details Clinical Impression: History of shingles Primary Care Provider: Ginger Meng ED Provider: Leyla Martines Home Meds and New Rx's Prescriptions: Continued calcium-magnesium 750-465 mg tablet 1 tab PO DAILY multivitamin with iron 1 EACH tablet 1 ea PO DAILY aspirin 325 MG tablet 325 mg PO DAILY diltiazem HCl 120 mg capsule,extended release 24hr 120 mg PO QAM Qty: 90 3RF hydrochlorothiazide 12.5 mg tablet 12.5 mg PO QAM Qty: 90 4RF losartan 50 mg tablet 50 mg PO DAILY Qty: 90 3RF valerian root 500 mg Capsule 500 mg PO DAILY Discharge Instructions Additional Instructions: Your lesions are crusted over and no longer contagious, you should be fine for surgery Please return should you have new or worsening complaints, should you develop new lesions or worsening symptoms, you should be reassessed at that time Referrals: Ginger Meng NP [Primary Care Provider] - Discharge Data Discharge Date/Time-TO BE ENTERED AT DEPARTURE: 06/26/22 11:07 Medical Decision Making Patient is greater than 5 days out from likely shingles diagnosis, lesions are crusted over and likely no longer contagious Ambulatory steady gait, otherwise well in appearance No evidence of hip involvement Return precautions discussed and patient was understanding Medical Records Medical records reviewed: Yes I reviewed the patient's medical records. Lab Data Lab results reviewed: Yes I reviewed the patient's lab results. HPI General Date/Time Provider Initiated Documentation: 06/26/22 10:39 . HPI Narrative: This 81-year-old female with history of GERD, atrial fibrillation, paroxysmal SVT presents with report of rash on left calf for 3 to 4 days. She denies any pain. She states that is actually improved, however she is scheduled for right hip surgery and wanted to have it evaluated prior to surgery Related Data Home Medications Medication Instructions Recorded Confirmed multivitamin with iron 1 ea PO DAILY 07/05/13 05/16/22 aspirin 325 mg tablet 325 mg PO DAILY 03/17/14 05/16/22 calcium-magnesium 750 mg-465 mg 1 tab PO DAILY 02/23/20 05/16/22 tablet diltiazem HCl 120 mg 120 mg PO QAM #90 caps 11/09/21 05/16/22 capsule,extended release 24 hr valerian root 500 mg capsule 500 mg PO DAILY 11/16/21 05/16/22 hydrochlorothiazide 12.5 mg tablet 12.5 mg PO QAM #90 tabs 01/17/22 05/16/22 losartan 50 mg tablet 50 mg PO DAILY #90 tabs 02/02/22 05/16/22 Previous Rx's Medication Instructions Recorded diltiazem HCl 120 mg 120 mg PO QAM #90 caps 11/09/21 capsule,extended release 24 hr hydrochlorothiazide 12.5 mg tablet 12.5 mg PO QAM #90 tabs 01/17/22 losartan 50 mg tablet 50 mg PO DAILY #90 tabs 02/02/22 Allergies Allergy/AdvReac Type Severity Reaction Status Date / Time Penicillins Allergy Mild Skin Rash Verified 06/19/22 13:48 General Stated Complaint: RashLesion EMANUEL: 5 Review of Systems All systems reviewed & are unremarkable except as noted in HPI and below PFSH All Active Problems (Updated 06/26/22 @ 11:01 by ANITA Kong) History of shingles (Acute) Chronic cough (Acute) Adenocarcinoma of left breast (Acute ~12/2020) s/p lumpectomy and SLN bx s/p Radiation on Hormone therapy Diverticulosis of colon (Acute) Hyperlipidemia (Acute) Lumbar back pain with radiculopathy affecting lower extremity (Acute) Osteoarthritis of left hip (Acute) Osteoarthritis of right hip (Acute) Essential hypertension (Acute) Right inguinal pain (Acute) Osteoporosis (Chronic) 2020-positive DEXA scan, patient managing nonpharmacologically Chronic rhinitis (Acute) Medical History (Updated 06/26/22 @ 11:01 by ANITA Kong) Atrial fibrillation GERD (gastroesophageal reflux disease) Paroxysmal SVT (supraventricular tachycardia) Prolapse of female pelvic organs Cystocele and uterine prolapse Pulmonary embolism (2013) Surgical History (Updated 06/19/22 @ 14:00 by Lilian Negro) Normal colonoscopy (~02/2021) S/P appendectomy S/P bunionectomy Right S/P lumpectomy of breast Left S/P tonsillectomy Family History Mother , age 78 Cancer Unknown type Hypertension Father Heart disease Hypertension Sister , age 76 Asthma Breast cancer Hypertension Lung cancer Sister , age 70 Colon cancer Heart disease Lung disease Brother , age 76 Lung cancer Hypertension Heart disease Son Prostate cancer Son No problems noted. Daughter No problems noted. Daughter No problems noted. Maternal Grandfather No problems noted. Maternal Grandmother TB (pulmonary tuberculosis) Paternal Grandfather No problems noted. Paternal Grandmother No problems noted. Social History Smoking/Tobacco Use Status: Never Second Hand Exposure: Yes Smoking risk assessment performed?: Yes Alcohol Intake: current Alcohol Intake frequency: holidays/special occasions o nly Alcohol type: beer, wine and hard liquor Drug use: Daily Substance use type: marijuana Details: last MJ use today in AM Caregiver/Support person: No Household members: none Housing: house Do you need help understanding health information?: Rarely Pets and animals: No Sexually active: No Do you think of yourself as: straight/heterosexual Current gender identity: female What is your relationship status?: How often do you talk on the phone with friends or family?: three or more times per week How often do you get together with friends or relatives?: decline to answer How often do you attend faith or baptism services?: decline to answer Do you belong to any clubs or organized social groups?: yes Panel score (0-1 are the most socially isolated patients): 2 What type of physical activity do you participate in: walking and other De tails: stretching Duration: < 15 minutes/day Frequency: daily Loni/Mandaeism: Hoahaoism Special loni needs: No Seatbelt use: always Helmet use: No Drive intox or ride w/intox driver's license examiner: No Do you feel safe at home: Yes Do you feel safe in your relationship?: Yes Exam Const General: cooperative, comfortable and no acute distress Resp Effort & Inspection: normal respiratory effort Cardio Rate: regular rate Other: distal pulses intact Neuro General: patient alert and patient oriented x3 Cognition: normal cognition Extrem Upper/lower leg/hip images: 1. Vesicular rash abrasions crusted over Course Vital Signs Vital signs: Vital Signs Temperature 36.6 C 06/26/22 10:32 Pulse 76 06/26/22 10:32 Respiratory Rate 18 06/26/22 10:32 Blood Pressure 133/63 06/26/22 10:32 Pulse Oximetry 98 06/26/22 10:32 Temperature 36.6 C 06/26/22 10:32 Temperature Source Tympanic 06/26/22 10:32 Pulse 76 06/26/22 10:32 Respiratory Rate 18 06/26/22 10:32 Blood Pressure 133/63 06/26/22 10:32 Blood Pressure Position Sitting 06/26/22 10:32 Pulse Oximetry 98 06/26/22 10:32 Oxygen Delivery Method Room Air 06/26/22 10:32 Oxygen Flow Rate 0 06/26/22 10:32 Pain Level 0 06/26/22 10:32
--- NOTE | 2022-06-26 12:32 | NUR.NOTE ---
Nursing Note: Faxed to Orthopedics that the patient has shingles and do they still want to do surgery that is scheduled? This was an FYI
== END 2022-06-26 11:07 | disposition home or self-care (01) ==
PROVIDERS: Emergency Provider Physician Assistant; PCP Nurse Practitioner Family
DX: R21 Rash and other nonspecific skin eruption (principal)
CPT/HCPCS: 99281

== ENCOUNTER 2022-06-28 09:17 | Day surgery (SDC) | payer MEDICARE, OTHER, SELFPAY ==
[2022-06-28] VITALS (10 sets, daily range): BP systolic 101–131; BP diastolic 46–77; PULSE 52–63; RESP 10–20; TEMP 36.3–37; O2SAT 97–99; BMI 23.1
--- NOTE | 2022-06-28 07:43 | W.PM.DS.N ---
Date of service: 06/28/22 Time of Service: 16:15 DS: Diagnosis Discharge Diagnosis (1) Osteoarthritis of right hip: Status: Acute Discharge Plan Disposition Patient Disposition: HOME Condition: Good Discharge Details Reason For Visit: right hip DJD Attending Provider: Chris Oviedo Primary Care Provider: Ginger Meng Home Meds and New Rx's Prescriptions: New celecoxib [Celebrex] 200 mg capsule 200 mg PO BID Qty: 30 0RF acetaminophen 500 mg tablet 500 mg PO Q6H PRN (Reason: pain) Qty: 60 2RF pantoprazole 40 mg tablet,delayed release (DR/EC) 40 mg PO DAILY 30 Days Qty: 30 0RF docusate sodium [Colace] 100 mg capsule 100 mg PO BID Qty: 30 0RF oxycodone 5 mg tablet 5 mg PO Q6H PRN (Reason: severe post-operative pain) Qty: 12 0RF Rx Instructions: Take one tablet up to every 6 hours as needed for severe pain Continued calcium-magnesium 750-465 mg tablet 1 tab PO DAILY multivitamin with iron 1 EACH tablet 1 ea PO DAILY aspirin 325 MG tablet 325 mg PO DAILY diltiazem HCl 120 mg capsule,extended release 24hr 120 mg PO QAM Qty: 90 3RF hydrochlorothiazide 12.5 mg tablet 12.5 mg PO QAM Qty: 90 4RF losartan 50 mg tablet 50 mg PO DAILY Qty: 90 3RF Held valerian root 500 mg Capsule 500 mg PO DAILY Hold Instructions: Resume on 07/13/22. Do not take valerian root for 2 weeks after surgery Discharge Instructions Additional Instructions: Total Hip Discharge Instructions Activity: The most important activity is to walk. You should try to take short walks a few times a day. You have no restrictions on movement or positioning, but do not try to force what you do. You will find some stiffness and weakness with hip flexion (lifting your knee). Do not try to strengthen this too early, continue to practice walking and stairs and this will come. - Outpatient physical therapy can be helpful to help return you to a normal gait and improve your flexibility and strength. This can start around 2 weeks. For some patients, it?s not necessary. Usually this is determined at the time of discharge or at the first post-operative visit. - You should wear the SHELLY hose on both legs for 2 weeks. Dressing: Keep the surgical dressing in place for at least one week. After the first week it may be removed and replace with light gauze and tape or nothing. It may get wet after 3 days but avoid soaking the dressing. If it gets wet, just lightly pat dry. It is important to always keep some gauze between skin folds, especially when you are sitting. Spend some time with the wound exposed when you are lying flat as the incision does wrinkle onto itself. Medications: - You should take Tylenol and anti-inflammatory Celebrex as your primary pain control medications. If the Celebrex is too expensive or not covered, please call the office for another alternative (Advil/Ibuprofen or Naproxen/Aleve) - You have been prescribed a stronger pain medication Oxycodone for breakthrough pain, take as needed as prescribed. - You have also been prescribed a stomach acid reduction agent Pantoprozole to help reduce stomach acid and reflux. - You should continue with Aspirin 325 mg daily for DVT prevention unless instructed otherwise. - If you have constipation you should take Colace (which has been prescribed) or Miralax (which is available [id number]). It takes most people 3-4 days to have a bowel movement. Follow-up: 2 weeks If you have any acute concerns or questions, please do not hesitate to contact the office at [phone]. You may contact Dr. Oviedo with any questions after hours through the hospital at [phone] or on his cell phone at [phone]. Stand Alone Forms: Anesthesia Discharge Inst., Sona Childers (U) Referrals: Chris Oviedo MD [ [facility] STAFF PHYSICIAN] - Equipment/Supplies: Walker Activity:: Elevate Remove Dressings/Wound Care:: Do Not Remove Shower/Bathe:: Cover Diet:: As Tolerated Discharge Orders Discharge Orders: Discharge Order (Routine); Ordered 06/28/22 Ordered By: Chris Oviedo DS: Summary Time Spent with Patient providing and/or coordinating discharge services: Less than 30 minutes Status at Discharge Functional status at discharge: uses cane/walker Overall status at discharge: patient is progressing back to baseline Mental Status: mental status grossly normal Speech and Movement: speech and movement normal Mood: congruent mood Affect: normal affect Exam Psych Mental Status: mental status grossly normal Speech and Movement: speech and movement normal Mood: congruent mood Affect: normal affect DS: Data Vitals/I&O Vitals and I&O: Intake & Output 06/27/22 06/27/22 06/28/22 11:59 23:59 11:59 Weight 135 lb 0.001 oz PFSH All Active Problems (Updated 06/28/22 @ 12:08 by Hansa Pandya RN) Hyperlipidemia (Acute) Chronic cough (Acute) Adenocarcinoma of left breast (Acute ~12/2020) s/p lumpectomy and SLN bx s/p Radiation on Hormone therapy Lumbar back pain with radiculopathy affecting lower extremity (Acute) Diverticulosis of colon (Acute) Chronic rhinitis (Acute) Osteoporosis (Chronic) 2020-positive DEXA scan, patient managing nonpharmacologically Right inguinal pain (Acute) Essential hypertension (Acute) Osteoarthritis of right hip (Acute) Osteoarthritis of left hip (Acute) History of shingles (Acute) Medical History (Updated 06/28/22 @ 12:08 by Hansa Pandya RN) Atrial fibrillation GERD (gastroesophageal reflux disease) History of pulmonary embolus (PE) Paroxysmal SVT (supraventricular tachycardia) Prolapse of female pelvic organs Cystocele and uterine prolapse Pulmonary embolism (2013) Surgical History Normal colonoscopy (~02/2021) S/P appendectomy S/P bunionectomy Right S/P lumpectomy of breast Left S/P tonsillectomy Family History Mother , age 78 Cancer Unknown type Hypertension Father Heart disease Hypertension Sister , age 76 Asthma Breast cancer Hypertension Lung cancer Sister , age 70 Colon cancer Heart disease Lung disease Brother , age 76 Lung cancer Hypertension Heart disease Son Prostate cancer Son No problems noted. Daughter No problems noted. Daughter No problems noted. Maternal Grandfather No problems noted. Maternal Grandmother TB (pulmonary tuberculosis) Paternal Grandfather No problems noted. Paternal Grandmother No problems noted. Social History Smoking/Tobacco Use Status: Never Second Hand Exposure: Yes Smoking risk assessment performed?: Yes Alcohol Intake: current Alcohol Intake frequency: holidays/special occasions only Alcohol type: beer, wine and hard liquor Drug use: Daily Substance use type: marijuana Details: alcohol: t-14. Marijuana: today, couple of hits between 7-8. Caregiver/Support person: No Household members: none Housing: house Do you need help understanding health information?: Rarely Pets and animals: No Sexually active: No Do you think of yourself as: straight/heterosexual Current gender identity: female What is your relationship status?: How often do you talk on the phone with friends or family?: three or more times per week How often do you get together with friends or relatives?: decline to answer How often do you attend catholic or scientology services?: decline to answer Do you belong to any clubs or organized social groups?: yes Panel score (0-1 are the most socially isolated patients): 2 What type of physical activity do you participate in: walking and other Details: stretching Duration: < 15 minutes/day Frequency: daily Loni/Scientologist: Anglican Special loni needs: No Seatbelt use: always Helmet use: No Drive intox or ride w/intox driver trainer: No Do you feel safe at home: Yes Additional Social history: unable to assess privately
[2022-06-28] MEDS: Acetaminophen 500 MG TAB 1000 MG PO (10:09)
[2022-06-28] MEDS: Celecoxib 200 MG CAP 400 MG PO (10:10)
[2022-06-28] MEDS: Lactated Ringers 1,000 ML 80 ML IV (10:40)
--- NOTE | 2022-06-28 11:13 | W.ANESPRE ---
General Info Date of Service Date Performed: 06/28/22 Height: 5 ft 2 in Weight: 57.2 kg Body Mass Index (BMI): 23.1 Surgical Procedure: Operation Date: 06/28/22 12:50 Proposed Procedure Side Surgeon p Hip Total Hip Anterior Right Chris Oviedo MD Meds Allergies and Home Medications Allergies Allergy/AdvReac Type Severity Reaction Status Date / Time Penicillins Allergy Mild Skin Rash Verified 06/28/22 09:36 Home Medication Medication Instructions Recorded multivitamin with iron 1 ea PO DAILY 07/05/13 aspirin 325 mg tablet 325 mg PO DAILY 03/17/14 calcium-magnesium 750 mg-465 mg 1 tab PO DAILY 02/23/20 tablet diltiazem HCl 120 mg 120 mg PO QAM #90 caps 11/09/21 capsule,extended release 24 hr valerian root 500 mg capsule 500 mg PO DAILY 11/16/21 hydrochlorothiazide 12.5 mg tablet 12.5 mg PO QAM #90 tabs 01/17/22 losartan 50 mg tablet 50 mg PO DAILY #90 tabs 02/02/22 acetaminophen 500 mg tablet 500 mg PO Q6H PRN pain #60 tabs 06/28/22 celecoxib 200 mg capsule (Celebrex) 200 mg PO BID #30 caps 06/28/22 docusate sodium 100 mg capsule 100 mg PO BID #30 caps 06/28/22 (Colace) oxycodone 5 mg tablet 5 mg PO Q6H PRN severe 06/28/22 post-operative pain #12 tabs pantoprazole 40 mg tablet,delayed 40 mg PO DAILY 30 days #30 tabs 06/28/22 release Current Visit Medications: Current Medications Generic Name Dose Route Start Last Admin Trade Name Freq PRN Reason Stop Dose Admin Acetaminophen 1,000 mg 06/28/22 06:00 06/28/22 10:09 Acetaminophen 500 Mg Tab PO 06/28/22 16:00 1,000 mg PREOP JAIR Administration Acetaminophen 1,000 mg 06/28/22 14:00 Acetaminophen 500 Mg Tab PO TID JAIR Aspirin 81 mg 06/28/22 20:00 Aspirin E.C. 81 Mg Tabec PO BID JAIR Celecoxib 400 mg 06/28/22 06:00 06/28/22 10:10 Celecoxib 200 Mg Cap PO 06/28/22 16:00 400 mg PREOP JAIR Administration Celecoxib 200 mg 06/28/22 20:00 Celecoxib 200 Mg Cap PO BID JAIR Docusate Sodium 100 mg 06/28/22 07:31 Docusate Sodium 100 Mg Cap PO BID PRN PRN Constipation Hydromorphone HCl 0.5 mg 06/28/22 07:31 Hydromorphone 2 Mg/Ml Syr IVP Q2H PRN PRN Tranexamic Acid 1,000 mg/ 60 mls @ 360 mls/hr 06/28/22 06:00 Sodium Chloride IV 06/28/22 16:00 PREOP [facility] Ringer's Solution 1,000 mls @ 80 mls/hr 06/28/22 06:00 06/28/22 10:40 IV 07/27/22 23:59 80 mls/hr INFUSION [facility] Administration Cefazolin Sodium/Dextrose 2 gm in 50 mls @ 100 mls/hr 06/28/22 06:00 Ancef Duplex IVPB 07/27/22 23:59 PREOP JAIR Cefazolin Sodium/Dextrose 1 gm in 50 mls @ 100 mls/hr 06/28/22 08:00 Ancef Duplex IVPB 06/29/22 00:29 Q8H [facility] IV Miscellaneous Supplies 1 each 06/28/22 06:00 Iv Access IV 07/27/22 23:59 DIRECTED [facility] Ondansetron HCl 4 mg 06/28/22 07:31 Ondansetron 4 Mg/2 Ml Vial IVP Q6H PRN PRN Nausea Oxycodone HCl 0 mg 06/28/22 07:31 Oxycodone 5 Mg Tab PO Q3H PRN PRN Pain Pantoprazole Sodium 40 mg 06/29/22 07:30 Pantoprazole 40 Mg Tabcr PO DAILY@0730 [facility] Polyethylene Glycol 17 gm 06/28/22 07:31 Polyethylene Glycol 3350 17 Gm Packet PO BID PRN PRN Constipation Sodium Chloride 0 ml 06/28/22 06:00 Normal Saline Flush 10 Ml Syr IV 07/27/22 23:59 PRN PRN Sodium Chloride 0 ml 06/28/22 06:00 Normal Saline 10 Ml Vial IJ 07/27/22 23:59 DIRECTED PRN Sterile Water 0 ml 06/28/22 06:00 Water,Injection,Sterile 10 Ml Vial IJ 07/27/22 23:59 DIRECTED PRN PFSH Active Problems Active Problems: Problem Status Onset Code History of shingles Z86.19 Chronic cough R05 Adenocarcinoma of left breast ~12/2020 C50.912 Diverticulosis of colon K57.30 Hyperlipidemia E78.5 Lumbar back pain with radiculopathy affecting lower extremity M54.16 Osteoarthritis of left hip M16.12 Osteoarthritis of right hip M16.11 Essential hypertension I10 Right inguinal pain R10.31 Osteoporosis M81.0 Chronic rhinitis J31.0 Medical History Medical History (Updated 06/28/22 @ 12:08 by Hansa Pandya RN) Atrial fibrillation GERD (gastroesophageal reflux disease) History of pulmonary embolus (PE) Paroxysmal SVT (supraventricular tachycardia) Prolapse of female pelvic organs Cystocele and uterine prolapse Pulmonary embolism (2013) Medical History Comments:: Daily Marijauna use Surgical History Surgical History Normal colonoscopy (~02/2021) S/P appendectomy S/P bunionectomy Right S/P lumpectomy of breast Left S/P tonsillectomy Tobacco Smoking/Tobacco Use Status: Never Passive smoking exposure: Yes Second hand exposure: Yes Alcohol Alcohol Intake: current Alcohol intake frequency: holidays/special occasions only Alcohol type: beer, wine and hard liquor Substance Use Substance use: Daily Substance use type: marijuana Details: alcohol: t-14. Marijuana: today, couple of hits between 7-8. Vital Signs and Lab Results Vital Signs Most Recent Vital Signs in EMR: Most Recent Vital Signs Temp Pulse Resp BP Pulse Ox 37.0 C 61 18 130/77 97 06/28/22 10:00 06/28/22 10:00 06/28/22 10:00 06/28/22 10:00 06/28/22 10:00 Lab Results Blood Type / Crossmatch: No Data to Display Complete Blood Count: White Blood Count 7.95 10^3/uL (4.4-10.8) 06/19/22 13:20 Red Blood Count 4.22 10^6/uL (3.93-5.22) 06/19/22 13:20 Hemoglobin 14.1 g/dL (11.2-15.7) 06/19/22 13:20 Hematocrit 40.1 % (36.0-46.0) 06/19/22 13:20 Platelet Count 232 10^3/uL (130-400) 06/19/22 13:20 Complete Metabolic Panel: Sodium 137 mmol/L (136-145) 06/19/22 13:20 Potassium 4.1 mmol/L (3.5-5.1) 06/19/22 13:20 Chloride 101 mmol/L (98-107) 06/19/22 13:20 Carbon Dioxide 25.5 mmol/L (21.0-32.0) 06/19/22 13:20 BUN 18 mg/dL (7-18) 06/19/22 13:20 Creatinine 0.7 mg/dL (0.55-1.02) 06/19/22 13:20 Est GFR (CKD-EPI 2020) 85.76 (mL/min/1.73m2) 06/19/22 13:20 Calcium 9.7 mg/dL (8.5-10.1) 06/19/22 13:20 Glucose 97 mg/dL (74-106) 06/19/22 13:20 Liver Function Panel: No Data to Display Coagulation Panel: No Data to Display Cardiac Panel: No Data to Display Arterial Blood Gas: No Data to Display Venous Blood Gas: No Data to Display Pancreas Panel: No Data to Display Thyroid Panel: No Data to Display Infectious Disease: No Data to Display Blood Cultures: No Data to Display Toxicology Panel: No Data to Display Imaging and Studies Imaging and Studies Study information below may be from another EMR and interpreted by another provider. Please see original notes in EMR for more complete details. Echocardiogram Summary: 2014: FINDINGS: LEFT VENTRICLE/LVEF: Normal size and systolic/diastolic function. Estimated LVEF 70%. RIGHT VENTRICLE: Normal size and systolic function. AORTIC VALVE: Trileaflet, opens well with trace regurgitation. MITRAL VALVE: Anatomically normal with trace regurgitation. TRICUSPID VALVE: Opens well with trace regurgitation. RSV/PA/RIGHT ATRIAL PRESSURE: RSV pressure normal. PULMONIC VALVE: Normal. ATRIA: Normal biatrial size. DIASTOLIC INDICES: Normal. GREAT VESSELS: Normal. PERICARDIUM: No effusion. Anesthesia Assessment and Plan Anesthesia History Personal History: No History of Anesthesia Complications Family History: No Family History of Anesthesia Complications Exercise Tolerance Exercise Tolerance: Metabolic Equivalents>4 Pertinent Negatives Pertinent Negatives: No Symptoms of GERD and No Major Pulmonary Symptoms or Complaints Cardiac & Pulmonary Exam Cardiac Exam: Other Pulmonary Exam: Clear Bilateral Breath Sounds Implantable Cardiac Device Does patient have a Pacemaker or an ICD?: No Airway Exam Known Difficult Airway: No Mallampati Class: 2 Mouth Opening: Normal (> 3cm) Thyromental Distance: Greater than 3 cm Neck Range of Motion: Full ROM Neck Circumference: Normal Teeth Condition: Normal Dentition ASA Classification ASA Score: ASA 3 Emergency Case?: No NPO Status NPO Status: NPO Clears >2 hours, Solids >8 hours Anesthesia Plan Resuscitation Status: Full Code Anesthesia Technique: General Anesthesia Airway Planned: LMA Monitors Used: Standard Monitors Preoperative Comments:: Known active infection of shingles. ER evaluation note reviewed. Surgeon and Infectious disease discussed case, and plan to proceed with standard precautions.
--- NOTE | 2022-06-28 12:15 | DI.RAD_ITS ---
Exam(s) XR HIP RT IN OR EXAM: XR HIP RT IN OR CLINICAL HISTORY: OA RIGHT HIP TECHNIQUE: 2D and realtime digital imaging was performed. CONTRAST MATERIAL: Refer to procedure report. COMPARISON: CR XR PELVIS AP from 06/19/2022 FINDINGS: Fluoroscopy was provided for Dr. Oviedo during the performance of a right hip arthroplasty. Willie ortega refer to the procedure report for complete details. Ka,r=2.3 mGy IMPRESSION: RADIATION DOSE DELIVERED:
[2022-06-28] MEDS: ceFAZolin 2 GM/50 ML BAG IVPB (12:48)
--- NOTE | 2022-06-28 13:25 | FEMHEA_PTH ---
PATIENT: Leti [place] LOC: [facility] U#:[id number] AGE/SX: 81/F ROOM: RE06/28/[address]: Chris Oviedo MD : [id number] BED: DIS: 06/28/2022 SPEC #: [id number] RECD: 06/28/22 18:25 STATUS: JESSICA REQ #: [id number] SONYA: 06/28/22 13:[address]: Chris Oviedo DEPT: Surgical Specimen RECD BY: Leyla Alston ENTERED: 06/28/22 18:28 SP TYPE: Femo Head OTHR DR: Ginger Meng, [facility] Tissues: 1 - FEMORAL HEAD Procedures: GROSS AND MICRO LEVEL 3 DECALCIFICATION Comments: [id number]
[2022-06-28] MEDS: Normal Saline 10 ML VIAL IJ (15:02)
[2022-06-28] MEDS: HYDROmorphone 2 MG/ML SYR IVP (15:02)
--- NOTE | 2022-06-28 15:35 | W.ANESPOSTOP ---
Postoperative Evaluation Date, Time and Location Date Performed: 06/28/22 Time Performed: 15:35 Patient Location: PACU Vital Signs Most Recent Imported Vital Signs: Most Recent Vital Signs Temp Pulse Resp BP Pulse Ox 36.7 C 54 L 12 120/46 L 98 06/28/22 15:25 06/28/22 15:25 06/28/22 15:25 06/28/22 15:25 06/28/22 15:25 Pain Score Most Recent Pain Score: Most Recent Pain Score Pain Level 3 06/28/22 15:25 Assessment Mental Status: Awake (Alert & Oriented to Patient Baseline) Airway and Respiratory Function: Patent airway with normal (patient baseline) respiratory exam Cardiovascular Function: Hemodynamically Stable Hydration Status: Adequately Hydrated Nausea & Vomiting: No Nausea or Vomiting Pain: Pain is tolerable per patient Peripheral Nerve Block: Patient did not receive a nerve block
--- NOTE | 2022-06-28 16:29 | IN_ITS ---
PT Notes Visit Reasons: right hip DJD Physical Therapy Day Surgery Initial Evaluation Date: 06/28/2022 Referring Doctor: ANITA Turcios PT Orders: PT CONSULT: S/P Ortho Surgery Precautions: WBAT on R LE with AD. Patient Profile/Admitting Diagnosis: Leti is an 81-year-old female with degenerative joint disease of the right hip and is status post right anterior total hip arthroplasty on postoperative day 0. PMHX: Medical History?(Updated 06/19/22 @ 14:00 by Lilian Negro) Atrial fibrillation GERD (gastroesophageal reflux disease) Paroxysmal SVT (supraventricular tachycardia) Prolapse of female pelvic organs Cystocele and uterine prolapse Pulmonary embolism (2013) Surgical History?(Updated 06/19/22 @ 14:00 by Lilian Negro) Normal colonoscopy (~02/2021) S/P appendectomy S/P bunionectomy Right S/P lumpectomy of breast Left S/P tonsillectomy Social History/Home Situation: Lives alone in a private home with 3 steps to enter with a rail on one side. Daughter and son will take turns watching over their mother as she recovers from home. Patient is modified independent with all mobility ADL performance using her 4-wheeled walker. Equipment Owned/DME: [facility], standard walker Subjective: Reports moderate pain in her R hip with movement. Denies headache, chest pain, and lightheadedness throughout session. Objective: General Observation: Supine in stretcher. Mepilex Ag over surgical incision. TEDS in B legs. Mental Status: A and O x 4 Pain: 4-5/10 in the R hip with weight bearing ROM: Right Lower Extremity: Hip flexion WFL. Hip abduction WFL. Knee flexion WFL. Ankle dorsiflexion WFL. Ankle plantarflexion WFL. Left Lower Extremity: Hip flexion WFL. Hip abduction WFL. Knee flexion WFL. Ankle dorsiflexion WFL. Ankle plantarflexion WFL. Strength: Right Lower Extremity: Hip flexors 4/5. Hip abductors 4/5. Knee flexors 5/5. Knee extensors 4/5. Ankle dorsiflexors 5/5. Ankle plantarflexors 5/5. Left Lower Extremity:Hip flexors 5/5. Hip abductors 5/5. Knee flexors 5/5. Knee extensors 5/5. Ankle dorsiflexors 5/5. Ankle plantarflexors 5/5. Sensation: Intact as to pain and light pressure in bilateral lower extremities Bed Mobility/Transfers: Supine to sit standby assist Sit to stand contact-guard assist Stand to sit standby assist Bed to chair standby assist Gait: 15 feet + 120 feet using front wheeled walker with step to gait pattern requiring standby assist. Feels that her R foot is higher than the L. No report of increased pain in the R hip. Cues given for more erect posture. Appears to be favoring the R LE. Balance: Static Sitting: Normal Dynamic Sitting: Normal Static Standing: Fair Dynamic Standing: Fair Special Tests: Mobility Limitations Standardized Measure [facility] AM-PAC 6 clicks Basic Mobility Inpatient Short Form: Raw Score: 23 CMS Score: 11% deficit Informed Consent/Education: Patient instructed in purpose of PT consult. Education and training on initial set of exercises that can be done at home have been completed with patient. Assessment: Leti requires use of a front-wheeled walker for all mobility ADL performance to maximize independence and reduce fall risk. Patient presents with clinical signs and symptoms consistent with current/admitting diagnoses that have resulted to mobility limitations, gait instability, generalized weakness, and impairment of motor control as demonstrated by the following impairment level findings: 1. Decreased strength to right hip major muscle groups 2. Impaired standing balance Impairments are contributing to the following functional limitations: 1. Inability to safely ambulate without assistive device 2. Increase completion time for mobility ADL performance 3. Increased fall risk Patient is assessed as a 35641 moderate complexity based on the following: History: 81-year-old female with impairment level findings, functional limitations, and past medical history as indicated above Examination: Demonstrable impairment in strength, balance, and mobility level with underlying impairments and functional limitations as documented above Presentation: Evolving Decision Makin moderate complexity Goals: N/A. PT evaluation and 1-2 treatment sessions only for functional mobility training using recommended AD and for HEP instruction. Plan of Care/Treatment Plan: N/A. PT evaluation and 1-2 treatment session only for functional mobility training using recommended AD and for HEP instruction. DISCHARGE RECOMMENDATIONS: [] Home with no services [] [] Home with services [specify] [X] Home with outpatient PT. Home when medically cleared by orthopedic surgeon. Will benefit from outpatient PT services in order to optimize functional mobility outcomes and facilitate independent community ambulation using 4 wheeled walker per prior level of function. [] SNF for continued rehabilitation [] [] [facility] [] [] SNF versus LTC based on ability to participate and progress [] TREATMENT CODE/TIME: 84323 x 20 minutes, 49350 x 20 minutes beginning at 16:29 PM Thank you for the opportunity to participate in the care of this patient. Safia Jose PT, DPT, CLT [facility] [place], [place]
--- NOTE | 2022-06-28 16:46 | ROE_ITS ---
Date of service: 06/28/22 Time of Service: 14:00 Operative Note Operative Note DATE OF PROCEDURE: 06/28/22 PRE-OP DIAGNOSIS: Right Hip Osteoarthritis POST-OP DIAGNOSIS: same PROCEDURE: Right Anterior Total Hip Arthroplasty with Intraoperative Navigation SURGEON: Chris Oviedo MEMBER OF THE LEGISLATIVE COUNCIL: Lilian Negro ANESTHESIA TYPE: Spinal Refer to Anesthesia Record ESTIMATED BLOOD LOSS: 200 PATHOLOGY: none sent TOURNIQUET TIME: 0 COMPLICATIONS: None Patient was transported to: PACU Patient's condition: stable Implants: 1. Depuy Sidell Acetabular Component, 52mm 2. Depuy Acetabular Liner, [id number] 3. Depuy Corail Short Neck Collared Femoral Stem, Size 13 4. Depuy Altrx Ceramic Femoral Head, Size 36+5mm Indications: I have seen [NAME] in clinic for symptoms of hip arthritis, confirmed with radiographic findings. [NAME] has exhausted nonoperative methods and was having significant limitations in daily function and desired better function and less pain. I discussed the technical details of a hip replacement. I explained the risks of the procedure to include, but not limited to, bleeding, infection, pain, stiffness, fracture, damage to nerves and vessels, damage to muscles and tendons, loosening, instability, leg length inequality, need for repeat procedure, blood clot and cardiopulmonary demise. Despite these risks, [NAME] elected to proceed. Findings: There was significant signs of arthritis throughout the hip. The femoral head had delaminated cartilage and some cystic regional climate change analyst the superior aspect and was sent to pathology. Procedure Description: Leti was greeted in the preoperative holding area where the correct side was identified and marked. The consent was reviewed with the patient and signed. The history and physical was updated. All questions were answered. She was taken back to the operating room. A general anesthetic was administered. The feet were wrapped with cast padding and Coban and then placed into the boot liners and then into the boots. Care was taken to protect the skin and make sure the heels were fully down and the boots were stable. The patient was then positioned onto the HANA table. Both legs were held in a neutral position. SCDs were applied. The patient was then slid down onto a peroneal post. Prophylactic antibiotics in the form of Cefazolin were administered. 1g of Tranxemic Acid was given intravenously within 30 minutes of incision. The right leg was then prepped with Chloraprep and draped in a standard fashion. A second prep with Chloraprep was performed prior to pl acement of a shower-curtain type drape with Iodine impregnated skin protection. A timeout to confirm correct identity, side and site, procedure, allergies, anesthesia, and medical concerns was performed. An obliquely oriented incision was made starting lateral to the ASIS and running distal over the Tensor Fascia Cuca (TFL) muscle belly toward the fibular head, approximately 10cm. The skin and soft tissue was dissected sharply, through Migel?s fascia, and to the fascia of the TFL. With the fascia and superior border of the IT band identified, the fascia was incised with a new knife just a severiano any perforators from the IT band. The TFL muscle belly was bluntly dissected away from the fascia and moved laterally. The fat between TFL and rectus was identified to ensure the dissection was not within the TFL. Blunt dissection created space between abductors and the capsule and retractor was placed over the lateral femoral neck. The fibers of the rectus femoris tendon were identified and these were freed from the anterior capsule. A second cobra retractor was placed around the medial femoral neck. The TFL was further retracted laterally to show the deep fascia. Careful dissection through this layer identified three main crossing vessels of the lateral femoral circumflex. These were cauterized in multiple locations and then cut without any noticeable bleeding. The TFL was further released bluntly from the deep fascia to expose anterior hip capsule and fat The Elliot orthopaedic retractor was then placed beneath the TFL and against sartorius and medial soft tissues to protect and retract the soft tissues. A T-capsulotomy was then performed starting at the superior lateral acetabulum and moving distally to the intertrochanteric ridge. These capsular flaps were tagged with a No. 1 Ethibond and elevated from within. The capsular flaps were released to the shoulder of the lateral neck and to the lesser trochanter to give excellent visualization of the proximal femur. A neck osteotomy was performed using an oscillating saw based on preoperative templates. This cut started in the shoulder and of the lateral neck and exited medially. The saw was at all times directed medially to avoid injury to the greater trochanter. Gross traction was applied to the leg and the osteotomy opened. The femoral head was removed with a corkscrew, making sure to protect the TFL on its exit. There was delaminated cartilage of the femoral head and soft bone and some cystic change. Traction was released after head removal. This was measured on the back table to determine the starting reamer size. Portions of the rectus obscuring visualization were minimally elevated off the superior acetabulum. An anterior retractor was placed over the anterior wall between capsule and labrum and attached to the Gripper retraction system. The femur was rotated to 90 degrees and medial capsule was fully released until the lesser trochanter was palpable and visible; the femur was returned to 30 degrees. A posterior retractor was placed similarly between capsule and labrum. This provided excellent visualization. The contents of the cotyloid fossa were removed with electrocautery and the labrum was removed with a knife. There was a notable floor osteophyte. There was significant chondromalacia of the superior acetabulum. Acetabular reaming began with a 46mm reamer. This first reaming was directed anterior to posterior and medial to get down to the true floor. This was inspected and reamed until the true floor was reached. The anterior retractor was then released and entry and exit was provided by traction on the capsular flaps. I then reamed sequentially up to a 52mm reamer where good fit was obtained. The larger reamers were oriented based on anatomical reference of the anterior and lateral munoz to ensure proper abduction and anteversion. Positioning and size was confirmed with the fluoroscopy. A 52mm Depuy Sidell acetabular component was selected. The acetabulum was reamed around the periphery with the selected acetabular size to prevent a rim fit. The deep tissues were irrigated. The acetabular component was then impacted in a position of about 40-45 degrees of abduction and 15-20 degrees of anteversion, using the patient?s anatomy as the ultimate landmark. Fluoroscopy was used to confirm this. There was excellent critical care nurse specialist of the acetabular component and the inserting handle was removed. A primary acetabular screw was placed into the ilium by drilling through one of the holes in the acetabular component. This was measured and an approrpriately sized screw was placed with excellent purchase. It was checked not to be proud. A second screw was placed in a similar fashion. The acetabular liner, Depuy [id number] polyethylene liner, was inserted and lined up with the tines of the acetabular component. There was no soft tissue interposition. The liner was then impacted into position and confirmed to be well-seated. A portion of the ron-articular cocktail was then injected around the acetabulum into the capsule and periosteum. This cocktail consisted of 123mg of Ropivacaine, 0.25mg of Epinephrine, 0.04mg of Clonidine, and 15mg of Ketorolac, diluted to 50cc. The leg was rotated to 120 degrees. Any remaining medial capsule was released until the lesser trochanter was easily palpable. A retractor was placed m edially. The lateral capsule was further released into the shoulder to allow access to the greater trochanter. A Esqueda retractor was placed over the greater trochanter which allowed the trochanter to flip in front of the capsule for excellent exposure. The leg was brought down into maximal extension and 20 degrees of adduction while ensuring there was no impingement on the acetabulum. Any remnant capsule within the trochanter was released. Piriformis and obturator externis were identified and protected. There was excellent access to the proximal femur. The lateral neck remnant was removed with a rongeur. A blunt canal probe was used to identify the canal and trajectory for later broaching. A box osteotome initiated the broach course. A small curved rasp and a curved curette were used to work laterally. Broaching then began with a size 8 Corail broach. This was inserted manually around the trochanter and into the canal before mallet blows. The broach was seated to the neck cut level based on the neck cut and the preoperative template. Sequential broaching was continued with the wikifoliocise pneumatic broaching device until a tight fit was obtained with good rotational control of the femur. A trial standard neck was inserted along with a +1.5 trial head. The leg was brought out of extension and adduction and then reduced with traction and internal rotation. The leg was stable anteriorly in a position of 30 degrees of extension and 90 degrees of external rotation. Fluoroscopy was used to ensure there was no fracture and the stem was seated well. Leg lengths were checked with an AP pelvis and pelvic reference points. Netflix navigation system was used to confirm appropriate positioning and leg length and offset. This slightlly over-crrected the leg length and offset but this would be improved with a short neck +5 head. Once content with the desired offset and leg lengths, the leg was brought back into extension, external rotation and adduction. The periosteum and surrounding tissue was injected with remaining portion of the ron-articular cocktail. The proximal femur was irrigated as well as the deep tissues. The Depuy Corail Short Neck collared stem, size 13, was then manually inserted into the proximal femur making sure to control rotation. It was then malleted into position with light blows, giving breaks to allow bone expansion a nd decrease risk of fracture. The selected Depuy Altrx Ceramic Head, size 36+5mm, was then placed onto the clean and dry trunnion and secured with impaction onto the tapered fit. The leg was brought back out of extension and adduction and reduced with traction and internal rotation. Stability was confirmed with no shuck at 90 degrees of external rotation and 30 degrees of extension. No impingement through range of motion arc. Final x-ray images were obtained with fluoroscopy to confirm adequate positioning and no intraoperative fracture. The deep tissues were thoroughly irrigated with Surgiphor, betadine solution. This was allowed to sit in the wound for 3 minutes before being thoroughly irrigated out with normal saline. The capsule was then reapproximated with the previously placed Ethibond sutures. The TFL fascia was finally closed with a No. 2 Stratafix, barbed suture. Deep tissues were then reapproximated with 0 Vicryl and a running 2-0 Vicryl. The skin was closed with a running 4-0 Monocryl in a subcuticular fashion. This was reinforced with skin glue. A Mepilex silver dressing was applied. At the end of the case, all counts were correct. Leti was transferred to the hospital bed without difficulty and suffering no apparent complication. Leti has a good prognosis. Physical therapy will start today and without restrictions, weight-bearing as tolerated. Aspirin 325mg daily (her home dosing) will be used for DVT prophylaxis.
== END 2022-06-28 18:03 | disposition home or self-care (01) ==
PROVIDERS: PCP Nurse Practitioner Family; Visit Provider Student in an Organized Health Care Education/Training Program
PROC: (CPT 27130; principal; 2022-06-28 12:30)
DX: M16.11 Unilateral primary osteoarthritis, right hip (principal); I48.91 Unspecified atrial fibrillation; K21.9 Gastro-esophageal reflux disease without esophagitis; E78.5 Hyperlipidemia, unspecified
CPT/HCPCS: 20985; 27130; C1776; 88305; 97162; 97530; 73501; 88304; 88311; J0360; J0690; J1100; J1170; J2405

== ENCOUNTER 2022-07-10 10:42 | Outpatient (CLI) | payer MEDICARE, OTHER, SELFPAY ==
--- NOTE | 2022-07-10 10:15 | DI.RAD_ITS ---
Exam(s) XR HIP RT COMPLETE AP PELVIS EXAM: XR HIP RT COMPLETE AP PELVIS INDICATION: 1st post op R FIDELINA. COMPARISON: CR XR PELVIS AP from 06/19/2022 XA XR HIP RT IN OR from 06/28/2022 TECHNIQUE: 2D digital imaging was performed. Three views. FINDINGS: There has been no change in the alignment of the right total hip prosthesis. There are no suspicious surrounding bony lucencies. There are mild degenerative changes of the left hip and bilateral SI erma ints.. DATA REPOSITORY: RADIATION DOSE DELIVERED:
== END 2022-07-10 10:43 | disposition home or self-care (01) ==
LOC: DIORS 10:43
PROVIDERS: PCP Nurse Practitioner Family; Referring Provider Nurse Practitioner Family; Visit Provider Student in an Organized Health Care Education/Training Program
DX: Z96.641 Presence of right artificial hip joint (principal); Z47.1 Aftercare following joint replacement surgery
CPT/HCPCS: 73502

== ENCOUNTER → 2022-08-03 02:07 | Outpatient (CLI) | payer MEDICARE, OTHER, SELFPAY ==
--- NOTE | 2022-08-03 10:28 | DI.RAD_ITS ---
Exam(s) XR TIB/FIB LT EXAM: XR TIB/FIB LT CLINICAL HISTORY: Tibia pain,BILAT LEG PAIN, M79.605,M79.604. TECHNIQUE: 2D digital imaging was performed of the left tibia and fibula. Two images were obtained. AP and lateral views were obtained. COMPARISON: No exams were available for comparison FINDINGS: BONES: No acute fracture is present. No bony destructive lesion is seen. Visualized portion of knee a nd ankle joints are unremarkable. SOFT TISSUE: Normal. IMPRESSION: Unremarkable radiographs of the left tibia and fibula. DATA REPOSITORY: RADIATION DOSE DELIVERED:
--- NOTE | 2022-08-03 10:28 | DI.RAD_ITS ---
Exam(s) XR TIB/FIB RT EXAM: XR TIB/FIB RT CLINICAL HISTORY: Tibia pain,PAIN IN BILAT LEGS, M79.605,M79.604. TECHNIQUE: 2D digital imaging was performed of the right tibia and fibula. Two images were obtained. AP and lateral views were obtained. COMPARISON: No exams were available for comparison FINDINGS: BONES: No acute fracture is present. No bony destructive lesion is seen. Visualized portion of knee a nd ankle joints are unremarkable. SOFT TISSUE: Normal. IMPRESSION: Unremarkable radiographs of the right tibia and fibula. DATA REPOSITORY: RADIATION DOSE DELIVERED:
== END ==
PROVIDERS: PCP Nurse Practitioner Family; Visit Provider Nurse Practitioner Family
DX: M79.605 Pain in left leg (principal); M79.604 Pain in right leg
CPT/HCPCS: 73590

== ENCOUNTER → 2022-08-07 13:25 | Outpatient (BNVA) | payer MEDICARE, OTHER, SELFPAY | PROVIDERS: PCP Nurse Practitioner Family; Referring Provider Nurse Practitioner Family; Visit Provider Student in an Organized Health Care Education/Training Program | DX: Z47.1 Aftercare following joint replacement surgery (principal); Z96.641 Presence of right artificial hip joint; M70.62 Trochanteric bursitis, left hip | CPT/HCPCS: 20610; J1040 ==

== ENCOUNTER → 2022-08-10 10:40 | Outpatient (BNVA) | payer MEDICARE, OTHER, SELFPAY | PROVIDERS: PCP Nurse Practitioner Family; Referring Provider Nurse Practitioner Family; Visit Provider Nurse Practitioner Adult Health | DX: F12.90 Cannabis use, unspecified, uncomplicated (principal); I10 Essential (primary) hypertension; R41.3 Other amnesia | CPT/HCPCS: 99204; 99214 ==

== ENCOUNTER 2022-09-07 08:49 | Outpatient (CLI) | payer MEDICARE, OTHER, SELFPAY ==
--- NOTE | 2022-09-07 07:00 | DI.RAD_ITS ---
Exam(s) XR PAIN CLINIC LUMBAR SP 2V EXAM: XR PAIN CLINIC LUMBAR SP 2V CLINICAL HISTORY: Dx: Lumbar Radiculopathy TECHNIQUE: 2D and realtime digital imaging was performed. Radiologist not present. CONTRAST MATERIAL: None. COMPARISON: No exams were available for comparison FINDINGS: Fluoroscopy was provided for pain management therapy. Please refer to procedure report or details. Radiation Exposure Index: Ka,r=3.58 mGy IMPRESSION: As above. RADIATION DOSE DELIVERED:
[2022-09-07 09:19] VITALS: BP 133/70; PULSE 61; RESP 20; TEMP 36.9; O2SAT 100
--- NOTE | 2022-09-07 09:35 | PDOC.PAIN_ITS ---
Date of service: 09/07/22 Time of Service: 10:13 Pain Clinic Procedure Note Procedure Note Procedure Note: Lumbar Epidural Steroid Injection Procedure Note COMMENTS:She has had this procedure numerous times in the past. These typically give her 5-6 months of relief. Pre-procedure pain VAS was 8/10. Dx: Lumbosacral radiculopathy Leti Dallas has been referred to the [facility] for lumbar epidural steroid injection. The patient was greeted by the nurse who verified patients name and . Patient was then taken to the fluoroscopy suite. The patient was interviewed and the medial record reviewed. There were no medical, pharmacologic, radiographic, or other structural contraindications to attempting fluoroscopically guided lumbar epidural steroid injection. Risks and expected side effects as well as potential benefits of the procedure were reviewed and voiced concerns expressed. The patient consent form was signed and witnessed. Standard patient time-out procedure was performed. The patient was placed in the prone position on the fluoroscopy table and automated blood pressure cuff and pulse oximeter applied. The skin entry point for entering/approaching the epidural space at L5-S1 and marked. Following thorough chlorhexadine preparation of the skin and draping and 1% lidocaine infiltration of the skin entry point and subcutaneous tissues, a 18 gauge Touhy needle was placed under fluoroscopic guidance and with loss of resistance technique into the epidural space. Needle tip placement and depth were aided and confirmed by fluoroscopy. There was no paresthesia or return of blood or CSF through the needle. 1 cc's of Omnipaque 240 was injected with clear epidural spread confirmed with fluoroscopy. 80mg depomedrol was injected. There was not any unusual discomfort expressed by Leti Dallas. Patient's vital signs were stable throughout the procedure and were as recorded in nursing records. Follow up plans and appointments were discussed with patient. Post procedure instruction was given as documented in nursing records and having met discharge criteria and was discharged from the [facility]. COMMENTS: If this procedure is helpful, it can be completed up to 3 times per 12 months. Post-procedure pain VAS was 3/10. Kevin Jose DO, MPH [facility]-Pain Management [facility]
[2022-09-07] MEDS: Omnipaque 240 MG/ML 50 ML BTL IJ (09:54)
[2022-09-07] MEDS: methylPREDNISolone ACETATE 80 MG/ML VIAL IJ (09:55)
[2022-09-07 10:04] VITALS: BP 144/76; PULSE 61; RESP 12; O2SAT 100
== END 2022-09-07 08:50 | disposition home or self-care (01) ==
LOC: PC 08:49
PROVIDERS: PCP Nurse Practitioner Family; Visit Provider Preventive Medicine Occupational Medicine
DX: M54.17 Radiculopathy, lumbosacral region (principal); M54.50 Low back pain, unspecified
CPT/HCPCS: 62323; 72100; J1040; Q9967

== ENCOUNTER → 2022-09-18 13:06 | Outpatient (BNVA) | payer MEDICARE, OTHER, SELFPAY | PROVIDERS: PCP Nurse Practitioner Family; Referring Provider Nurse Practitioner Family; Visit Provider Student in an Organized Health Care Education/Training Program | DX: Z47.1 Aftercare following joint replacement surgery (principal); Z96.641 Presence of right artificial hip joint; M16.12 Unilateral primary osteoarthritis, left hip ==

== ENCOUNTER 2022-09-21 02:07 | Outpatient (CLI) | payer MEDICARE, SELFPAY ==
--- NOTE | 2022-09-21 08:00 | DI.RAD_ITS ---
Exam(s) RF JOINT INJECTION FLUORO GUID EXAM: RF JOINT INJECTION FLUORO GUID CLINICAL HISTORY: L HIP INJ UNDER FLUORO, LT HIP PAIN, M25.552. TECHNIQUE: Fluoroscopy was provided for the referring physician for guidance with performing pain cl inic injection procedure. COMPARISON: No exams were available for comparison FINDINGS: Please see procedure note for details. Fluoro time: 5 seconds RADIATION DOSE DELIVERED: Demarcusr=0.257 mGy
[2022-09-21] MEDS: Bupivacaine 0.5% Pres-Free 10 ML VIAL IJ (13:38)
[2022-09-21] MEDS: methylPREDNISolone ACETATE 80 MG/ML VIAL IM (13:38)
--- NOTE | 2022-09-21 15:25 | W.PROCNOTE ---
Date of service: 09/21/22 Time of Service: 14:30 Procedure Note Date of procedure: 09/21/22 Procedure: Left Hip Injection with Fluoroscopic Guidance Surgeon/Proceduralist/Physician: Chris Oviedo Procedure Diagnosis: Left Hip Osteoarthritis Procedure Indications: Leti has had persistent pain of the low back with arthritic change in the left hip. Noninvasive measures have been tried. To serve as both diagnostic and therapeutic, an injection under fluoroscopy was recommended. I had discussed the risks of the procedure and the patient elected to proceed. Procedure Description: Leti was greeted in the flouroscopy room. The correct side was identified and the consent was reviewed with the patient and signed. The patient was then placed in the supine position on the fluoroscopy table. The LEFT hip was then prepped with Chloraprep. The anterolateral injection starting point was identiifed by bony landmarks and fluoroscopy. The skin and soft tissue in the tract of the injection was anesthetized with 1% Lidocaine. A spinal needle was then inserted deep into the hip joint at the level of the lateral femoral neck under fluoroscopic guidance. A small amount of Omnipaque solution was injected to confirm intraarticular placement. Once confirmed, the hip was injected with 5cc of 0.5% Bupivicaine and 80mg of Depo-Medrol. A bandaid was placed on the injection site. The patient tolerated the procedure well.
== END 2022-09-21 02:27 ==
LOC: DI 02:07
PROVIDERS: PCP Nurse Practitioner Family; Visit Provider Student in an Organized Health Care Education/Training Program
DX: M25.552 Pain in left hip (principal)
CPT/HCPCS: 20610; 77002; J1040

== ENCOUNTER 2022-10-04 10:25 | Emergency (ER) | payer MEDICARE, SELFPAY ==
[2022-10-04 10:30] VITALS: BP 125/87; PULSE 89; RESP 16; TEMP 36.8; O2SAT 99
--- NOTE | 2022-10-04 11:04 | ED.GENADUL_ITS ---
Discharge Plan Disposition Patient Disposition: Home Condition: Improving Discharge Details Clinical Impression: Constipation, Hypokalemia Primary Care Provider: Ginger Meng ED Provider: Buddy Wild Home Meds and New Rx's Prescriptions: Continued aspirin 325 mg tablet 325 mg PO DAILY megestrol 400 mg/10 mL (10 mL) suspension 400 mg PO DAILY Qty: 1000 0RF Metamucil (with sugar) 3.4 gram/12 gram powder 1 tbsp PO DAILY Qty: 861 3RF cyclobenzaprine 10 mg tablet 10 mg PO TID PRN (Reason: muscle spasm) Qty: 90 0RF calcium-magnesium 750-465 mg tablet 1 tab PO DAILY letrozole 2.5 mg tablet 2.5 mg PO DAILY meloxicam 15 mg tablet 15 mg PO DAILY Qty: 30 1RF Rx Instructions: Take one tablet daily for inflammation and pain multivitamin with iron 1 EACH tablet 1 ea PO DAILY diltiazem HCl 120 mg capsule,extended release 24hr 120 mg PO QAM Qty: 90 3RF hydrochlorothiazide 12.5 mg tablet 12.5 mg PO QAM Qty: 90 4RF losartan 50 mg tablet 50 mg PO DAILY Qty: 90 3RF valerian root 500 mg Capsule 500 mg PO DAILY Hold Instructions: Resume on 07/13/22. Do not take valerian root for 2 weeks after surgery Discharge Instructions Instructions: Constipation (ED), Hypokalemia (ED) Additional Instructions: Work-up in the ER does not reveal any obvious emergent process. I do recommend plenty of fluids to avoid dehydration, increasing her fiber intake and using [id number]-osdknmh stool softener as directed for your constipation. Please watch for new or worsening symptoms and return to the ER for any concerns. Your potassium was low today, was orally replenished, I do recommend increasing your overall potassium intake via dietary measures over the next couple of days such as bananas, sweet potatoes, spinach, etc. I would like you to contact your primary care provider tomorrow to discuss your ER visit, ongoing symptoms, and need for outpatient reevaluation. You should have your potassium rechecked to be sure it is normalizing. Medical Decision Making This is an 81-year-old female who reports last couple of days having multiple small firm bowel movements, has not tried any fqsd-dyp-ihzkljq medication. Denies chronic constipation or abdominal pain, nausea, vomiting or black tarry stools or bright red blood in her stools. Clinically she appears well, nontoxic, abdomen is soft, nontender, normal bowel sounds. Rectal examination is unremarkable for tenderness, fecal impaction, etc. Plan to obtain routine s creening laboratory values and given low suspicion for acute abdomen will obtain plain film versus CT imaging. Will provide IV fluid and reassess Laboratory values and x-ray are unremarkable for emergent process. Potassium of 3.0. Plan to provide 40 p.o. potassium and obtain an EKG. There is a large quantity of stool present on x-ray. EKG reveals no evidence of changes consistent with hypokalemia. Discussed work-up with patient. Patient is relieved. Plan to provide a soapsuds enema. Patient tolerated the enema well and subsequently had a moderate-sized bowel movement, reports much improvement and requesting her IV be pulled so she may be discharged. Standard discharge and return precautions were provided. Patient understands, is agreeable to this plan, and has no additional questions or concerns upon discharge. This documentation was generated using [employer] system, please disregard any oddities of phrase or misspellings. Medical Records Medical records reviewed: Yes I reviewed the patient's medical records. Imaging Data Radiologic Study: Attestation: I personally reviewed and interpreted this imaging study as follows: Imaging: X-Ray Radiologist's impression: Exam(s) XR ABDOMEN FLAT UPRIGHT EXAM: 2D digital imaging was performed. CLINICAL HISTORY: constipation. COMPARISON: CT ABD PELVIS WITH CONTRAST from 03/16/2017 TECHNIQUE: Supine and uprightSupine and Lateral views of the abdomen were performed. FINDINGS: BOWEL GAS PATTERN: Large quantity of stool seen throughout the colon small bowel in stomach nondistended.No free air. CALCIFICATIONS: No urinary tract calcifications. Calcification of the inferior abdominal aorta. OSSEOUS STRUCTURES: Right hip prosthesis. Degenerative changes and scoliosis in the lumbar spine. Visualized portions of chest: Unremarkable. IMPRESSION: 1. Nonobstructive bowel gas pattern. Large quantity of stool consistent with constipation. 2. No radiopaque calculi. 3. No free air Lab Data Lab results reviewed: Yes I reviewed the patient's lab results. Labs: Laboratory Tests Range/Units 10/04/22 10/04/22 11:30 11:30 WBC (4.4-10.8) 10^3/uL 9.02 RBC (3.93-5.22) 10^6/uL 4.51 Hgb (11.2-15.7) g/dL 15.4 Hct (36.0-46.0) % 43.1 MCV (80-95) fL 96 H MCH (27.0-33.0) pg 34.1 H MCHC (32.0-36.0) % 35.7 RDW (11.7-14.6) % 12.3 Plt Count (130-400) 10^3/uL 235 MPV (8.0-11.0) fL 7.8 L Immature Gran % 0.8 Neutrophils % 73.0 Lymphocytes % 17.7 Monocytes % 7.8 Eosinophils % 0.4 Basophils % 0.3 Nucleated RBC % (0.0-0.3) % 0.0 Absolute Neutrophils (1.2-6.7) 10^3/uL 6.58 Absolute Lymphocytes (1.2-3.4) 10^3/uL 1.60 Absolute Monocytes (0.1-0.8) 10^3/uL 0.70 Absolute Eosinophils (0.0-0.7) 10^3/uL 0.04 Absolute Basophils (0.0-0.2) 10^3/uL 0.03 Sodium (136-145) mmol/L 133 L Potassium (3.5-5.1) mmol/L 3.0 L Chloride (98-107) mmol/L 98 Carbon Dioxide (21.0-32.0) mmol/L 23.9 Anion Gap (3-11) mmol/L 11.1 H BUN (7-18) mg/dL 16 Creatinine (0.55-1.02) mg/dL 0.7 Est GFR (CKD-EPI 2020) (mL/min/1.73m2) 85.76 Glucose (74-106) mg/dL 96 Calcium (8.5-10.1) mg/dL 9.6 Total Bilirubin (0.2-1.0) mg/dL 1.0 AST (15-37) U/L 24 ALT (14-59) U/L 36 Alkaline Phosphatase (46-116) U/L 62 Total Protein (6.4-8.2) g/dL 6.5 Albumin (3.4-5.0) g/dL 4.0 ECG Data Attestation: I personally reviewed and interpreted this ECG (s) as follows: Interpretation: Sinus rhythm, ventricular rate of 68, no STEMI. HPI General Mode of arrival: ambulatory . Date/Time Provider Initiated Documentation: 10/04/22 10:35 . Limitations to Documentation: no limitations . Information obtained by: patient . HPI Narrative: This is an 81-year-old female with a past medical history of GERD, depression, hypertension, osteoporosis, not anticoagulated, reporting painful small hard bowel movements over the past 2 days. Patient denies recent illness or trauma, fever, abdominal pain, nausea, vomiting, black tarry stools or bright red blood in her stools. Patient reports that she typically has loose stools and does not typically suffer from constipation. She denies any known hemorrhoids. Patient reports that she is asymptomatic unless she is attempting to have a bowel movement. She denies recent fever. Has not taken any knne-adw-uunlujg medication for her symptoms. Denies change in appetite. Patient reports colonoscopy approximately 1 year ago. Related Data Home Medications Medication Instructions Recorded Confirmed multivitamin with iron 1 ea PO DAILY 07/05/13 10/04/22 calcium-magnesium 750 mg-465 mg 1 tab PO DAILY 02/23/20 10/04/22 tablet diltiazem HCl 120 mg 120 mg PO QAM #90 caps 11/09/21 10/04/22 capsule,extended release 24 hr valerian root 500 mg capsule 500 mg PO DAILY 11/16/21 10/04/22 hydrochlorothiazide 12.5 mg tablet 12.5 mg PO QAM #90 tabs 01/17/22 10/04/22 losartan 50 mg tablet 50 mg PO DAILY #90 tabs 02/02/22 10/04/22 letrozole 2.5 mg tablet 2.5 mg PO DAILY 08/10/22 10/04/22 aspirin 325 mg tablet 325 mg PO DAILY 08/28/22 10/04/22 cyclobenzaprine 10 mg tablet 10 mg PO TID PRN muscle spasm #90 08/28/22 10/04/22 tabs megestrol 400 mg/10 mL (10 mL) 400 mg (10 mL) PO DAILY #1,000 mL 08/28/22 10/04/22 oral suspension psyllium husk (with sugar) 3.4 1 tbsp PO DAILY #861 grams 08/28/22 10/04/22 gram/12 gram oral powder (Metamucil (with sugar)) meloxicam 15 mg tablet 15 mg PO DAILY #30 tabs 09/18/22 10/04/22 Previous Rx's Medication Instructions Recorded diltiazem HCl 120 mg 120 mg PO QAM #90 caps 11/09/21 capsule,extended release 24 hr hydrochlorothiazide 12.5 mg tablet 12.5 mg PO QAM #90 tabs 01/17/22 losartan 50 mg tablet 50 mg PO DAILY #90 tabs 02/02/22 cyclobenzaprine 10 mg tablet 10 mg PO TID PRN muscle spasm #90 08/28/22 tabs megestrol 400 mg/10 mL (10 mL) 400 mg (10 mL) PO DAILY #1,000 mL 08/28/22 oral suspension psyllium husk (with sugar) 3.4 1 tbsp PO DAILY #861 grams 08/28/22 gram/12 gram oral powder (Metamucil (with sugar)) meloxicam 15 mg tablet 15 mg PO DAILY #30 tabs 09/18/22 Allergies Allergy/AdvReac Type Severity Reaction Status Date / Time Penicillins Allergy Mild Skin Rash Verified 10/04/22 10:35 General Stated Complaint: Abd Prob EMANUEL: 4 Review of Systems Constitutional Constitutional: Denies fever(s) Cardiovascular Cardiovascular: Denies chest pain and Denies dyspnea Respiratory Respiratory: Denies cough and Denies dyspnea Gastrointestinal Gastrointestinal: Denies abdominal pain, Denies melena, Denies hematochezia, Reports constipation, Denies diarrhea, Denies loose stools, Denies nausea and Denies vomiting Genitourinary Genitourinary: Denies dysuria Musculoskeletal Musculoskeletal: Denies back pain Integumentary/Breasts Skin/Breast: Denies rash Hematologic/Lymphatic Hematologic/Lymphatic: Denies easy bleeding and Denies easy bruising PFSH All Active Problems (Updated 10/04/22 @ 14:37 by ANITA Ying) Constipation (Acute) Hypokalemia (Acute) Loose stools (Acute) Weight loss, abnormal (Acute) Hyperlipidemia (Chronic) Chronic cough (Chronic) 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) Paroxysmal atrial fibrillation (Chronic ~2013) Trochanteric bursitis, left hip (Acute) Steroid injection: 08/07/2022 Complaints of memory disturbance (Acute) Medical History GERD (gastroesophageal reflux disease) Herpes zoster History of shingles Major depressive disorder Paroxysmal SVT (supraventricular tachycardia) Pulmonary embolism (2013) Surgical History History of bunionectomy of right great toe History of total right hip replacement (06/28/22) S/P appendectomy S/P bunionectomy Right S/P colonoscopy S/P tonsillectomy Status post left breast lumpectomy (02/23/21) Family History Mother , age 78 Cancer Unknown type Hypertension Father Heart disease Hypertension Sister , age 76 Asthma Breast cancer Hypertension Lung cancer Sister , age 70 Colon cancer Heart disease Lung disease Brother , age 76 Lung cancer Hypertension Heart disease Son Prostate cancer Son No problems noted. Daughter No problems noted. Daughter No problems noted. Maternal Grandfather No problems noted. Maternal Grandmother TB (pulmonary tuberculosis) Paternal Grandfather No problems noted. Paternal Grandmother No problems noted. Social History Smoking/Tobacco Use Status: Never Second Hand Exposure: Yes Smoking risk assessment performed?: Yes Alcohol Intake: current Alcohol Intake frequency: holidays/special occasions only Alcohol type: beer, wine and hard liquor Drug use: Daily Substance use type: marijuana Caregiver/Support person: No Household members: none Housing: house Do you need help understanding health information?: Rarely Pets and animals: No Sexually active: No Do you think of yourself as: straight/heterosexual Current gender identity: female What is your relationship status?: How often do you talk on the phone with friends or family?: three or more times per week How often do you get together with friends or relatives?: decline to answer How often do you attend voodoo or christianity services?: decline to answer Do you belong to any clubs or organized social groups?: yes Panel score (0-1 are the most socially isolated patients): 2 What type of physical activity do you participate in: walking and other Details: stretching Duration: < 15 minutes/day Frequency: daily Loni/Jehovah'S Witness: Yazidism Special loni needs: No Seatbelt use: always Helmet use: No Drive intox or ride w/intox inventory associate and driver: No Do you feel safe at home: Yes Additional Social history: unable to assess privately Exam Const General: cooperative, healthy appearing, comfortable and no acute distress Orientation: alert and awake HENDC Head: normal to inspection, normocephalic and atraumatic Face and sinus: normal facial exam Mouth: moist mucous membranes Eyes Conjunctivae: conjunctivae normal Neck Neck: normal visual inspection, full ROM, no meningeal signs, trachea midline and supple Resp Effort & Inspection: normal respiratory effort and able to speak in complete sentences Auscultation: clear to auscultation bilaterally Cardio Rate: regular rate Rhythm: regular rhythm GI Inspection: normal to inspection Palpation: soft, not firm, no guarding, no pulsatile masses and nontender Auscultation: normal bowel sounds Rectal Exam - female: visual inspection normal, normal sphincter tone, No fecal impaction, No fissure, heme negative stool, No hemorrhoids and No tenderness Skin General skin exam: no rashes or lesions noted Neuro General: patient alert, patient awake, moves all extremities and no focal motor deficits Sensory Exam: no sensory deficits noted Psych Appearance: grossly normal Mental Status: mental status grossly normal Course Vital Signs Vital signs: Vital Signs Temperature 36.8 C 10/04/22 10:30 Pulse 89 10/04/22 10:30 Respiratory Rate 16 10/04/22 10:30 Blood Pressure 125/87 10/04/22 10:30 Pulse Oximetry 99 10/04/22 10:30 Temperature 36.8 C 10/04/22 10:30 Temperature Source Tympanic 10/04/22 10:30 Pulse 89 10/04/22 10:30 Respiratory Rate 16 10/04/22 10:30 Respiratory Effort Normal 10/04/22 10:34 Blood Pressure 125/87 10/04/22 10:30 Blood Pressure Position Sitting 10/04/22 10:30 Pulse Oximetry 99 10/04/22 10:30 Oxygen Delivery Method Room Air 10/04/22 10:30 Oxygen Flow Rate 0 10/04/22 10:30 Pain Level 0 10/04/22 10:42
[2022-10-04] MEDS: Normal Saline 1,000 ML 1000 ML IV (11:36)
[2022-10-04 11:43] LABS: Abs Immature Grans 0.07 10^3/uL (0.0-0.06); Absolute Basophil Count 0.03 10^3/uL (0.0-0.2); Absolute Eosinophil Count 0.04 10^3/uL (0.0-0.7); Absolute Neutrophil Count 6.58 10^3/uL (1.2-6.7); Basophils % 0.3; Eosinophils % 0.4; HCT 43.1 % (36.0-46.0); HGB 15.4 g/dL (11.2-15.7); Immature Grans % 0.8; Lymphocytes % 17.7; MCH 34.1 pg (27.0-33.0); MCHC 35.7 % (32.0-36.0); MCV 96 fL (80-95); MPV 7.8 fL (8.0-11.0); Monocytes % 7.8; Platelet Count 235 10^3/uL (130-400); RBC 4.51 10^6/uL (3.93-5.22); RDW 12.3 % (11.7-14.6); RDW-SD 43.8 fL; WBC 9.02 10^3/uL (4.4-10.8)
[2022-10-04 11:58] LABS: ALT 36 U/L (14-59); AST 24 U/L (15-37); Alkaline Phosphatase 62 U/L (46-116); Anion Gap 11.1 mmol/L (3-11); BUN 16 mg/dL (7-18); CO2 23.9 mmol/L (21.0-32.0); CREATININE 0.7 mg/dL (0.55-1.02); Calcium 9.6 mg/dL (8.5-10.1); Chloride 98 mmol/L (98-107); Estimated GFR 85.76 (mL/min/1.73m2); Glucose 96 mg/dL (74-106); Sodium 133 mmol/L (136-145); Total Protein 6.5 g/dL (6.4-8.2)
--- NOTE | 2022-10-04 12:00 | RT.EKG_ITS ---
APPROVED REPORT Exam: Resting ECG Reason for Exam: low k Patient Location: E HR:68 bpm ECG Measurements Heart Rate 68 AXIS WA 121 P 73 QRSd 82 QRS 33 QT 410 T 54 QTc 435 Conclusion Sinus rhythm...normal P axis, V-rate 60- 99 Supraventricular bigeminy...bigeminy string>4 w/ SV complexes Narrow complex normal sinus rhythm at a rate of 68. Normal axis. Intervals within the limits. No p rior for comparison. T wave flattening in lead III. No ST segment abnormalities.
--- NOTE | 2022-10-04 12:11 | DI.RAD_ITS ---
Exam(s) XR ABDOMEN FLAT UPRIGHT EXAM: 2D digital imaging was performed. CLINICAL HISTORY: constipation. COMPARISON: CT ABD PELVIS WITH CONTRAST from 03/16/2017 TECHNIQUE: Supine and uprightSupine and Lateral views of the abdomen were performed. FINDINGS: BOWEL GAS PATTERN: Large quantity of stool seen throughout the colon small bowel in stomach nondisten ded.No free air. CALCIFICATIONS: No urinary tract calcifications. Calcification of the inferior abdominal aorta. OSSEOUS STRUCTURES: Right hip prosthesis. Degenerative changes and scoliosis in the lumbar spine. Visualized portions of chest: Unremarkable. IMPRESSION: 1. Nonobstructive bowel gas pattern. Large quantity of stool consistent with constipation. 2. No radiopaque calculi. 3. No free air. DATA REPOSITORY: RADIATION DOSE DELIVERED:
[2022-10-04 12:59] VITALS: O2SAT 100
[2022-10-04 13:00] VITALS: BP 155/78; PULSE 55; O2SAT 98
[2022-10-04 13:01] VITALS: O2SAT 100
== END 2022-10-04 15:00 | disposition home or self-care (01) ==
PROVIDERS: Emergency Provider Physician Assistant; PCP Nurse Practitioner Family
DX: K59.00 Constipation, unspecified (principal); E87.6 Hypokalemia; I10 Essential (primary) hypertension; M81.0 Age-related osteoporosis without current pathological fracture; Z86.711 Personal history of pulmonary embolism; Z79.82 Long term (current) use of aspirin
CPT/HCPCS: 80053; 93005; 96360; 99284; 74019; 85025; 93010

== ENCOUNTER → 2022-11-06 14:28 | Outpatient (BNVA) | payer MEDICARE, SELFPAY | PROVIDERS: PCP Nurse Practitioner Family; Referring Provider Nurse Practitioner Family; Visit Provider Student in an Organized Health Care Education/Training Program | DX: M48.061 Spinal stenosis, lumbar region without neurogenic claudication (principal) | CPT/HCPCS: 99214 ==

== ENCOUNTER 2022-11-14 01:36 | Outpatient (CLI) | payer MEDICARE, SELFPAY ==
--- NOTE | 2022-11-14 08:09 | DI.MAMMO_ITS ---
Exam(s) MG MAMMO DIAGNOSTIC UNI EXAM: MAMMO DIAGNOSTIC UNI CLINICAL HISTORY: f/u abnormal left breast mammo,6 mo f/u,r92.8,asymmetric breast tissue. TECHNIQUE: Craniocaudal and mediolateral oblique Full Field Digital Mammography views of the left br east with Computer Aided Diagnosis followed by Tomosynthesis. COMPARISON: Comparison is made with prior examinations. FINDINGS: Mammography/Tomosynthesis: Masses/Architectural Distortion: None seen. Microcalcifictions: No suspicious pleomorphic-type are seen. Skin Thickening/Nipple Retraction: None. IMPRESSION: 1. No evidence of malignancy is noted. 2. Unless there is more urgent need, follow-up screening mammography is recommended, as per [place] [employer] guidelines. 3. The findings were discussed with the patient on the date of the examination. BI-RADS Category 1 - Negative Breast Density - Category B - Scattered areas of fibroglandular density Breast density Category C or D implies that the patient has dense breast tissue. Dense breast tissue can make it harder to find cancer on a mammogram. Dense breast tissue is also associated with an incr eased risk of breast cancer. This information about the result of the mammogram report was provided to the patient to raise their awareness. Use this report when you speak with the patient about their risks for breast cancer, which includes their family history. At that time, you may recommend additional screening tests (Ultrasoun d or MRI) as these tests may add significant information. A negative radiographic report should not delay biopsy if a dominant or clinically suspicious mass is present. Up to ten percent of cancers are not identified on mammography. A negative report may reinforce clinical impression. Adenosis and dense breasts may obscure an underlying neoplasm. False positive reports average 6 to 10%. Patient will receive a letter notifying them of these results.
== END 2022-11-14 01:56 ==
PROVIDERS: PCP Nurse Practitioner Family; Visit Provider Nurse Practitioner Family
DX: R92.8 Other abnormal and inconclusive findings on diagnostic imaging of breast (principal); N64.59 Other signs and symptoms in breast
CPT/HCPCS: 77061; 77065; G0279

== ENCOUNTER 2022-11-21 03:02 | Outpatient (CLI) | payer MEDICARE, SELFPAY ==
[2022-11-21 09:03] LABS: Abs Immature Grans 0.04 10^3/uL (0.0-0.06); Absolute Basophil Count 0.04 10^3/uL (0.0-0.2); Absolute Eosinophil Count 0.17 10^3/uL (0.0-0.7); Absolute Lymphocyte Count 1.65 10^3/uL (1.2-3.4); Absolute Monocyte Count 0.54 10^3/uL (0.1-0.8); Absolute Neutrophil Count 3.17 10^3/uL (1.2-6.7); Basophils % 0.7; HCT 39.3 % (36.0-46.0); HGB 13.5 g/dL (11.2-15.7); Immature Grans % 0.7; Lymphocytes % 29.4; MCH 34.2 pg (27.0-33.0); MCHC 34.4 % (32.0-36.0); MCV 100 fL (80-95); Monocytes % 9.6; Neutrophils % 56.6; Platelet Count 221 10^3/uL (130-400); RBC 3.95 10^6/uL (3.93-5.22); RDW 11.9 % (11.7-14.6); WBC 5.61 10^3/uL (4.4-10.8)
[2022-11-21 09:14] LABS: Hemoglobin A1C 4.5 % (<5.7)
[2022-11-21 09:31] LABS: ALT 28 U/L (14-59); AST 17 U/L (15-37); Albumin 4.1 g/dL (3.4-5.0); Alkaline Phosphatase 64 U/L (46-116); Anion Gap 3.9 mmol/L (3-11); BUN 16 mg/dL (7-18); Bilirubin, Total 0.6 mg/dL (0.2-1.0); CO2 29.1 mmol/L (21.0-32.0); CREATININE 0.6 mg/dL (0.55-1.02); Calcium 10.1 mg/dL (8.5-10.1); Chloride 102 mmol/L (98-107); Estimated GFR 88.45 (mL/min/1.73m2); Glucose 95 mg/dL (74-106); Potassium 4.2 mmol/L (3.5-5.1); Sodium 135 mmol/L (136-145); TSH (W/Ref FT4) 1.71 uIU/mL (0.36-3.74); Total Protein 6.8 g/dL (6.4-8.2)
[2022-11-21 09:49] LABS: Vitamin B12 617 pg/mL (193-986)
== END 2022-11-21 03:03 | disposition home or self-care (01) ==
PROVIDERS: PCP Nurse Practitioner Family; Visit Provider Nurse Practitioner Family
DX: C50.412 Malignant neoplasm of upper-outer quadrant of left female breast (principal); R41.3 Other amnesia; R73.01 Impaired fasting glucose; Z17.0 Estrogen receptor positive status [ER+]; R63.4 Abnormal weight loss
CPT/HCPCS: 36415; 80053; 82607; 83036; 84443; 85025

== ENCOUNTER 2023-02-22 09:24 | Outpatient (CLI) | payer MEDICARE, SELFPAY ==
[2023-02-22 12:25] LABS: Abs Immature Grans 0.03 10^3/uL (0.0-0.06); Absolute Basophil Count 0.03 10^3/uL (0.0-0.2); Absolute Lymphocyte Count 2.21 10^3/uL (1.2-3.4); Absolute Neutrophil Count 2.92 10^3/uL (1.2-6.7); Basophils % 0.5; Eosinophils % 1.7; HCT 37.8 % (36.0-46.0); HGB 13.3 g/dL (11.2-15.7); Immature Grans % 0.5; Lymphocytes % 37.5; MCHC 35.2 % (32.0-36.0); MCV 94 fL (80-95); MPV 8.4 fL (8.0-11.0); Monocytes % 10.2; Neutrophils % 49.6; Platelet Count 273 10^3/uL (130-400); RBC 4.03 10^6/uL (3.93-5.22); RDW 11.9 % (11.7-14.6); RDW-SD 41.1 fL; WBC 5.89 10^3/uL (4.4-10.8)
[2023-02-22 12:59] LABS: ALT 22 U/L (14-59); AST 18 U/L (15-37); Albumin 4.4 g/dL (3.4-5.0); Alkaline Phosphatase 62 U/L (46-116); Anion Gap 11.9 mmol/L (3-11); BUN 20 mg/dL (7-18); Bilirubin, Total 0.7 mg/dL (0.2-1.0); CO2 24.1 mmol/L (21.0-32.0); CREATININE 0.9 mg/dL (0.55-1.02); Calcium 9.6 mg/dL (8.5-10.1); Chloride 104 mmol/L (98-107); Estimated GFR 63.04 (mL/min/1.73m2); Glucose 84 mg/dL (74-106); Lipase 34 U/L (16-77); Potassium 3.4 mmol/L (3.5-5.1); Sodium 140 mmol/L (136-145); TSH (W/Ref FT4) 1.63 uIU/mL (0.36-3.74); Total Protein 7.1 g/dL (6.4-8.2)
[2023-02-23 10:21] LABS: CA 125 7 U/mL (<30)
== END 2023-02-22 09:25 | disposition home or self-care (01) ==
LOC: LOS 09:25
PROVIDERS: PCP Nurse Practitioner Family; Referring Provider Nurse Practitioner Family; Visit Provider Nurse Practitioner Family
DX: R63.4 Abnormal weight loss (principal); C50.412 Malignant neoplasm of upper-outer quadrant of left female breast; E78.5 Hyperlipidemia, unspecified; R97.8 Other abnormal tumor markers
CPT/HCPCS: 36415; 80053; 83690; 86304; 84443; 85025

== ENCOUNTER 2023-02-26 08:53 | Outpatient (CLI) | payer MEDICARE, SELFPAY ==
--- NOTE | 2023-02-26 08:45 | RT.EKG_ITS ---
APPROVED REPORT Exam: Resting ECG Reason for Exam: paroxysmal afib Patient Location: O HR:89 bpm ECG Measurements Heart Rate 89 AXIS NM 142 P 80 QRSd 93 QRS 43 QT 351 T 55 QTc 428 Conclusion Sinus rhythm...normal P axis, V-rate 50- 99
== END 2023-02-26 08:54 | disposition home or self-care (01) ==
LOC: DI.CARD 08:54
PROVIDERS: PCP Nurse Practitioner Family; Visit Provider Internal Medicine Cardiovascular Disease
DX: I48.0 Paroxysmal atrial fibrillation (principal)
CPT/HCPCS: 93010

== ENCOUNTER → 2023-02-26 11:08 | Outpatient (BNVA) | payer MEDICARE, SELFPAY | PROVIDERS: PCP Nurse Practitioner Family; Referring Provider Nurse Practitioner Family; Visit Provider Internal Medicine Cardiovascular Disease | DX: I10 Essential (primary) hypertension (principal); M48.061 Spinal stenosis, lumbar region without neurogenic claudication | CPT/HCPCS: 93005; 99203; 99213 ==

== ENCOUNTER 2023-03-14 02:53 | Outpatient (CLI) | payer MEDICARE, SELFPAY ==
--- NOTE | 2023-03-14 07:55 | DI.US_ITS ---
Exam(s) US ABDOMEN PELVIS EXAM: US ABDOMEN PELVIS CLINICAL HISTORY: unintentional weight loss,R63.4 TECHNIQUE: Ultrasound abdomen performed using standard protocol. COMPARISON: US ABDOMEN ULTRASOUND (P) from 11/19/2015 FINDINGS: ABDOMEN ABDOMINAL AORTA AND IVC: Visualized portions normal caliber. PANCREAS: Normal where visualized. LIVER: Normal. Hepatopedal flow in the Portal Vein. GALLBLADDER:No evidence of cholelithiasis. No evidence of wall thickening. No pericholecystic fluid i dentified. There is a 2 mm immobile echogenic nodule along the wall of the gallbladder which may repr esent a polyp. BILIARY SYSTEM: Common bile duct measures < 7 mm. No intrahepatic biliary ductal dilation. KAY'S SIGN: Negative. KIDNEYS: Kidneys are symmetric in size. No evidence of renal calculi. No evidence of hydronephrosis. There is a 1.5 cm simple cyst in the left kidney. No follow-up is recommended. SPLEEN: Not enlarged. ASCITES: None seen. PELVIC: The patient declined the transvaginal portion of the examination. UTERUS: The uterus cannot be visualized due to overlying bowel. OVARIES: The ovaries could not be seen due to overlying bowel gas. CUL-DE-SAC: Free fluid: None. IMPRESSION: 1. 2 mm gallbladder polyp. 2. Otherwise unremarkable abdominal ultrasound. 3. The patient declined the transvaginal portion of the pelvic examination. 4. The uterus and ovaries cannot be visualized due to overlying bowel on the transabdominal examinati on. DATA REPOSITORY:
--- NOTE | 2023-03-14 07:55 | DI.RAD_ITS ---
Exam(s) XR CHEST 2V PA LATERAL EXAM: XR CHEST 2V PA LATERAL CLINICAL HISTORY: unintentional weight loss,R63.4 TECHNIQUE: 2D digital imaging was performed of the chest. Two images were obtained. PA and lateral views were obtained. COMPARISON: CR CHEST 2 VIEWS PA,LAT from 10/14/2013 FINDINGS: MEDIASTINUM: Normal. HEART: Normal. PULMONARY VASCULATURE: Normal. LUNGS: Clear. PLEURAL SPACE: No pleural effusion or pneumothorax. BONE:Within normal limits for the patient's age. OTHER FINDINGS:Normal. IMPRESSION: No acute pulmonary findings. DATA REPOSITORY: RADIATION DOSE DELIVERED:
== END 2023-03-14 03:13 ==
LOC: DI 02:53
PROVIDERS: PCP Nurse Practitioner Family; Visit Provider Nurse Practitioner Family
DX: R63.4 Abnormal weight loss (principal); K82.4 Cholesterolosis of gallbladder
CPT/HCPCS: 36415; 80061; 71046; 76700; 76856

== ENCOUNTER 2023-03-14 03:38 | Outpatient (CLI) | payer MEDICARE, SELFPAY ==
[2023-03-14 11:10] LABS: Calculated LDL 143 mg/dL (<100); Cholesterol 228 mg/dL (<200); HDL Cholesterol 71 mg/dL (40-60); Triglyceride 73 mg/dL (<150)
== END 2023-03-14 03:39 | disposition home or self-care (01) ==
LOC: LBO 03:38
PROVIDERS: PCP Nurse Practitioner Family; Visit Provider Nurse Practitioner Family
DX: E78.5 Hyperlipidemia, unspecified (principal)
CPT/HCPCS: 36415; 80061

== ENCOUNTER 2023-03-22 14:14 | Outpatient (CLI) | payer MEDICARE, SELFPAY ==
--- NOTE | 2023-03-22 14:00 | RT.EKG_ITS ---
APPROVED REPORT Exam: Resting ECG Reason for Exam: pre-op examination Patient Location: O HR:65 bpm ECG Measurements Heart Rate 65 AXIS MS 95 P 47 QRSd 88 QRS 54 QT 416 T 64 QTc 433 Conclusion Sinus rhythm...normal P axis, V-rate 50- 99 Normal Electrocardiogram
== END 2023-03-22 14:15 | disposition home or self-care (01) ==
LOC: DI.CM 14:15
PROVIDERS: PCP Nurse Practitioner Family; Visit Provider Nurse Practitioner Family
DX: Z01.818 Encounter for other preprocedural examination (principal)
CPT/HCPCS: 93010

== ENCOUNTER → 2023-04-11 03:34 | Outpatient (CLI) | payer MEDICARE, SELFPAY | PROVIDERS: PCP Nurse Practitioner Family; Visit Provider Nurse Practitioner Family | DX: Z12.31 Encounter for screening mammogram for malignant neoplasm of breast (principal) | CPT/HCPCS: 77063; 77067 ==

== ENCOUNTER → 2023-04-26 14:31 | Outpatient (BNVA) | payer MEDICARE, SELFPAY | PROVIDERS: PCP Nurse Practitioner Family; Referring Provider Nurse Practitioner Family; Visit Provider Student in an Organized Health Care Education/Training Program | DX: M70.62 Trochanteric bursitis, left hip (principal); M16.12 Unilateral primary osteoarthritis, left hip | CPT/HCPCS: 20610; J1040 ==

== ENCOUNTER 2023-07-02 14:21 | Outpatient (CLI) | payer MEDICARE, SELFPAY ==
--- NOTE | 2023-07-02 13:15 | DI.RAD_ITS ---
Exam(s) XR HIP RT AP LAT ONLY EXAM: XR HIP RT AP LAT ONLY CLINICAL HISTORY: annual f/u R FIDELINA. TECHNIQUE: 2D digital imaging was performed. Two views COMPARISON: CR XR HIP RT COMPLETE AP PELVIS from 07/10/2022 FINDINGS: BONES: No acute fracture is present. No bony destructive lesion is seen. JOINTS: No dislocation present. Stable appearance of right total hip prosthesis. SOFT TISSUE: Normal. IMPRESSION: Stable appearance of right total hip prosthesis. DATA REPOSITORY: RADIATION DOSE DELIVERED:
--- NOTE | 2023-07-02 13:45 | DI.RAD_ITS ---
Exam(s) XR PELVIS AP EXAM: XR PELVIS AP CLINICAL HISTORY: PRE OP L FIDELINA. TECHNIQUE: 2D digital imaging was performed. COMPARISON: CR XR HIP RT COMPLETE AP PELVIS from 07/10/2022 CR XR HIP RT AP LAT ONLY from 07/02/2023 FINDINGS: BONES: No acute fracture is present. No bony destructive lesion is seen. JOINTS: No dislocation present. There has been no change in the alignment of the right total hip pros thesis. Mild to moderate degenerative changes are noted in the left hip. SOFT TISSUE: Normal. IMPRESSION: Stable appearance of right hip prosthesis. [id number] degenerative changes of the left hip. DATA REPOSITORY: RADIATION DOSE DELIVERED:
== END 2023-07-02 14:22 | disposition home or self-care (01) ==
LOC: DIORS 14:22
PROVIDERS: PCP Nurse Practitioner Family; Visit Provider Student in an Organized Health Care Education/Training Program
DX: Z96.641 Presence of right artificial hip joint (principal); M16.12 Unilateral primary osteoarthritis, left hip
CPT/HCPCS: 99215; 72170; 73502

== ENCOUNTER 2023-07-16 03:20 | Outpatient (CLI) | payer MEDICARE, SELFPAY ==
[2023-07-16 11:19] LABS: HCT 39.2 % (36.0-46.0); HGB 13.3 g/dL (11.2-15.7); MCH 32.2 pg (27.0-33.0); MCHC 33.9 % (32.0-36.0); MCV 95 fL (80-95); MPV 8.1 fL (8.0-11.0); Platelet Count 203 10^3/uL (130-400); RBC 4.13 10^6/uL (3.93-5.22); RDW 12.3 % (11.7-14.6)
[2023-07-16 11:40] LABS: Anion Gap 7.7 mmol/L (3-11); BUN 12 mg/dL (7-18); CO2 28.3 mmol/L (21.0-32.0); CREATININE 0.6 mg/dL (0.55-1.02); Calcium 9.1 mg/dL (8.5-10.1); Chloride 101 mmol/L (98-107); Estimated GFR 88.45 (mL/min/1.73m2); Glucose 87 mg/dL (74-106); Potassium 3.9 mmol/L (3.5-5.1); Sodium 137 mmol/L (136-145)
== END 2023-07-16 03:21 | disposition home or self-care (01) ==
LOC: LBO 03:20
PROVIDERS: PCP Nurse Practitioner Family; Visit Provider Student in an Organized Health Care Education/Training Program
DX: M16.12 Unilateral primary osteoarthritis, left hip (principal); Z01.818 Encounter for other preprocedural examination
CPT/HCPCS: 36415; 80048; 85027

== ENCOUNTER 2023-07-25 07:23 | Observation (INO) | payer MEDICARE, SELFPAY ==
[2023-07-25] VITALS (16 sets, daily range): BP systolic 123–170; BP diastolic 52–82; PULSE 36–71; RESP 14–21; TEMP 36.4–37.5; O2SAT 98–100; BMI 19.8
[2023-07-25] MEDS: Lactated Ringers 1,000 ML 80 ML IV ×2 (06:20→12:07)
[2023-07-25] MEDS: Celecoxib 200 MG CAP 400 MG PO (06:41)
[2023-07-25] MEDS: Acetaminophen 500 MG TAB 1000 MG PO ×3 (06:41→20:14)
--- NOTE | 2023-07-25 06:45 | DI.RAD_ITS ---
Exam(s) XR HIP LT IN OR EXAM: XR HIP LT IN OR CLINICAL HISTORY: Osteoarthritis of left hip. TECHNIQUE: 2D and realtime digital imaging was performed. COMPARISON: No exams were available for comparison FINDINGS: Hard copy images show placement of a left hip prosthesis. The alignment appears satisfactory. Please see procedure note for details. Fluoro time: 20.1seconds RADIATION DOSE DELIVERED: Ka,r=1.27 mGy
--- NOTE | 2023-07-25 06:59 | W.ANESPRE ---
General Info Date of Service Date Performed: 07/25/23 Height: 5 ft 1 in Weight: 47.6 kg Body Mass Index (BMI): 19.8 Surgical Procedure: Operation Date: 07/25/23 07:50 Proposed Procedure Side Surgeon p Hip Total Hip Anterior, Corail Short Neck Left Chris Oviedo MD Meds Allergies and Home Medications Allergies Allergy/AdvReac Type Severity Reaction Status Date / Time Penicillins Allergy Mild Skin Rash Verified 07/25/23 06:23 Home Medication Medication Instructions Recorded multivitamin with iron 1 ea PO DAILY 07/05/13 calcium-magnesium 750 mg-465 mg 1 tab PO DAILY 02/23/20 tablet potassium chloride 20 mEq 20 meq PO DAILY #90 tabs 11/17/22 tablet,extended release valerian root 500 mg capsule 500 mg PO QHS 03/29/23 aspirin 325 mg tablet,delayed 325 mg PO DAILY 04/26/23 release tramadol 50 mg tablet 50 mg PO Q8H #30 tabs 07/10/23 Current Visit Medications: Current Medications Generic Name Dose Route Start Last Admin Trade Name Alliq PRN Reason Stop Dose Admin Acetaminophen 1,000 mg 07/25/23 06:00 07/25/23 06:41 Acetaminophen 500 Mg Tab PO 08/24/23 05:59 1,000 mg PREOP JAIR Administration Celecoxib 400 mg 07/25/23 06:00 07/25/23 06:41 Celecoxib 200 Mg Cap PO 08/24/23 05:59 400 mg PREOP JAIR Administration Tranexamic Acid 1,000 mg/ 60 mls @ 360 mls/hr 07/25/23 06:00 Sodium Chloride IV 08/24/23 05:59 PREOP JAIR Ringer's Solution 1,000 mls @ 80 mls/hr 07/25/23 06:00 IV 08/23/23 23:59 INFUSION JAIR Cefazolin Sodium/Dextrose 2 gm in 50 mls @ 100 mls/hr 07/25/23 06:00 Ancef Duplex IVPB 07/25/23 16:00 PREOP JAIR IV Miscellaneous Supplies 1 each 07/25/23 06:00 Iv Access IV 08/23/23 23:59 DIRECTED JAIR Sodium Chloride 0 ml 07/25/23 06:00 Normal Saline Flush 10 Ml Syr IV 08/23/23 23:59 PRN PRN Sodium Chloride 0 ml 07/25/23 06:00 Normal Saline 10 Ml Vial IJ 08/23/23 23:59 DIRECTED PRN Sterile Water 0 ml 07/25/23 06:00 Water,Injection,Sterile 10 Ml Vial IJ 08/23/23 23:59 DIRECTED PRN PFSH Active Problems Active Problems: Problem Status Onset Code Unintentional weight loss R63.4 Lumbar spinal stenosis M48.061 Trochanteric bursitis, left hip M70.62 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 Lumbar back pain with radiculopathy affecting right lower extremity M54.16 Bilateral hearing loss H91.93 Memory loss R41.3 Osteoarthritis of left hip M16.12 Essential hypertension I10 Osteoporosis M81.0 Chronic rhinitis J31.0 Diverticulosis of colon K57.30 Adenocarcinoma of left breast ~12/2020 C50.912 Chronic cough R05 Hyperlipidemia E78.5 Medical History Medical History Paroxysmal atrial fibrillation (~2013) One episode in 2013 Herpes zoster Major depressive disorder Paroxysmal SVT (supraventricular tachycardia) GERD (gastroesophageal reflux disease) Pulmonary embolism (2013) 2018 Medical History Comments:: Daily Marijauna use Surgical History Surgical History S/P lumbar laminectomy (03/26/23) L4-L5, L5-S1 History of bunionectomy of right great toe Status post left breast lumpectomy (02/23/21) S/P colonoscopy History of total right hip replacement (06/28/22) S/P bunionectomy Right S/P tonsillectomy S/P appendectomy Tobacco Smoking/Tobacco Use Status: Never Passive smoking exposure: Yes Second hand exposure: Yes Alcohol Alcohol Intake: current Alcohol intake frequency: holidays/special occasions only Alcohol type: beer, wine and hard liquor Substance Use Substance use: Daily Substance use type: marijuana Details: marijuana: couple days ago, uses a pipe. alcohol: t-1, sip of beer Vital Signs and Lab Results Vital Signs Most Recent Vital Signs in EMR: Most Recent Vital Signs Temp Pulse Resp BP Pulse Ox 36.6 C 69 16 170/82 H 100 07/25/23 06:44 07/25/23 06:44 07/25/23 06:44 07/25/23 06:44 07/25/23 06:44 Lab Results Blood Type / Crossmatch: No Data to Display Complete Blood Count: White Blood Count 5.20 10^3/uL (4.4-10.8) 07/16/23 11:10 Red Blood Count 4.13 10^6/uL (3.93-5.22) 07/16/23 11:10 Hemoglobin 13.3 g/dL (11.2-15.7) 07/16/23 11:10 Hematocrit 39.2 % (36.0-46.0) 07/16/23 11:10 Platelet Count 203 10^3/uL (130-400) 07/16/23 11:10 Complete Metabolic Panel: Sodium 137 mmol/L (136-145) 07/16/23 11:10 Potassium 3.9 mmol/L (3.5-5.1) 07/16/23 11:10 Chloride 101 mmol/L (98-107) 07/16/23 11:10 Carbon Dioxide 28.3 mmol/L (21.0-32.0) 07/16/23 11:10 BUN 12 mg/dL (7-18) 07/16/23 11:10 Creatinine 0.6 mg/dL (0.55-1.02) 07/16/23 11:10 Est GFR (CKD-EPI 2020) 88.45 (mL/min/1.73m2) 07/16/23 11:10 Calcium 9.1 mg/dL (8.5-10.1) 07/16/23 11:10 Glucose 87 mg/dL (74-106) 07/16/23 11:10 Liver Function Panel: No Data to Display Coagulation Panel: No Data to Display Cardiac Panel: No Data to Display Arterial Blood Gas: No Data to Display Venous Blood Gas: No Data to Display Pancreas Panel: No Data to Display Thyroid Panel: No Data to Display Infectious Disease: No Data to Display Blood Cultures: No Data to Display Toxicology Panel: No Data to Display Imaging and Studies Imaging and Studies Study information below may be from another EMR and interpreted by another provider. Please see original notes in EMR for more complete details. EKG Summary: DATE/TIME OF SERVICE: 03/22/23 141 : 1940 PERFORMING LOCATION: [facility] APPROVED REPORT Exam: Resting ECG Reason for Exam: pre-op examination Patient Location: O HR:65 bpm ECG Measurements Heart Rate 65 AXIS MS 95 P 47 QRSd 88 QRS 54 QT 416 T64 QTc 433 Conclusion Sinus rhythm...normal P axis, V-rate 50- 99 Normal Electrocardiogram Echocardiogram Summary: 2014: FINDINGS: LEFT VENTRICLE/LVEF: Normal size and systolic/diastolic function. Estimated LVEF 70%. RIGHT VENTRICLE: Normal size and systolic function. AORTIC VALVE: Trileaflet, opens well with trace regurgitation. MITRAL VALVE: Anatomically normal with trace regurgitation. TRICUSPID VALVE: Opens well with trace regurgitation. RSV/PA/RIGHT ATRIAL PRESSURE: RSV pressure normal. PULMONIC VALVE: Normal. ATRIA: Normal biatrial size. DIASTOLIC INDICES: Normal. GREAT VESSELS: Normal. PERICARDIUM: No effusion. Anesthesia Assessment and Plan Anesthesia History Personal History: No History of Anesthesia Complications Family History: No Family History of Anesthesia Complications Exercise Tolerance Exercise Tolerance: Metabolic Equivalents>4 Pertinent Negatives Pertinent Negatives: No Symptoms of GERD and No Major Pulmonary Symptoms or Complaints Cardiac & Pulmonary Exam Cardiac Exam: Normal S1/S2 Heart Sounds Pulmonary Exam: Clear Bilateral Breath Sounds Implantable Cardiac Device Does patient have a Pacemaker or an ICD?: No Airway Exam Known Difficult Airway: No Mallampati Class: 2 Mouth Opening: Normal (> 3cm) Thyromental Distance: Greater than 3 cm Neck Range of Motion: Full ROM Neck Circumference: Normal Teeth Condition: Normal Dentition ASA Classification ASA Score: ASA 3 Emergency Case?: No NPO Status NPO Status: NPO Clears >2 hours, Solids >8 hours Anesthesia Plan Resuscitation Status: Full Code Anesthesia Technique: General Anesthesia Airway Planned: LMA Monitors Used: Standard Monitors
[2023-07-25] MEDS: ceFAZolin 2 GM/50 ML BAG IVPB (07:35)
--- OUTSIDE RECORDS SUMMARY | 2023-07-25 09:56 | XMS_ITS | Continuity of Care Document ---
Author Name Unknown Organization [facility] Ambulatory Clinics Address [address] [place] [address] Care Team Providers Care Reed Worker Name Role Phone LALITO KEANE NP Primary Care Physician Encounter [facility] NBR [id number] Date(s): 04/24/23 - 04/24/23 [facility] Ambulatory Clinics [address] [place], [place] [address] Encounter Diagnosis S/P lumbar laminectomy(Discharge Diagnosis) - 04/24/23 Discharge Disposition: Home or Self Care Attending Physician: Raghu Alexis MD Allergies, Adverse Reactions, Alerts Substance Reaction Severity Status penicillin Skin rash Moderate Active Adhesive Bandage Rash Mild Active Assessment and Plan Future Appointments Medications aspirin 81 mg oral delayed release tablet 81 mg = 1 tab, Oral, Daily, # 30 tab, 0 Refill(s) Start Date: 03/27/23 Status: Ordered Calcium and Magnesium oral tablet 1 tab, Oral, Daily, 0 Refill(s) Start Date: 11/30/22 Status: Ordered cyclobenzaprine 10 mg oral tablet 10 mg = 1 tab, Oral, TID, PRN as needed for muscle spasm, 0 Refill(s) Start Date: 03/19/23 Status: Ordered HYDROcodone-acetaminophen 5 mg-325 mg oral tablet 1 tab, Oral, every 6 hr, PRN pain, moderate, # 40 tab, 0 Refill(s), Pharmacy: [facility], 157, cm, 03/26/23 10:26:00 EDT, Height/Length Dosing, 54, kg, 03/26/23 10:26:00 EDT, Weight Dosing Start Date: 03/29/23 Stop Date: 04/08/23 Status: Ordered medical cannabis medical cannabis, 0 Refill(s) Start Date: 03/27/23 Status: Ordered megestrol 40 mg/mL oral suspension 400 mg = 10 mL, Oral, Daily RT, PRN appe, 0 Refill(s) Start Date: 11/30/22 Status: Ordered melatonin 5 mg oral tablet 5 mg = 1 tab, Oral, every day at bedtime, # 60 tab, 0 Refill(s) Start Date: 03/27/23 Status: Ordered multivitamin adult, oral tablet 1 tab, Oral, Daily, 0 Refill(s) Start Date: 11/30/22 Status: Ordered Potassium Chloride (Eqv-K-Tab) 20 mEq oral tablet, extended release 20 mEq = 1 tab, Oral, Daily, 0 Refill(s) Start Date: 11/30/22 Status: Ordered Valerian Root oral capsule 500 mg, Oral, every night at bedtime, 0 Refill(s) Start Date: 11/30/22 Status: Ordered Problem List Condition Confirmation Course Effective Dates Status H ealth Status Informant Memory loss Confirmed Active Antithrombin III deficiency Confirmed Active Arthritis Confirmed Active Bilateral hearing loss 1 Confirmed Active Chronic cough Confirmed Active Chronic rhinitis Confirmed Active Depressive disorder Confirmed Active Diverticulosis of colon Confirmed Active Essential hypertension Confirmed Active Female stress incontinence Confirmed Active GERD (gastroesophageal reflux disease) Confirmed Active Trochanteric bursitis of left hip 2 Confirmed Active Herpes zoster Confirmed Active Left hip pain Confirmed Active History of shingles Confirmed Active S/P lumbar laminectomy Confirmed Active History of migraine Confirmed Active Hyperlipidemia Confirmed Active Numbness 3 Confirmed Active Osteoporosis Confirmed Active Paroxysmal atrial fibrillation Confirmed Active Paroxysmal SVT (supraventricular tachycardia) Confirmed Active PONV - Postoperative nausea and vomiting Confirmed Active Seasonal allergies Confirmed Active Lumbar spinal stenosis Confirmed Active 1no aids 2steroid injection 08/07/22 3bilat legs and feet intermittent Procedures Procedure Date Related Diagnosis Body Site Status Laminectomy (Bilateral) 1 03/26/23 Completed Hip replacement 06/27/22 Completed Lumpectomy of left breast 02/22/21 Completed Appendectomy Completed Bunionectomy 2 Completed Colonoscopy Completed Excision of lymph node 3 Completed Tonsillectomy Completed 1auto-populated from documented surgical case 2right great toe 3from left neck Social History Social History Type Response Tobacco Former tobacco user Tobacco Use:. smoked less than a year when she was young socially states she did not inhale. per day. Sex Physician Outpatient Note * Reuben CLEVELANDRaghu: PERFORM Event Display: Office Clinic Note Physician Authored Date: [id number] ADELA HURTADO :1940 Age:82 years Sex:Female Visit Date:04/24/2023 Primary Care Physician: LALITO KEANE NP History of Present Illness A month since having had her lumbar laminectomy at L4-5 and L5-S1.?? She does not recall the pain??she was having??from the stenosis. ??She now has just the discomfort around the left hip.?? She tells me she has a known hip problem and expects to get a hip replacement on that side.?? She is not having any back discomfort from the incision.?? Unfortunately the hip pain??that she describes??is decreasing her ability to??function.?? She has been able to move about the house and do her laundry however. Physical Exam The patient looks well in the seated position.?She sits??with her legs crossed the left over theright.?? She is also able to flex her hip??completely on the left without discomfort. ??Internal and external rotation are bit limited??to movement. The wound is well-healed. There is some tenderness or around??and posterior to the greater trochanter on the left. The iliotibial band is slightly tender on the left. Assessment/Plan 1.??S/P lumbar laminectomy??Z98.890 The patient seems to have recovered from her laminectomy.?? She does not appear to be having any neurogenic type pain.?? She is limited??most likely??because of the orthopedic problems she is having in or about the hip on the left side.?? She has described getting an injection around the left hip previously that she states helped immensely.?? She will be calling her orthopedic surgeon. ?? Plan: The patient will discuss??treatments??of the hip with her orthopedic surgeon Follow-up??appointment in 6 weeks Problem List/Past Medical History Ongoing Antithrombin III deficiency Arthritis Bilateral hearing loss Chronic cough Chronic rhinitis Depressive disorder Diverticulosis of colon Essential hypertension Female stress incontinence GERD (gastroesophageal reflux disease) Herpes zoster History of migraine History of shingles Hyperlipidemia Left hip pain Lumbar spinal stenosis Memory loss Numbness Osteoporosis Paroxysmal atrial fibrillation Paroxysmal SVT (supraventricular tachycardia) PONV - Postoperative nausea and vomiting S/P lumbar laminectomy Seasonal allergies Trochanteric bursitis of left hip Historical Adenocarcinoma of left breast Pulmonary embolism Procedure/Surgical History ???Laminectomy (Bilateral) (03/26/2023)???Hip replacement (06/28/2022)???Lumpectomy of left breast ( 02/23/2021)???Appendectomy???Bunionectomy???Colonoscopy???Excision of lymph node???Tonsillectomy Medications aspirin 81 mg oral delayed release tablet, 81 mg= 1 tab, Oral, Daily Calcium and Magnesium oral tablet, 1 tab, Oral, Daily cyclobenzaprine 10 mg oral tablet, 10 mg= 1 tab, Oral, TID, PRN HYDROcodone-acetaminophen 5 mg-325 mg oral tablet, 1 tab, Oral, every 6 hr, PRN medical cannabis megestrol 40 mg/mL oral suspension, 400 mg= 10 mL, Oral, Daily RT, PRN melatonin 5 mg oral tablet, 5 mg= 1 tab, Oral, every night at bedtime multivitamin adult, oral tablet, 1 tab, Oral, Daily Potassium Chloride (Eqv-K-Tab) 20 mEq oral tablet, extended release, 20 mEq= 1 tab, Oral, Daily Valerian Root oral capsule, 500 mg, Oral, every night at bedtime Allergies penicillin??(Skin rash) Adhesive Bandage??(Rash) Social History Alcohol Current, 1-2 times per month Electronic Cigarette/Vaping Electronic Cigarette Use: Never. Home/Environment Lives with Alone. Living situation: Home/Independent. Home equipment: Cane, Walker. Substance Use Current, Marijuana, Daily- Comments: smokes Tobacco Former tobacco user Tobacco Use:. smoked less than a year when she was young socially states she did not inhale. per day. Electronically Signed on 04/24/23 12:15 PM Raghu Alexis MD Patient Care team information Care Team Personnel Name: LALITO KEANE NP Position: No Access Member Role: Primary Care Physician Address: Address: [address] [place] [id number]- Care Team Related Persons Name: CONI UHRTADO Address: Home Name: KAYLAH TUCKER Address: Home
--- OUTSIDE RECORDS SUMMARY | 2023-07-25 09:56 | XMS_ITS | Continuity of Care Document ---
Author Name Unknown Organization [facility] Ambulatory Clinics Address [address] [place] [address] Care Team Providers Care Burlap Worker Name Role Phone LALITO KEANE NP Primary Care Physician Encounter [facility] NBR [id number] Date(s): 06/12/23 - 06/12/23 [facility] Ambulatory Clinics [address] [place], [place] [address] Encounter Diagnosis S/P lumbar laminectomy(Discharge Diagnosis) - 06/12/23 Discharge Disposition: Home or Self Care Attending Physician: Raghu Alexis MD Allergies, Adverse Reactions, Alerts Substance Reaction Severity Status penicillin Skin rash Moderate Active Adhesive Bandage Rash Mild Active Medications aspirin 81 mg oral delayed release [...] moderate, # 40 tab, 0 Refill(s), Pharmacy: [facility], 157, cm, 03/26/23 10:26:00 EDT, [...] vomiting Confirmed Active Seasonal allergies Confirmed Active 1no aids 2steroid injection 08/07/22 3bilat legs and feet intermittent Procedures Procedure Date Related Diagnosis Body Site Status Laminectomy (Bilateral) 1 03/26/23 Completed Hip replacement 06/27/22 Completed Lumpectomy of left breast 02/22/21 Completed Appendectomy Completed Bunionectomy 2 Completed Colonoscopy Completed Excision of lymph node 3 Completed Tonsillectomy Completed 1auto-populated from documented surgical case 2right great toe 3from left neck Vital Signs Most recent to oldest [Reference Range]: 1 Temperature Temporal Artery [36-38 Deg C ] 36.5 Deg C (06/12/23 4:58 PM) Peripheral Pulse Rate [60-100 bpm] 66 bp m (06/12/23 4:58 PM) Blood Pressure [90-140/60-90 mmHg] 130/8 0mmHg (06/12/23 4:58 PM) Mean Arterial Pressure, Cuff [65-140 mmH g] 97 mmHg (06/12/23 4:58 PM) Social History Social History Type Response Tobacco Former tobacco user Tobacco Use:. smoked less than a year when she was young socially states she did not inhale. per day. Sex Physician Outpatient Note * Raghu Alexis MD: PERFORM Event Display: Office Clinic Note Physician Authored Date: [id number] ADELA HURTADO :1940 Age:82 years Sex:Female Visit Date:06/12/2023 Primary Care Physician: LAKHWINDER MCDONALD, LALITO Review of Systems The patient is 6 weeks since having had her lumbar laminectomy.?? She continues to enjoy relief of all of the sciatic pain that she had.?? The discomfort that??is limiting her now is referable to theleft hip. ??She tells me that she is scheduled to have hip surgery in July.?? Patient does not really have much in the way of any back pain. ??She is doing her chores around the house.?? She usesa walker for??longer walks. Physical Exam The patient looks well. ??She moves around the office without any limitations. ??On the way out shedid grab her walker and??hold onto it. The gait looks steady. Assessment/Plan 1.??S/P lumbar laminectomy??Z98.890 The patient is doing well since having had her laminectomy. ??She no longer has any sciatic pain. ??She does not have any significant back pain.?? Patient can follow-up on an as-needed basis. Problem List/Past Medical History Ongoing Antithrombin III deficiency Arthritis Bilateral hearing loss Chronic cough Chronic rhinitis Depressive disorder Diverticulosis of colon Essential hypertension Female stress incontinence GERD (gastroesophageal reflux disease) Herpes zoster History of migraine History of shingles Hyperlipidemia Left hip pain Memory loss Numbness Osteoporosis Paroxysmal atrial fibrillation Paroxysmal SVT (supraventricular tachycardia) PONV - Postoperative nausea and vomiting S/P lumbar laminectomy Seasonal allergies Trochanteric bursitis of left hip Historical Adenocarcinoma of left breast Lumbar spinal stenosis Pulmonary embolism Procedure/Surgical History ???Laminectomy (Bilateral) (03/26/2023)???Hip [...] not inhale. per day. Electronically Signed on 06/12/23 11:44 AM Raghu Alexis MD Patient Care team information Care Team Personnel Name: LALITO KEANE NP Position: No Access Member Role: Primary Care Physician Address: Address: [address] [place] [address]- Care Team Related Persons Name: CONI HURTADO Name: KAYLAH TUCKER
--- OUTSIDE RECORDS SUMMARY | 2023-07-25 09:56 | XMS_ITS | Continuity of Care Document ---
Author Name Unknown Organization [facility] Ambulatory Clinics Address [address] [place] [address] Care Team Providers Care Transportation Program Director Name Role Phone LAKHWINDER MCDONALD, LALITO Primary Care Physician Encounter [facility] NBR [id number] Date(s): 03/08/23 - 03/08/23 [facility] Ambulatory Clinics [address] [place] [address]- Discharge Disposition: Home Allergies, Adverse Reactions, Alerts Substance Reaction Severity Status penicillin Skin rash Moderate Active Assessment and Plan Future Scheduled Tests Radiology* MRI Spine Lumbar w/o Contrast 03/08/23 Medications Acidophilus Probiotic Blend 1 cap, Oral, Daily, 0 Refill(s) Start Date: 11/30/22 Status: Ordered aspirin 325 mg oral delayed release tablet 325 mg = 1 tab, Oral, Daily, 0 Refill(s) Start Date: 11/30/22 Status: Ordered Calcium and Magnesium oral tablet 1 tab, Oral, Daily, 0 Refill(s) Start Date: 11/30/22 Status: Ordered DilTIAZem (Eqv-Cardizem CD) 120 mg/24 hours oral capsule, extended release 120 mg = 1 cap, Oral, Daily, 0 Refill(s) Start Date: 11/30/22 Status: Ordered hydroCHLOROthiazide 12.5 mg oral tablet 12.5 mg = 1 tab, Oral, Daily, 0 Refill(s) Start Date: 11/30/22 Status: Ordered losartan 50 mg oral tablet 50 mg = 1 tab, Oral, Daily, 0 Refill(s) Start Date: 11/30/22 Status: Ordered megestrol 40 mg/mL oral suspension 400 mg = 10 mL, Oral, Daily RT, 0 Refill(s) Start Date: 11/30/22 Status: Ordered multivitamin adult, oral tablet 1 tab, Oral, Daily, 0 Refill(s) Start Date: 11/30/22 Status: Ordered Potassium Chloride (Eqv-K-Tab) 20 mEq oral tablet, extended release 20 mEq = 1 tab, Oral, Daily, 0 Refill(s) Start Date: 11/30/22 Status: Ordered Valerian Root oral capsule 500 mg, Oral, Daily, 0 Refill(s) Start Date: 11/30/22 Status: Ordered Problem List Condition Confirmation Course Effective Dates Status H ealth Status Informant Adenocarcinoma of left breast Confirmed 12/18/20 Active Memory loss Confirmed Active Antithrombin III deficiency Confirmed Active Bilateral hearing loss Confirmed Active Chronic cough Confirmed Active Chronic rhinitis Confirmed Active Depressive disorder Confirmed Active Diverticulosis of colon Confirmed Active Essential hypertension Confirmed Active GERD (gastroesophageal reflux disease) Confirmed Active Trochanteric bursitis of left hip 1 Confirmed Active Herpes zoster Confirmed Active Left hip pain Confirmed Active History of shingles Confirmed Active Hyperlipidemia Confirmed Active Osteoporosis Confirmed Active Paroxysmal atrial fibrillation Confirmed Active Paroxysmal SVT (supraventricular tachycardia) Confirmed Active Pulmonary embolism Confirmed Active Seasonal allergies Confirmed Active Lumbar spinal stenosis Confirmed Active 1steroid injection 08/07/22 Procedures Procedure Date Related Diagnosis Body Site Status Hip replacement 06/27/22 Completed Lumpectomy of left breast 02/22/21 Completed Appendectomy Completed Bunionectomy 1 Completed Colonoscopy Completed Excision of lymph node 2 Completed Tonsillectomy Completed 1right great toe 2from left neck Social History Social History Type Response Tobacco Former tobacco user Tobacco Use:. smoked less than a year when she was young socially states she did not inhale. per day. Sex Patient Care team information Care Team Personnel Name: LALITO KEANE NP Position: No Access Member Role: Primary Care Physician Address: Address: [address] [place] [id number] [place] [address] Care Team Related Persons Name: CONI HURTADO Name: KAYLAH TUCKER
--- OUTSIDE RECORDS SUMMARY | 2023-07-25 09:56 | XMS_ITS | Continuity of Care Document ---
Author Name Unknown Organization [facility] Address [address] [place] [id number] Care Team Providers Care Truck Mechanic Name Role Phone ADJOVSalvador RECEIVING COORDINATOR, LALITO Primary Care Physician Encounter LTTL_MD FIN NBR [id number] Date(s): 03/26/23 - 03/29/[address] [address] [place] Encounter Diagnosis Lumbar spinal stenosis(Discharge Diagnosis) - 03/26/23 S/P lumbar laminectomy(Discharge Diagnosis) - 03/27/23 Discharge Disposition: Home f/u Internal Provider Attending Physician: Raghu Alexis MD Admitting Physician: Raghu Alexis MD Allergies, Adverse Reactions, Alerts Substance Reaction Severity Status penicillin Skin rash Moderate Active Adhesive Bandage Rash Mild Active Functional Status 03/28/23 Activity Status ADL Up to toilet, Bathroom privileges Personal Care Provided Linen change, Underpad change 03/28/23 Lunch Percent 75 03/28/23 Breakfast Percent 0 03/28/23 Anti-Embolism Device Activity: In place Anti-Embolism Site Condition: No complic ations 03/27/23 Home Living Additional Information Pt us ed cane for mobility. Pt does not drive and son or daughter provides assitance when needed. Living Environment Home Environment Devices/Equipment at Home: Cane, Walker, Other: Raised toilet seat Performed By: Dayanara Saucedo 03/27/2023 Special Services/Community Resources: Medic Alert/Lifeline Performed By: Dayanara Saucedo 03/27/2023 Lives In: Single level home Performed By: Norah Toribio 03/26/2023 Lives With: Alone Performed By: Norah Toribio 03/26/2023 Living Situation: Home independently Performed By: Norah Toribio 03/26/2023 Lives In Split level home Lives With Alone Living Situation Home independently Patient's Responsibilities Rehab Leisure /Play/Hobbies, Social participation Home Equipment Rehab Cane Number of Stairs Inside 4 1 Number of Stairs Outside 1 Prior ADL Status Independent Prior Mobility Status Independent Prior Instrumental ADL Level Independent Prior Cognitive-Communication Skills Ind ependent 03/27/23 Home Equipment Cane, Walker, Other: Raised toilet seat Special Services and Community Resources Medic Alert/Lifeline 03/26/23 Home Barriers External stairs, Internal stairs 03/26/23 Recent Travel History No recent travel 03/26/23 Antiembolism Device Intermittent pneumat ic compression devices, knee high, bilat 1Result Comment: Pt lives in a split level home with 4 steps up and 4 steps down to finished basement. Has 1 HR. Medications aspirin 81 mg oral delayed release [...] moderate, # 40 tab, 0 Refill(s), Pharmacy: [facility], 157, cm, 03/26/23 10:26:00 EDT, [...] Confirmed Active History of shingles Confirmed Active History of migraine Confirmed Active [...] case 2right great toe 3from left neck Results Radiology Reports * Exam Date Time Procedure Performing Provider Status 03/26/23 9:52 AM XR Spine Lumbar 1 View Mariana Rodas; Pancho (Verified) Notes: (XR Spine Lumbar 1 View) Reason For Exam: lumbar laminectomy bilat L2-S1 XR Spine Lumbar 1 View EXAM DESCRIPTION: XR Spine Lumbar 1 View 03/26/2023 INDICATION: LUMBAR LAMINECTOMY BILAT L2-S1 TECHNIQUE: Intraoperative lateral view of the lumbar spine, one view COMPARISON: Routine lumbar spine series from 12/30/2020 IMPRESSION: Intraoperative localizer posterior to the S1 segment. Spondylotic changes in the lumbar region with intervertebral disc space narrowing and endplate osteophyte formation. JOB #: [id number] Final Signed by: Tony Patel MD Signed (Electronic Signature): 03/26/2023 9:59 am Vital Signs Most recent to oldest [Reference Range]: 1 2 3 Temperature Temporal Artery [36-38 Deg C] 36.8 Deg C (03/29/23 7:05 AM) 36.9 Deg C (03/29/23 4:42 AM) 37.2 Deg C (03/28/23 7:45 PM) Temperature Temporal Artery (DegF) [97.3-100 Deg F] 98.42 Deg F (03/29/23 4:42 AM) 97.88 Deg F (03/28/23 11:30 AM) 98.6 Deg F (03/28/23 5:21 AM) Peripheral Pulse Rate [60-100 bpm] 73 bpm (03/29/23 7:05 AM) 87 bpm (03/29/23 4:42 AM) 70 bpm (03/28/23 7:45 PM) Heart Rate Monitored [60-100 bpm] 66 bpm (03/26/23 10:15 AM) 68 bpm (03/26/23 10:01 AM) 65 bpm (03/26/23 9:45 AM) Respiratory Rate [12-24 br/min] 18 br/min (03/29/23 7:05 AM) 21 br/min (03/29/23 4:42 AM) 19 br/min (03/28/23 7:45 PM) Blood Pressure [90-140/60-90 mmHg] 146/73mmHg *HI* (03/29/23 7:05 AM) 159/89mmHg *HI* (03/29/23 4:42 AM) 157/77mmHg *HI* (03/28/23 7:45 PM) Mean Arterial Pressure, Cuff [65-140 mmHg] 112 mmHg (03/29/23 4:42 AM) 93 mmHg (03/28/23 11:30 AM) 108 mmHg (03/27/23 3:42 AM) Mean Arterial Pressure Cuff 91 mmHg (03/26/23 12:58 PM) 111 mmHg (03/26/23 10:01 AM) 147 mmHg (03/26/23 9:45 AM) Blood Pressure Location Right arm (03/29/23 4:42 AM) Right arm (03/28/23 4:21 PM) Blood Pressure Method Automatic (03/29/23 4:42 AM) Automatic (03/28/23 7:45 PM) Automatic (03/28/23 4:21 PM) Weight 54.000 kg (03/26/23 10:26 AM) 54.000 kg (03/20/23 4:21 PM) Weight Dosing 54.000 kg (03/26/23 10:26 AM) 54.000 kg (03/20/23 4:21 PM) Height 157.000 cm (03/26/23 10:26 AM) 157.000 cm (03/20/23 4:21 PM) Height/Length Dosing 157.000 cm (03/26/23 10:26 AM) 157.000 cm (03/20/23 4:21 PM) Body Mass Index 21.910 kg/m2 (03/26/23 10:26 AM) Social History Social History Type Response Tobacco Former tobacco user Tobacco Use:. smoked less than a year when she was young socially states she did not inhale. per day. Sex Hospital Discharge Instructions Patient Education 03/29/2023 07:04:31 Lupe Alexis - [facility] Discharge Instructions (CUSTOM) Disharge Instructions: [facility] What to Watch Out For These symptoms should cause you to call immediately or dial 911 to come to the emergency department. ??? New weakness or decreased ability to fully move your upper or lower extremities ??? Severe chest pain, difficulty breathing ??? Loss of control of your bowels and bladder The following symptoms may indicate a problem. Contact office number below. ??? Fever higher than 101 F ??? Increasing back and/or leg pain ??? Difficulty passing urine ??? New numbness or change in symptoms from before surgery ??? Redness or drainage from the incision ??? Unusual headache, especially if it is much worse when you stand up ??? Calf pain or swelling Follow up appointment: Call spine office to schedule a follow up appointment within 10-14 days after your surgery. For questions after the surgery, call [facility] at: [phone]. After hours, the answering service will respond. In the case of an emergency call 911. Medications: ??? Resume medications as prescribed Remember your Spine Precautions ??? Try to avoid bending ??? Minimize twisting ??? No Heavy Lifting??(avoid heavy lifting (use a gallon of milk, which weighs about 8 pounds, as aguide for the maximum weight that can be lifted)). ??? No Pulling/Pushing Patient Identification [address] [id number] *DCIN* DCIN Discharge Instructions [facility] Page 1 of 4 Incision Care If you have (refer to ?? section): ? Joseph/Sutures: They will be removed during your follow up visit. ? Steri- Strips: They will fall off on their own after the first week. ? If your incision is covered with gauze:?? Keep it covered until 5 days after your surgery, then you may leave it open to air if completely dry. ? Dermabond is a liquid skin adhesive that holds open wounds or incision sites together by adhering skin edges together. Ok to leave incision open to air. Do not apply any body oils, lotions ormakeup to the area surrounding the Dermabond or on the film. These products will prematurely loosenthe Dermabond film. Avoid areas that cause increase sweating (e.g. tanning beds, saunas, excess sunlight exposure, physical exertion) Shower ??? You may shower 5 days after your surgery, let water run on incision and pat dry. Do not apply lotion or soap to incision. No Baths. Showers are ok to keep incision clean, but baths, swimming, and hot tubs are off limits because of the risk of infection. It is best not to point the shower head directly at the incision, but the incision can get wet. It is good to let soapy water run over the incision but not to scrub or directly wash the incision. Activity: ??? Start daily walking program and increase each day. Taking several walks throughout the day, every few hours, is best. Short walks in the home can be helpful as well. ??? Sleeping on the side or back is recommended versus sleeping your stomach (Cervical fusion patients) ??? General rule: If it hurts you should probably refrain from that activity ??? Return to Work/School: ?? when able Click or tap here to enter text. weeks/days ?? not until follow up Additional instructions: ___ [place] [address] DCIN Discharge Instructions [facility] Page 2 of 4 Tips for taking pain medicine ?? Pain medicines can upset your stomach. Taking them with a little food may help. ?? Most pain relievers taken by mouth need at least 20 to 30 minutes to start to work. ?? Taking medicine on a schedule can help you remember to take it. Try to time your medicine so that you can take it before starting an activity. ?? Constipation is a common side effect of narcotic pain medicines. Drinking fluids and eating foods high in fiber can help. Here are some over the counter stool softeners that may also help if symptoms continue: Miralax, Colace, or Ducolax. ?? Drinking alcohol and taking pain medicine can cause dizziness and slow your breathing. It can even be deadly. Do not drink alcohol while taking pain medicine. ?? Pain medicine can make you react more slowly to things. Do not drive or run machinery while taking pain medicine. ?? If you have obstructive sleep apnea, please use home C-pap as prescribed especially after takingpain medications before naps/bedtime. ?? Try to wean off narcotic pain medication as pain decreases in severity. Tips for managing nausea- Some people have an upset stomach after surgery. This is often because ofanesthesia, pain, or pain medicine, or the stress of surgery. These tips will help you handle nausea as you get better. ?? Start off with clear liquids and soup. They are easier to digest. ?? Next try semi-solid foods, such as mashed potatoes, applesauce, and gelatin, as you feel ready. ?? Slowly move to solid foods. Try to stay away from fatty, rich, or spicy foods. ?? Do not force yourself to have 3 large meals a day. Instead eat smaller amounts more often. ?? Take pain medicines with a small amount of solid food, such as crackers or toast, to avoid nausea. Patient Identification [facility] [address] [place] [address] DCIN Discharge Instructions [facility] Page 3 of 4 Questions for your provider (please write below): I have read these instructions, and understand them as they have been explained to me. Date (Patient???s Signature) Date/Time (Discharge Nurse???s Signature) [place] [address] DCIN Discharge Instructions [facility] Page 4 of 4 Follow Up Care 03/14/2023 10:08:40 With:CHASE Kendrick Address: [address] [place] [id number] When:1 week Comments:Patient to call office for follow up. Discharge instructions * Adithya Phillips: PERFORM Event Display: Discharge Instructions Authored Date: [id number] ADELA HURTADO :1940 Age:82 years Sex:Female Visit Date:03/26/2023 Primary Care Physician: LAKHWINDER MCDONALD, [facility] Discharge Instructions We would like to thank you for allowing us to assist you with your healthcare needs. The following includes patient education materials and information regarding your injury/illness. Your Next Steps Follow Up Appointments Follow Up with??CHASE Kendrick When:??Within 1 week Why: Patient to call office for follow up. Where: [address] [place] [address] The Following Services Have Been Arranged for You Special Services and Community Resources - Medic Alert/Lifeline Medications What How Much When Instructions Next Dose New HYDROcodone-acetaminophen (HYDROcodone-acetaminophen 5 mg-325 mg oral tablet) 1 tab Oral (given by mouth) Every 6 hours as needed for pain, moderate Duration: 10 Days Pickup at [facility] Changed aspirin (aspirin 81 mg oral delayed release tablet) 1 tab Oral (given by mouth) Every day Changed valerian (Valerian Root oral capsule) 500 Milligrams Oral (given by mouth) Every night at bedtime Unchanged cyclobenzaprine (cyclobenzaprine 10 mg oral tablet) 1 tab Oral (given by mouth) 3 times a day as needed for as needed for muscle spasm Unchanged megestrol (megestrol 40 mg/ mL oral suspension) 10 Milliliters Oral (given by mouth) Daily at RT as needed for appe Unchanged melatonin (melatonin 5 mg oral tablet) 1 tab Oral (given by mouth) Every night at bedtime Unchanged multivitamin (multivitamin adult, oral tablet) 1 tab Oral (given by mouth) Every day Unchanged multivitamin with minerals (Calcium and Magnesium oral tablet) 1 tab Oral (given by mouth) Every day Unchanged Other Prescription (medical cannabis) Unchanged potassium chloride (Potassium Chloride (Eqv-K-Tab) 20 mEq oral tablet, extended release) 1 tab Oral (given by mouth) Every day Pharmacy Information [facility]: [address] [place] [id number] [phone] ?? What How Much When Comments Stop Taking traMADol (traMADol 50 mg oral tablet) 1 tab Oral (given by mouth) Every 8 hours as needed for as needed for pain Your Summary Your Care Team Admitting Physician - Reuben CLEVELAND, Raghu Hunt Attending Physician - Reuben CLEVELAND, Raghu Hunt Primary Care Physician - LAKHWINDER MCDONALD, LALITO Your Diagnosis Lumbar spinal stenosis S/P lumbar laminectomy Problems Ongoing - Any problem that you are currently receiving treatment for. Antithrombin III deficiency Arthritis Bilateral hearing loss Chronic cough Chronic rhinitis Depressive disorder Diverticulosis of colon Essential hypertension Female stress incontinence GERD (gastroesophageal reflux disease) Herpes zoster History of migraine History of shingles Hyperlipidemia Left hip pain Lumbar spinal stenosis Memory loss Numbness Osteoporosis Paroxysmal atrial fibrillation Paroxysmal SVT (supraventricular tachycardia) PONV - Postoperative nausea and vomiting Seasonal allergies Trochanteric bursitis of left hip Historical - Any problem that you are no longer receiving treatment for. Adenocarcinoma of left breast Pulmonary embolism Procedures Performed ???Laminectomy (Bilateral) (03/26/2023) Tests Performed/Pending XR Spine Lumbar 1 View Discharge Vitals Temperature??(Temporal Artery) 98.2 ??F (36.8 ??C) Heart Rate??(Peripheral) 73 Respiratory Rate?? 18 Blood Pressure?? 146/73?? Allergies penicillin??(Skin rash) Adhesive Bandage??(Rash) Education Materials Disharge Instructions: [facility] What to Watch Out For These symptoms should cause you to call immediately or dial 911 to come to the emergency department. ? New weakness or decreased ability to fully move your upper or lower extremities ? Severe chest pain, difficulty breathing ? Loss of control of your bowels and bladder The following symptoms may indicate a problem. Contact office number below. ? Fever higher than 101 F ? Increasing back and/or leg pain ? Difficulty passing urine ? New numbness or change in symptoms from before surgery ? Redness or drainage from the incision ? Unusual headache, especially if it is much worse when you stand up ? Calf pain or swelling Follow up appointment: Call spine office to schedule a follow up appointment within 10-14 days after your surgery. For questions after the surgery, call [facility] at: [phone]. After hours, the answering service will respond. In the case of an emergency call 911. ? Medications: ? Resume medications as prescribed Remember your Spine Precautions ? Try to avoid bending ? Minimize twisting ? No Heavy Lifting??(avoid heavy lifting (use a gallon of milk, which weighs about 8 pounds, as a guide for the maximum weight that can be lifted)). ? No Pulling/Pushing ? Patient Identification [address] [address] ? *DCIN* ? DCIN Discharge Instructions [facility]?? Page 1 of 4 Incision Care If you have (refer to ?? section): ? Joseph/Sutures: They will be removed during your follow up visit. ? Steri- Strips: They will fall off on their own after the first week. ? If your incision is covered with gauze:?? Keep it covered until 5 days after your surgery, thenyou may leave it open to air if completely dry. ? Dermabond is a liquid skin adhesive that holds open wounds or incision sites together by adhering skin edges together. Ok to leave incision open to air. Do not apply any body oils, lotions or makeup to the area surrounding the Dermabond or on the film. These products will prematurely loosen theDermabond film. Avoid areas that cause increase sweating (e.g. tanning beds, saunas, excess sunlight exposure, physical exertion) Shower ? You may shower 5 days after your surgery, let water run on incision and pat dry. Do not apply lotion or soap to incision. No Baths. Showers are ok to keep incision clean, but baths, swimming, and hottubs are off limits because of the risk of infection. It is best not to point the shower head directly at the incision, but the incision can get wet. It is good to let soapy water run over the incision but not to scrub or directly wash the incision. Activity: ? Start daily walking program and increase each day. Taking several walks throughout the day, every few hours, is best. Short walks in the home can be helpful as well. ? Sleeping on the side or back is recommended versus sleeping your stomach (Cervical fusion patients) ? General rule: If it hurts you should probably refrain from that activity ? Return to Work/School: ?? when able Click or tap here to enter text. weeks/days ?? not until follow up Additional instructions: ___ ? Patient Identification ? [place] [address] ? DCIN Discharge Instructions [facility] ?? Page 2 of 4 Tips for taking pain medicine ? Pain medicines can upset your stomach. Taking them with a little food may help. ? Most pain relievers taken by mouth need at least 20 to 30 minutes to start to work. ? Taking medicine on a schedule can help you remember to take it. Try to time your medicine so that you can take it before starting an activity. ? Constipation is a common side effect of narcotic pain medicines. Drinking fluids and eating foods high in fiber can help. Here are some over the counter stool softeners that may also help if symptomscontinue: Miralax, Colace, or Ducolax. ? Drinking alcohol and taking pain medicine can cause dizziness and slow your breathing. It can even be deadly. Do not drink alcohol while taking pain medicine. ? Pain medicine can make you react more slowly to things. Do not drive or run machinery while taking pain medicine. ? If you have obstructive sleep apnea, please use home C-pap as prescribed especially after taking pain medications before naps/bedtime. ? Try to wean off narcotic pain medication as pain decreases in severity. ? Tips for managing nausea- Some people have an upset stomach after surgery. This is often because ofanesthesia, pain, or pain medicine, or the stress of surgery. These tips will help you handle nausea as you get better. ? Start off with clear liquids and soup. They are easier to digest. ? Next try semi-solid foods, such as mashed potatoes, applesauce, and gelatin, as you feel ready. ? Slowly move to solid foods. Try to stay away from fatty, rich, or spicy foods. ? Do not force yourself to have 3 large meals a day. Instead eat smaller amounts more often. ? Take pain medicines with a small amount of solid food, such as crackers or toast, to avoid nausea. ? Patient Identification ? [facility] [address] [place] [address] ? DCIN Discharge Instructions [facility]?? Page 3 of 4 Questions for your provider (please write below): ? I have read these instructions, and understand them as they have been explained to me. ? Date (Patient???s Signature) Date/Time (Discharge Nurse???s Signature) ? Patient Identification ? [address] [address] ? DCIN Discharge Instructions [facility]?? Page 4 of 4 Medication Information acetaminophen and hydrocodone?? (a SEET a MIN oh fen and amari sharda DAVISWilly done) ?? Lortab, Lortab Elixir, Verdrocet? What is the most important information I should know about acetaminophen and hydrocodone? MISUSE OF OPIOID MEDICINE CAN CAUSE ADDICTION, OVERDOSE, OR .?Keep the medication in a place where others cannot get to it. ?? Taking opioid medicine during may cause life-threatening withdrawal symptoms in the . ?? Fatal side effects can occur if you use opioid medicine with alcohol, or with other drugs that cause drowsiness or slow your breathing. ?? Stop taking this medicine and call your doctor right away if you have skin redness or a rash that spreads and causes blistering and peeling.? What is acetaminophen and hydrocodone? Acetaminophen and hydrocodone is a combination medicine used to relieve moderate to severe pain. ?? Acetaminophen and hydrocodone contains an opioid medicine, and may be habit- forming. ? Acetaminophen and hydrocodone may also be used for purposes not listed in this medication guide. ?? What should I discuss with my healthcare provider before taking acetaminophen and hydrocodone? You should not use this medicine if you are allergic to acetaminophen or hydrocodone, or if you have: ?severe asthma or breathing problems; or ?a blockage in your stomach or intestines. ?? Tell your doctor if you have ever had: ?breathing problems, sleep apnea (breathing stops during sleep); ?liver disease; ?a drug or alcohol addiction; ?kidney disease; ?a head injury or seizures; ?urination problems; or ?problems with your thyroid, pancreas, or gallbladder. ?? If you use opioid medicine while you are , your baby could become dependent on the drug.?This can cause life-threatening withdrawal symptoms in the baby after it is born. Babies born dependent on opioids may need medical treatment for several weeks. ?? Ask a doctor before using opioid medicine if you are .??Tell your doctor if you noticesevere drowsiness or slow breathing in the nursing baby.? How should I take acetaminophen and hydrocodone? Follow all directions on your prescription label.??Never take this medicine in larger amounts, or for longer than prescribed. ??An overdose can damage your liver or cause .??Tell your doctor if you feel an increased urge to use more of this medicine. ?? Never share this medicine with another person, especially someone with a history of drug abuse or addiction. ??MISUSE CAN CAUSE ADDICTION, OVERDOSE, OR .?Keep the medicine in a place where others cannot get to it. ??Selling or giving away this medicine is against the law.? Measure??liquid medicine??carefully. Use the dosing syringe provided, or use a medicine dose-measuring device (not a kitchen spoon). ?? If you need surgery or medical tests, tell the doctor ahead of time that you are using this medicine.? You should not stop using this medicine suddenly.?Follow your doctor's instructions about tapering your dose. ?? Store at room temperature away from moisture and heat. Keep track of your medicine. You should be aware if anyone is using it improperly or without a prescription. ?? Do not keep leftover opioid medication.??Just one dose can cause in someone using this medicine accidentally or improperly.??Ask your pharmacist where to locate a drug take-back disposal program. If there is no take-back program, flush the unused medicine down the toilet. ?? What happens if I miss a dose? Since this medicine is used for pain, you are not likely to miss a dose. Skip any missed dose if itis almost time for your next dose.??Do not??use two doses at one time. ?? What happens if I overdose? Seek emergency medical attention or call the Poison Help line at .??An overdose of this medicine can be fatal, especially in a child or other person using the medicine without a prescription.??Overdose symptoms may include nausea, vomiting, sweating, severe drowsiness, pinpoint pupils, slow breathing, or no breathing. ?? Your doctor may recommend you get naloxone (a medicine to reverse an opioid overdose) and keep it with you at all times. A person caring for you can give the naloxone if you stop breathing or don't wake up. Your caregiver must still get emergency medical help and may need to perform CPR (cardiopulmonary resuscitation) on you while waiting for help to arrive. ?? Anyone can buy naloxone from a pharmacy or local health department. Make sure any person caring foryou knows where you keep naloxone and how to use it. ?? What should I avoid while taking acetaminophen and hydrocodone? Avoid driving or operating machinery until you know how this medicine will affect you. Dizziness ordrowsiness can cause falls, accidents, or severe injuries. ?? Do not drink alcohol.?Dangerous side effects or could occur. ?? Ask a doctor or pharmacist before using any other medicine that may contain acetaminophen (sometimes abbreviated as APAP).??Taking certain medications together can lead to a fatal overdose. ?? What are the possible side effects of acetaminophen and hydrocodone? Get emergency medical help if you have??signs of an allergic reaction:?hives; difficulty breathing; swelling of your face, lips, tongue, or throat. ?? Opioid medicine can slow or stop your breathing, and may occur.??A person caring for you should give naloxone and/or seek emergency medical attention if you have slow breathing with long pauses, blue colored lips, or if you are hard to wake up. ?? In rare cases, acetaminophen may cause a severe skin reaction that can be fatal.?This could occur even if you have taken acetaminophen in the past and had no reaction.??Stop taking this medicine and call your doctor right away if you have skin redness or a rash that spreads and causes blisteringand peeling.? Call your doctor at once if you have: ?noisy breathing, sighing, shallow breathing, breathing that stops; ?a light-headed feeling, like you might pass out; ?liver problems--nausea, upper stomach pain, tiredness, loss of appetite, dark urine, benoit-colored stools, jaundice (yellowing of the skin or eyes);?low cortisol levels-- nausea, vomiting, loss of appetite, dizziness, worsening tiredness or weakness; o ?high levels of serotonin in the body--agitation, hallucinations, fever, sweating, shivering, fast heart rate, muscle stiffness, twitching, loss of coordination, nausea, vomiting, diarrhea. ?? Serious breathing problems may be more likely in older adults and in those who are debilitated or have wasting syndrome or chronic breathing disorders. ?? Common side effects include: ?dizziness, drowsiness, feeling tired; ?nausea, vomiting, stomach pain;?constipation; or ?headache. ?? This is not a complete list of side effects and others may occur. Call your doctor for medical advice about side effects. You may report side effects to FDA at 4-277-VIW-9313. ?? What other drugs will affect acetaminophen and hydrocodone? You may have breathing problems or withdrawal symptoms if you start or stop taking certain other medicines.?Tell your doctor if you also use an antibiotic, antifungal medication, heart or blood pressure medication, seizure medication, or medicine to treat HIV or hepatitis C. ?? Opioid medication can interact with many other drugs and cause dangerous side effects or .?Be sure your doctor knows if you also use: ?cold or allergy medicines, bronchodilator asthma/COPD medication, or a diuretic ('water pill'); ?medicines for motion sickness, irritable bowel syndrome, or overactive bladder; ?other opioids--opioid pain medicine or prescription cough medicine; ?a sedative like Valium--diazepam, alprazolam, lorazepam, Xanax, Klonopin, Versed, and others; ?drugs that make you sleepy or slow your breathing--a sleeping pill, muscle relaxer, medicine totreat mood disorders or mental illness; ?drugs that affect serotonin levels in your body--a stimulant, or medicine for depression, Parkinson's disease, migraine headaches, serious infections, or nausea and vomiting. ?? This list is not complete. Other drugs may affect acetaminophen and hydrocodone, including prescription and [id number] medicines, vitamins, and herbal products.??Not all possible interactions are listed here.? Where can I get more information? Your doctor or pharmacist can provide more information about acetaminophen and hydrocodone. ?? Remember, keep this and all other medicines out of the reach of children, never share your medicines with others, and use this medication only for the indication prescribed. ?? Every effort has been made to ensure that the information provided by [employer]. ('[employer]') is accurate, up-to-date, and complete, but no guarantee is made to that effect. Drug information contained herein may be time sensitive. [employer] information has been compiled for use by healthcare practitioners and consumers in the [place] and therefore [employer] does not warrant that uses outside of the [place] are appropriate, unless specifically indicated otherwise. [employer] drug information does not endorse drugs, diagnose patients or recommend therapy. [employer] drug information isan informational resource designed to assist licensed healthcare practitioners in caring for their p atients and/or to serve consumers viewing this service as a supplement to, and not a substitute for, the expertise, skill, knowledge and judgment of healthcare practitioners. The absence of a warningfor a given drug or drug combination in no way should be construed to indicate that the drug or drug combination is safe, effective or appropriate for any given patient. [employer] does not assume any responsibility for any aspect of healthcare administered with the aid of information [employer] provides. The information contained herein is not intended to cover all possible uses, directions, precautions, warnings, drug interactions, allergic reactions, or adverse effects. If you have questions about the drugs you are taking, check with your doctor, nurse or pharmacist.? Copyright [employer]. Version: . Revision Date: 03/19/2023. ? Patient/Dowel Inserting Machine Operator Signature Patient Name:ADELA HURTADO I have received this information and my questions have been answered. Patient/Dowel Inserting Machine Operator Name: Patient/Dowel Inserting Machine Operator Signature: Relationship to Patient: Witness Name/Signature: Date: Electronically Signed on: 03/29/2023 09:22 EDTSigned by:SO Progress note * ADRIEN KendrickP: PERFORM Event Display: Progress Note - Physician Authored Date: [id number] ADELA HURTADO :1940 Age:82 years Sex:Female Visit Date:03/26/2023 Primary Care Physician: LALITO KEANE NP Anticipated Discharge Date 03/31/23 Objective Vitals & Measurements T:??36.6?C ??(Temporal Artery)?? TMIN:??36.4?C ??(Temporal Artery)?? TMAX:??37?C ??(Temporal Artery)?? HR:??74??(Peripheral)?? RR:??20?? BP:??139/70?? SpO2:??99%?? Pain Score:??3?? O2 Therapy:??Room air?? Assessment/Plan 1.??Lumbar spinal stenosis??M48.061 2.??S/P lumbar laminectomy??Z98.890 The patient is doing well overall this afternoon.?? She continues to have pain in her low back??at the site of her incision.?? She has been ambulating frequently with??her son and??states that she isnow able to stand up straighter with ambulation which she has not done in quite some time.?? She has noticed some intermittent cramping affecting the??bilateral calfs. ??Overall, the pain in her lower extremities with ambulation has improved.?? She reports that after??this last walk that she took her legs do feel somewhat weak.?? The patient lives alone and??is somewhat concerned about going home??as she does not feel quite stable on her feet.?? This does raise the concern for possible fall risk.?? The patient's surgical wound??remains dry. ??Unfortunately, the patient's surgical drain??was dislodged??unintentionally early.?? As long as there is no fluid coming out of the incision??by tomorrow morning the patient should be okay to be discharged home without a yury dressing.?? If she does d evelop any drainage out of the incisional wound, she will need a yury dressing before discharge.?? The patient will stay for 1 more night to continue working on her ambulation and strength and also to monitor her surgical wound.?? Plan for discharge home tomorrow. ??This was discussed with her son as well. Electronically Signed on 03/28/23 02:44 PM CHASE Kendrick * CHASE Kendrick: PERFORM Event Display: Progress Note - Physician Authored Date: [id number] ADELA HURTADO :1940 Age:82 years Sex:Female Visit Date:03/26/2023 Primary Care Physician: LAKHWINDER MCDONALD LALITO Anticipated Discharge Date 03/29/23 Subjective The patient is 2 days postop from her lumbar laminectomy.?She reports that her pain is primarilyin her low back.?? This has improved??somewhat the past day.?? The prescribed pain medication and muscle relaxer are??helpful. ??She continues to have intermittent pain affecting the left lateral hipparticularly if she lays on that side. ??She reports that her legs have less pain??and overall feels strong when she is ambulating.?? That also improved??over the past day. ??The patient is still feeling somewhat unsure with ambulation. Review of Systems Relevant ROS discussed in HPI Objective Vitals & Measurements T:??37?C ??(Temporal Artery)?? TMIN:??36.4?C ??(Temporal Artery)?? TMAX:??37?C ??(Temporal Artery)?? HR:??64??(Peripheral)?? RR:??18?? BP:??154/87?? SpO2:??97%?? Pain Score:??5?? O2 Therapy:??Room air?? Physical Exam General: The patient is lying in bed and is pleasant and conversant. Respiratory: Respirations are unlabored. Neurological: Full power bilateral distal lower extremities. Dermatological: The lumbar wound is flat and dry. Assessment/Plan 1.??Lumbar spinal stenosis??M48.061 2.??S/P lumbar laminectomy??Z98.890 The patient is 2 days??postop from her lumbar laminectomy.?? She continues to struggle with low back pain and the prescribed occasions to help??with this pain somewhat.?? She ??has been able to ambulate with physical therapy and nursing and overall is doing well although she does feel somewhat unsure on her feet still.?? Unfortunately, the patient's surgical drain??came out of place??the night before last or sometime early yesterday morning.?? This is much earlier than??what would be ideal.?? We will continue to monitor the patient's wound to ensure that there is no drainage through the incisional wound.?? If so, she may require a yury dressing.?? The patient will work with physical therapy??and nursing today and continue working on her ambulation.?? She will likely be discharged home tomorrow. Plan: Continue monitoring surgical wound. Continue neurological monitoring. Physical therapy. Continue??pain management. Likely discharge home tomorrow morning. Electronically Signed on 03/28/23 07:52 AM CHASE Kendrick * Melissa Julissa, PLATE FILLER-CORE MANAGER: PERFORM Event Display: Progress Note - Physician Authored Date: [id number] ADELA HURTADO :1940 Age:82 years Sex:Female Visit Date:03/26/2023 Primary Care Physician: LALITO KEANE NP Anticipated Discharge Date 03/28/23 or 03/29/23 Subjective The patient underwent bilateral lumbar laminectomy L4-5 and L5-S1 yesterday.?? This morning the patient is doing??overall quite well.?? She has very minimal low back and bilateral lower extremity pain. ??She was having some tingling in the right leg yesterday but that seems to have resolved today.?? She states that she cannot really tell??if the pain in her legs has improved??since how she felt prior to??the surgery as she has not been up to walk and that is when she typically has pain.?? She states that this morning she has had??some??sharp pain in the left??upper flank area??and has also noticed tenderness over the left lateral hip when she is laying on that side. ??The left flank pain has subsided but was quite sharp when it did occur.?? She denies any??nausea or vomiting. Review of Systems Relevant ROS discussed in HPI Objective Vitals & Measurements T:??36.4?C ??(Temporal Artery)?? TMIN:??36.2?C ??(Temporal Artery)?? TMAX:??37.2?C ??(Temporal Artery)?? HR:??72??(Peripheral)?? BP:??152/75?? SpO2:??100%?? HT:??157.000??cm?? WT:??54.000??kg?? BMI:??21.910?? Pain Score:??2?? O2 Therapy:??Room air?? Physical Exam General: The patient is lying in bed and is pleasant and conversant. Respiratory: Respirations are unlabored. Neurological: Full power bilateral distal lower extremities. Dermatological: The lumbar wound is flat and dry. The surgical drain is no longer in place. Assessment/Plan 1.??Lumbar spinal stenosis??M48.061 2.??S/P lumbar laminectomy??Z98.890 Orders: Drain Care, 03/27/23 7:53:00 EDT, Stop date 03/27/23 7:53:00 EDT, Remove ROMAN drain, already out but suture can be removed. Urinary Catheter Discontinue, 03/27/23 7:53:00 EDT The patient is 1 day postop from her lumbar laminectomy. ??She is doing quite well.?? The patient's??catheter and IV fluids will be discontinued so that she can be more mobile and work with physical therapy and nursing on ambulation today.?? The patient's surgical drain has??unfortunately come out.??We will continue to monitor the patient's wound for any drainage. ??She may??benefit from a yury dressing before discharge. Plan: Remove Dawkins catheter and discontinue IV fluids. Physical therapy today. Continue??neurologic monitoring. Continue monitoring surgical wound. Electronically Signed on 03/27/23 07:54 AM CHASE Kendrick Discharge summary * CHASE Kendrick: PERFORM Event Display: Discharge Summary Authored Date: [id number] ADELA HURTADO :1940 Age:82 years Sex:Female Visit Date:03/26/2023 Primary Care Physician: LAKHWINDER MCDONALD, [facility] The patient underwent bilateral laminectomy L4-5, L5-S1 on??03/30/2023.?? On the morning of discharge patient is doing well. ??She has minimal low back pain and the pain that she does have in the low back and the site of her incision has responded well to the prescribed pain medication.?? She is standing up straighter when she walks and her legs feel strong when she is ambulatory.?? She is able toget up to the bathroom without assistance. ??She is using a walker.?? She has been struggling with left lateral hip pain as well as intermittent cramping of the left calf which she reports is not unusual for her. ??She also states that she has known issues with her hip and will likely??be needing kenyon rgery for her left hip.?? The patient's surgical drain was??dislodged unintentionally early??however her lumbar wound is flat and dry and there is no swelling or drainage from the wound. Physical Exam Vitals & Measurements T:??36.8?C ??(Temporal Artery)?? TMIN:??36.4?C ??(Temporal Artery)?? TMAX:??37.2?C ??(Temporal Artery)?? HR:??73??(Peripheral)?? RR:??18?? BP:??146/73?? SpO2:??98%?? Pain Score:??2?? O2 Therapy:??Room air?? General: The patient is lying in bed and is pleasant and conversant. Respiratory: Respirations are unlabored. Neurological: Full power bilateral distal lower extremities. Dermatological: The lumbar wound is flat and dry. ??There is a small amount of ecchymosis surrounding the??incisional wound. Medications Inpatient cyclobenzaprine, 10 mg= 1 tab, Oral, TID, PRN docusate, 100 mg= 1 cap, Oral, Daily, PRN docusate-senna 50 mg-8.6 mg oral tablet, 2 tab, Oral, BID HYDROcodone-acetaminophen 5 mg-325 mg oral tablet, 1 tab, Oral, every 4 hr, PRN HYDROcodone-acetaminophen 5 mg-325 mg oral tablet, 2 tab, Oral, every 4 hr, PRN HYDROmorphone, 0.25 mg= 0.13 mL, IV Push, every 2 hr, PRN Milk of Magnesia 8% oral suspension, 30 mL, Oral, Daily, PRN naloxone, 0.1 mg= 0.25 mL, IV Push, every 5 min, PRN ondansetron, 4 mg= 2 mL, IV Push, every 6 hr, PRN potassium chloride, 20 mEq= 1 tab, Oral, Daily Sodium Chloride 0.45% 1,000 mL, 1000 mL, IV Home aspirin 81 mg oral delayed release tablet, [...] 500 mg, Oral, every night at bedtime Procedure/Surgical History ???Laminectomy (Bilateral) (03/26/2023)???Hip replacement (06/28/2022)???Lumpectomy of left breast ( 02/23/2021)???Appendectomy???Bunionectomy???Colonoscopy???Excision of lymph node???Tonsillectomy Social History Alcohol Current, 1-2 times per month Electronic Cigarette/Vaping Electronic Cigarette Use: Never. Home/Environment Lives with Alone. Living situation: Home/Independent. Home equipment: Cane, Walker. Substance Use Current, Marijuana, Daily- Comments: smokes Tobacco Former tobacco user Tobacco Use:. smoked less than a year when she was young socially states she did not inhale. per day. Discharge Plan 1.??Lumbar spinal stenosis??M48.061 Ordered: Discharge Patient, 03/29/23 8:05:00 EDT, Home Independently, Constant Indicator ?? 2.??S/P lumbar laminectomy??Z98.890 Ordered: Discharge Patient, 03/29/23 8:05:00 EDT, Home Independently, Constant Indicator ?? Orders: HYDROcodone-acetaminophen 5 mg-325 mg oral tablet, 1 tab, Oral, every 6 hr, PRN pain, moderate, # 40 tab, 0 Refill(s), Pharmacy: [facility], 157, cm, 03/26/23 10:26:00 EDT, Height/Length Dosing, 54, kg, 03/26/23 10:26:00 EDT, Weight Dosing The patient is doing well following her lumbar laminectomy.?? She has minimal low back pain. ??She will be sent home with a short prescription for Vicodin to take as needed for her back pain. ??She also has a previous prescription of cyclobenzaprine at home that she can also take as needed.?? The patient was??asked to keep an eye on her??clothing for any midline drainage at the site of her lumbarincision. ??She will??reach out if she does notice any drainage from the wound.?? She is instructedto participate in light activity only for now and to take frequent and short walks??at home.?Shecan shower as needed but was??advised to??submerging the lumbar wound.?? She will follow-up in the office next week. Plan: Discharge home. Follow-up??for postoperative visit next week. All Diagnoses This Visit Lumbar spinal stenosis S/P lumbar laminectomy Patient Discharge Condition Good Discharge Disposition Home Patient Education Lupe - Dr. Alexis - [facility] Discharge Instructions (CUSTOM) Follow Up With When Contact Information CHASE Kendrick Within 1 week [address] [place] [address] Additional Instructions: Medication Reconciliation New Prescription HYDROcodone-acetaminophen (HYDROcodone-acetaminophen 5 mg-325 mg oral tablet)1 tab Oral (given by mouth) every 6 hours as needed pain, moderate for 10 Days. Refills: 0. ?? Changed aspirin (aspirin 81 mg oral delayed release tablet)1 tab Oral (given by mouth) every day. ?? valerian (Valerian Root oral capsule)500 Milligrams Oral (given by mouth) every night at bedtime. ?? Unchanged cyclobenzaprine (cyclobenzaprine 10 mg oral tablet)1 tab Oral (given by mouth) 3 times a day as needed as needed for muscle spasm. ?? megestrol (megestrol 40 mg/mL oral suspension)10 Milliliters Oral (given by mouth) daily at RT as needed appe. ?? melatonin (melatonin 5 mg oral tablet)1 tab Oral (given by mouth) every night at bedtime. ?? multivitamin (multivitamin adult, oral tablet)1 tab Oral (given by mouth) every day. ?? multivitamin with minerals (Calcium and Magnesium oral tablet)1 tab Oral (given by mouth) every day. ?? Other Prescription (medical cannabis) ?? potassium chloride (Potassium Chloride (Eqv-K-Tab) 20 mEq oral tablet, extended release)1 tab Oral (given by mouth) every day. ?? Discontinued traMADol (traMADol 50 mg oral tablet)1 tab Oral (given by mouth) every 8 hours as needed as needed for pain. Electronically Signed on 03/29/23 08:06 AM CHASE Kendrick Patient Care team information Care Team Personnel Name: LALITO KEANE NP Position: No Access Member Role: Primary Care Physician Address: Address: [address] [place] [address] Care Team Related Persons Name: CONI HURTADO Address: Home Name: KAYLAH TUCKER Address: Home
--- OUTSIDE RECORDS SUMMARY | 2023-07-25 09:56 | XMS_ITS | Continuity of Care Document ---
Author Name Unknown Organization [facility] Address [address] [place] [id number] Care Team Providers Care Roller Inspector And Mender Name Role Phone AFSHINOVSalvador WRAPPING CHECKER, LALITO Primary Care Physician Encounter [facility] NBR [id number] Date(s): 03/19/23 - 03/19/[address] [address]- [place] Encounter Diagnosis Spinal stenosis, lumbar region without neurogenic claudication(Final) - Discharge Disposition: Home or Self Care Attending Physician: Raghu Alexis MD Admitting Physician: Raghu Alexis MD Referring Physician: Raghu Alexis MD Allergies, Adverse Reactions, Alerts Substance Reaction Severity Status penicillin Skin rash Moderate Active Assessment and Plan Future Appointments Medications Acidophilus Probiotic Blend 1 cap, Oral, [...] 0 Refill(s) Start Date: 03/19/23 Status: Ordered DilTIAZem (Eqv-Cardizem CD) 120 mg/24 [...] 0 Refill(s) Start Date: 11/30/22 Status: Ordered traMADol 50 mg oral tablet 50 mg = 1 tab, Oral, every 8 hr, PRN as needed for pain, 0 Refill(s) Start Date: 03/19/23 Status: Ordered Valerian Root oral capsule 500 [...] Active Paroxysmal SVT (supraventricular tachycardia) Confirmed Active Seasonal allergies Confirmed Active Lumbar spinal stenosis Confirmed Active 1steroid injection 08/07/22 Procedures Procedure Date Related Diagnosis Body Site Status Hip replacement 06/27/22 Completed Lumpectomy of left breast 02/22/21 Completed Appendectomy Completed Bunionectomy 1 Completed Colonoscopy Completed Excision of lymph node 2 Completed Tonsillectomy Completed 1right great toe 2from left neck Results Radiology Reports * Exam Date Time Procedure Performing Provider Status 03/19/23 11:35 AM MRI Spine Lumbar w/o Contrast Dewayne rcuz, Loni; Auth (Verified) Notes: (MRI Spine Lumbar w/o Contrast) Reason For Exam: Pre op MRI Spine Lumbar w/o Contrast EXAM DESCRIPTION: MRI Spine Lumbar w/o Contrast 03/19/2023 INDICATION: PRE OP TECHNIQUE: Multiplanar MRI examination of the lumbar spine utilizing T1, fat-suppressed T2 and fast STIR technique. COMPARISON: Outside facility MRI lumbar spine examination from 10/26/2021 FINDINGS: Grade 1 spondylolisthesis at L5-S1. Grade 1 anterolisthesis at L4-5. Lumbar lordosis is otherwise satisfactory. Levoscoliosis centered in the mid-upper lumbar region. Loss of intervertebral disc stature and signal intensity throughout the lumbar spine on sagittal T2 weighted images consistent with desiccation and degeneration L5-S1: Diffuse disc bulge with bilateral facet hypertrophy. No significant central stenosis with AP spinal canal diameter of 8.7 mm. Bilateral lateral recess stenosis. Significant left neural foraminal narrowing with nerve root encroachment. Moderate right neural foraminal narrowing. L4-5: Diffuse disc bulge with bilateral facet and ligamentum flavum hypertrophy. Significant relative spinal stenosis and thecal sac effacement. AP spinal canal diameter centrally measures approximally 1.6 mm. Significant bilateral lateral recess stenosis. Significant right neural foraminal narrowing with mild-moderate left neural foraminal narrowing L3-4: Mild diffuse disc bulge with bilateral facet and ligamentum flavum hypertrophy. No significant central stenosis with AP spinal canal diameter of 8.3 mm. Bilateral lateral recess stenosis with mild bilateral neural foraminal narrowing L2-3: Mild diffuse disc bulge with bilateral facet hypertrophy. No significant central stenosis with AP spinal canal diameter of 8.1 mm. Bilateral lateral recess stenosis. Moderate-severe right neural foraminal narrowing with mild left neural foraminal narrowing L1-2: Mild diffuse disc bulge with bilateral facet hypertrophy. No significant spinal stenosis with AP spinal canal diameter of 9.7 mm. Moderate-severe right neural foraminal narrowing with moderate left neural foraminal narrowing No significant stenosis in the visualized lower thoracic spine with posterior disc bulges at several levels. Bilateral neural foraminal narrowing at T10-11 with left neural foraminal narrowing at T11-12 secondary to diffuse disc bulges. The conus is normal in morphology and signal intensity and terminates at the L1 level. No suspicious focal marrow lesions. Degenerative endplate changes and small Schmorl's nodes at some levels. No vertebral body compression deformity in the lumbar region Fluid signal intensity left renal lesions most consistent with cysts. Paraspinal soft tissues are otherwise unremarkable. IMPRESSION: Multilevel spondylotic changes. Significant relative spinal stenosis with near complete thecal sac effacement at L4-5 with significant bilateral lateral recess stenosis at L4-5. Neural foraminal narrowing noted at several levels. Please see above discussion for individual level description. Normal conus JOB #: [id number] Final Signed by: Tony Patel MD Signed (Electronic Signature): 03/19/2023 11:53 am Social History Social History Type Response Tobacco Former tobacco user Tobacco Use:. smoked less than a year when she was young socially states she did not inhale. per day. Sex Patient Care team information Care Team Personnel Name: LALITO KEANE NP Position: No Access Member Role: Primary Care Physician Address: Address: [address] [place] [address] Care Team Related Persons Name: CONI HURTADO Address: Home Name: KAYLAH TUCKER Address: Home
--- OUTSIDE RECORDS SUMMARY | 2023-07-25 09:56 | XMS_ITS | Continuity of Care Document ---
Author Name Unknown Organization [facility] Ambulatory [facility] Address [address] [place] [address] Care Team Providers Care Special Agent Secret Service Name Role Phone LAKHWINDER MCDONALD, LALITO Primary Care Physician Encounter [facility] NBR [id number] Date(s): 03/08/23 - 03/08/23 [facility] Ambulatory Clinics [address] [place] [address]- Discharge Disposition: Home Allergies, Adverse Reactions, Alerts [...] Member Role: Primary Care Physician Address: Address: [address] [place] [id number] [place] [address] Care Team Related Persons Name: CONI HURTADO Name: KAYLAH TUCKER
--- OUTSIDE RECORDS SUMMARY | 2023-07-25 09:56 | XMS_ITS | Continuity of Care Document ---
Author Name Unknown Organization [facility] Ambulatory Clinics Address [address] [place] [address] Care Team Providers Care Car Pick Up Driver Name Role Phone ADJLALITO HASSAN NP Primary Care Physician Encounter [facility] NBR [id number] Date(s): 11/30/22 - 11/30/22 [facility] Ambulatory Clinics [address] [place], [place] [address] Encounter Diagnosis Spinal stenosis, lumbar region with neurogenic claudication(Discharge Diagnosis) - 11/30/22 Left hip pain(Discharge Diagnosis) - 11/30/22 Spinal stenosis, lumbar region with neurogenic claudication(Final) - Pain in left hip(Final) - Discharge Disposition: Home or Self Care Attending Physician: Melissa Costa APRN-SARAH Allergies, Adverse Reactions, Alerts Substance Reaction Severity Status penicillin Skin rash Moderate Active Functional Status 11/30/22 Other exposure to Infectious Disease Non e Medications Acidophilus Probiotic Blend 1 cap, Oral, [...] Completed 1right great toe 2from left neck Vital Signs Most recent to oldest [Reference Range]: 1 Temperature Tympanic [36.6-37.9 Deg C] 3 6.6 Deg C (11/30/22 11:55 AM) Peripheral Pulse Rate [60-100 bpm] 70 bp m (11/30/22 11:55 AM) Respiratory Rate [12-24 br/min] 18 br/mi n (11/30/22 11:55 AM) Blood Pressure [90-140/60-90 mmHg] 120/7 8mmHg (11/30/22 11:55 AM) Weight 58.96 kg (11/30/22 11:55 AM) Weight Measured (lbs) 129.984 lb (11/30/22 11:55 AM) [place] Body Weight Calculated 49.665 kg (11/30/22 11:55 AM) Height 157 cm (11/30/22 11:55 AM) Height/Length Measured (inches) 61.81 in (11/30/22 11:55 AM) BSA Measured 1.6 m2 (11/30/22 11:55 AM) Body Mass Index 23.92 kg/m2 (11/30/22 11:55 AM) Social History Social History Type Response Tobacco Former tobacco user Tobacco Use:. smoked less than a year when she was young socially states she did not inhale. per day. Sex Physician Outpatient Note * Melissa Costa APRN-SARAH: PERFORM Event Display: Office Clinic Note Physician Authored Date: [id number] ADELA HURTADO :1940 Age:82 years Sex:Female Visit Date:11/30/2022 Primary Care Physician: LAKHWINDER MCDONALD, LALITO Chief Complaint New Referral - Lumbar & Hip Pain Additional Information PT stopped in late Aug 2022, does daily stretching every morning. ??[facility]. ??Years ago had acupuncture tx. MRI at [facility] spring. Seen at [facility] spin clinic had an injection early winter History of Present Illness The patient presents to the spine center accompanied by her daughter Marilyn for evaluation of her low back and bilateral leg pain.?? The patient reports that she is struggled with years of back and leg pain but about a year ago this became much worse.?? She reports that it was around that time that she??really??struggled with walking.?? At this point the patient reports that she really cannot walk. ??She is able to walk short distances around her home but has to hold onto the munoz or furniturefor support. ??She lives alone.?? She reports that when she walks she has significant pain that affects the left low back as well as the bilateral legs.?? The pain in her legs is primarily??in the posterior thighs but at times the calfs as well.?? She also has quite a bit of left hip pain. ??The patient had a right hip replacement last year with Dr. Oviedo??with significant relief in her right hip pain. ??The pain in her left hip is similar and she states that they are planning on replacing that hip as well but wanted to??evaluation of her lumbar spine issue first.?? The patient reports that at times her legs feel heavy and weak. ??She walks very hunched over.?? She also has significant pain if she sits or lays in bed for a prolonged period of time.?? She does have a reclining developedand sitting in a slightly reclined position seems to help.?? The patient does have a low back bracewhich she wears sometimes with activity for example when she tries to do housework and that provides some relief.?? Heat??is comforting but only provides temporary comfort. ??She applies Biofreeze toher back and legs which again provides temporary relief.?? She takes ibuprofen and Tylenol but doesnot find that helpful.?? Patient has completed physical therapy both for her hip and low back issuebut unfortunately this aggravated her back pain and she was not able to participate well.?? This was eventually stopped. ?? Review of Systems Relevant ROS discussed in HPI Physical Exam Vitals & Measurements T:??36.6?C ??(Tympanic)?? HR:??70??(Peripheral)?? RR:??18?? BP:??120/78?? SpO2:??98%?? HT:??157??cm?? WT:??58.96??kg?? BMI:??23.92?? BSA:??1.6?? GENERAL:?General Appearance:?pleasant, age appropriate, appears uncomfortable frequently and is changing positions frequently. MUSCULOSKELETAL:?Musculoskeletal:??No lumbar spine,??lumbar paraspinal muscle,??bilateral SI joint or bilateral greater trochanteric bursa tenderness.?? NEUROLOGICAL:?Neurological:?? Negative straight leg bilaterally from a seated position. ?Motor:?Strength 5/5 with bilateral hip flexion, knee flexion and extension, ankle dorsiflexion and plantar flexion.?Reflexes:?2+ and symmetric in biceps and??knees bilaterally.?? 1+??bilateral tricep and brachioradialis jerks.?? Unable to elicit bilateral ankle jerks. ??Negative Simona's bilaterally. ? Tone: normal? Gait:??Significantly bent forward and slow.?? Assessment/Plan 1.??Spinal stenosis, lumbar region with neurogenic claudication??M48.062 2.??Left hip pain??M25.552 The patient has been struggling with years of increasing low back and lower extremity pain that became much worse about a year ago.?? She can no longer walk??any significant dizziness other than veryshort distances in her home while holding onto the munoz or furniture.?? She cannot stand up straight??when she walks.?? The patient has severe lumbar spinal stenosis at multiple levels.?? This seems??most significant??from L2-L5.?? The patient has a known left hip issue as well.?? The patient would very likely benefit from lumbar laminectomy.?? The nature of the surgery??including the risks of infection, bleeding, nerve injury and paralysis were discussed at length. ??The nature of postoperative recovery was discussed at length.?? The patient currently lives alone so it was discussed with her daughter that it would be beneficial to have a family member or close friends stay with the patient upon discharge. ??The patient and her daughter report that overall she is quite healthy. ??They report that she recently had lab work which they have brought with him today and there were no significant abnormalities. ??She denies any issues with her heart??or lungs.?? The patient??would like to move forward with a surgical correction for her problem.?? Is explained to patient that I will reviewher imaging and symptoms with Dr. Alexis upon his return early next week we will reach out to proceed with scheduling surgery.?? The patient and her daughter are requesting that??Marilyn is called??to discuss scheduling??as she will need to coordinate between her and her brother.?? In reviewing thepatient's medical records,??it is listed that she has a history of??atrial fibrillation, SVT as well as a PE.?? In addition to PCP clearance patient will also need cardiology clearance for surgery. Plan: I will??review??this patient's imaging and symptoms with Dr. Alexis upon his return next week. We will likely proceed with scheduling multilevel lumbar laminectomy. ??The patient will need PCP clearance. 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 Chronic cough Chronic rhinitis Depressive disorder Diverticulosis of colon Essential hypertension GERD (gastroesophageal reflux disease) Herpes zoster History of shingles Hyperlipidemia Left hip pain Lumbar spinal stenosis Memory loss Osteoporosis Paroxysmal atrial fibrillation Paroxysmal SVT (supraventricular tachycardia) Pulmonary embolism Seasonal allergies Trochanteric bursitis of left hip Historical No qualifying data Procedure/Surgical History ???Hip replacement (06/28/2022)???Lumpectomy of left breast (02/23/2021)???Appendectomy???Bunionectomy???Colonoscopy???Excision of lymph node???Tonsillectomy Medications Acidophilus Probiotic Blend, 1 cap, Oral, Daily aspirin 325 mg oral delayed release tablet, 325 mg= 1 tab, Oral, Daily Calcium and Magnesium oral tablet, 1 tab, Oral, Daily DilTIAZem (Eqv-Cardizem CD) 120 mg/24 hours oral capsule, extended release, 120 mg= 1 cap, Oral, Daily hydroCHLOROthiazide 12.5 mg oral tablet, 12.5 mg= 1 tab, Oral, Daily losartan 50 mg oral tablet, 50 mg= 1 tab, Oral, Daily megestrol 40 mg/mL oral suspension, 400 mg= 10 mL, Oral, Daily RT multivitamin adult, oral tablet, 1 tab, Oral, Daily Potassium Chloride (Eqv-K-Tab) 20 mEq oral tablet, extended release, 20 mEq= 1 tab, Oral, Daily Valerian Root oral capsule, 500 mg, Oral, Daily Allergies penicillin??(Skin rash) Social History Alcohol Current, 1-2 times per month Electronic Cigarette/Vaping Electronic Cigarette Use: Never. Substance Use Marijuana- Comments: smokes Tobacco Former tobacco user Tobacco Use:. smoked less than a year when she was young socially states she did not inhale. per day. Diagnostic Results Diagnostic Study Interpretation: MRI of the lumbar spine from October 2021 was reviewed with the patient and her daughter.?? There is??significant degeneration and spondylotic changes??throughout the??lower thoracic and lumbar spine.?? The most significant finding is at L3-4 where there is a diffuse disc bulge??with superimposed left ??sided disc extrusion??as well as bilateral facet and ligamentum flavum hypertrophy??causing??severe??central stenosis and bilateral lateral recess stenosis that is worse on the left.?? At L4-5 there is a diffuse disc bulge and??bilateral facet??and ligamentum flavum hypertrophy causing severe central stenosis and mild bilateral neuroforaminal narrowing.?? At L2-3 there is a diffuse disc bulge??and bilateral facet and ligamentum flavum hypertrophy causing moderate to severe central stenosis??as well as bilateral neuroforaminal narrowing that is worse on the??right.?? At L1-2 there is??a diffuse disc bulge causing??moderate central stenosis and mild??bilateral lateral recess and neuroforaminal narrowing that is slightly worse on the right side.?? At L5-S1 there is a diffuse disc bulge andbilateral facet and ligamentum flavum hypertrophy causing moderate central stenosis. Electronically Signed on 11/30/22 01:25 PM Melissa Costa APRN-SARAH Patient Care team information Care Team Personnel Name: LALITO KEANE NP Position: No Access Member Role: Primary Care Physician Address: Address: [address] [place] [id number]- Care Team Related Persons Name: CONI HURTADO Name: KAYLAH TUCKER
--- OUTSIDE RECORDS SUMMARY | 2023-07-25 09:56 | XMS_ITS | Continuity of Care Document ---
Author Name Unknown Organization [facility] Ambulatory [facility] Address [address] [place] [address] Care Team Providers Care Hybrid Car Mechanic Name Role Phone ADJMO MCDONALD, LALITO Primary Care Physician Encounter [facility] NBR [id number] Date(s): 04/03/23 - 04/03/23 [facility]ulatory [facility] [address] [place], [place] [address] Encounter Diagnosis S/P lumbar laminectomy(Discharge Diagnosis) - 04/03/23 Discharge Disposition: Home or Self Care Attending Physician: CHASE Kendrick Allergies, Adverse Reactions, Alerts Substance Reaction Severity [...] moderate, # 40 tab, 0 Refill(s), Pharmacy: [facility], 157, cm, 03/26/23 10:26:00 EDT, Height/Length [...] day. Sex Physician Outpatient Note * Melissa Julissa, TECHNICAL SALES CONSULTANT-CAMPUS WELLNESS COORDINATOR: PERFORM Event Display: Office Clinic Note Physician Authored Date: [id number] ADELA HURTADO :1940 Age:82 years Sex:Female Visit Date:04/03/2023 Primary Care Physician: LALITO KEANE NP History of Present Illness The patient presents for??her 1 week??postop visit. ??She underwent??bilateral laminectomy L4-5, L5-S1??last week.?? Overall, she states that she is doing well. ??She does have some pain??at the small of her low back at the site of her incision.?? She states that she is standing up straighter??after the surgery.?? She reports that she was having some discomfort in the bilateral anterior hips??that she??relates to standing up straighter after years of??being bent forward.?? She continues struggle with left hip pain but has a known left??hip issue. ??She also has continued cramping of her left calf which is a chronic issue for her as well and responds well to wearing her compression stocking.?? Otherwise, she denies any??new radicular pain in the lower extremities and denies any paresthesias or weakness of the lower extremities. ??She is walking without difficulty and is able to get around her home??without any problems.?? She did go for a walk??down her driveway and across the street??recently and??felt good.?? She is only taking the hydrocodone for??the pain if it is really bothersome but otherwise is just taking Tylenol or Excedrin as needed with good effect. Review of Systems Relevant ROS discussed in HPI Physical Exam GENERAL:?General Appearance:?pleasant, age appropriate in no apparent distress.?? NEUROLOGICAL:?Motor:?Motor:?Strength 5/5 with bilateral hip flexion, knee flexion and extension, ankle dorsiflexion and plantar flexion.? Gait: Normal? SKIN: ?Wound: The lumbar wound is flat and dry. Assessment/Plan 1.??S/P lumbar laminectomy??Z98.890 The patient is doing well 1 week postop from her lumbar laminectomy. ??She has some pain??at the site of her incision but??she was reassured that this is expected and will continue to improve.?? She is standing up straighter??now and she is very happy with this.?? We discussed her activity moving forward and she can slowly start increasing her activity as her back pain subsides.?? She can to continue taking the hydrocodone as needed for severe pain. ??She states that she has plenty left and does not need a refill.?? She was advised to continue monitoring her lumbar wound and if she does notice any drainage coming from the incisional wound that she should??call. Plan: Follow-up for 1 month postoperative visit. Problem List/Past Medical History Ongoing Antithrombin III [...] not inhale. per day. Electronically Signed on 04/03/23 01:28 PM CHASE Kendrick Patient Care team information Care Team Personnel Name: LALITO KEANE NP Position: No Access Member Role: Primary Care Physician Address: Address: [address] [place] [id number] [place] [address] Care Team Related Persons Name: CONI HURTADO Address: Home Name: KAYLAH TUCKER Address: Home
--- OUTSIDE RECORDS SUMMARY | 2023-07-25 09:56 | XMS_ITS | Continuity of Care Document ---
Author Name Unknown Organization [facility] Ambulatory Clinics Address [address] [place] [address] Care Team Providers Care Groundman Name Role Phone LALITO KEANE NP Primary Care Physician Encounter [facility] NBR [id number] Date(s): 03/01/23 - 03/01/23 [facility] Ambulatory Clinics [address] [place], [place] [address] Discharge Disposition: Home Allergies, Adverse Reactions, Alerts [...] Member Role: Primary Care Physician Address: Address: [address] [place] [address] Care Team Related Persons Name: CONI HURTADO Name: KAYLAH TUCKER
--- OUTSIDE RECORDS SUMMARY | 2023-07-25 09:56 | XMS_ITS | Continuity of Care Document ---
Author Name Unknown Organization [facility] Address [address] [place] [id number] Care Team Providers Care Certified Medical Transcriptionist Name Role Phone LAKHWINDER MCDONALD, LALITO Primary Care Physician Encounter [facility] NBR [id number] Date(s): 03/06/23 - 03/06/[address] [address]- Encounter Diagnosis Pre-op testing(Discharge Diagnosis) - 03/06/23 Encounter for preprocedural laboratory examination(Final) - Spinal stenosis, lumbar region without neurogenic claudication(Final) - Discharge Disposition: Home or Self Care Attending Physician: Raghu Alexis MD Admitting Physician: Raghu Alexis MD Referring Physician: LALITO KEANE NP Allergies, Adverse Reactions, Alerts Substance Reaction Severity Status penicillin Skin rash Moderate Active Medications Acidophilus Probiotic Blend 1 cap, Oral, [...] 1right great toe 2from left neck Results Laboratory List Name Date Basic Metabolic Panel 03/06/23 CBC w/ Diff 03/06/23 Automated Diff 03/06/23 Most recent to oldest [Reference Range]: 1 WBC [4.8-10.8 K/mcL] 7.8 K/mcL (03/06/23 11:17 AM) RBC [4.20-5.40 Million/mcL] 3.72 Million /mcL *LOW* (03/06/23 11:17 AM) Neutro Auto [42.2-75.2 %] 60.3 % (03/06/23 11:17 AM) Lymph Auto [20.5-51.1 %] 30.6 % (03/06/23 11:17 AM) Caribou Auto [1.7-9.3 %] 7.3 % (03/06/23 AM) Basophil Auto [0.0-0.8 %] 0.4 % (03/06/23: AM) BUN [8-26 mg/dL] 19 mg/dL (03/06/23 AM) Glucose Level [74-106 mg/dL] 88 mg/dL (03/06/23 AM) Potassium Level [3.5-5.1 mmol/L] 3.3 mmo l/L *LOW* (03/06/23 AM) Baso Absolute [0.0-0.2 K/mcL] 0.0 K/mcL (03/06/23 AM) MCV [81.0-99.0 fL] 96.8 fL (03/06/23 AM) MCHC [32.0-36.0 g/dL] 34.4 g/dL (03/06/23 AM) Osmolality [275-295 mOsm/kg] 272 mOsm/kg *LOW* (03/06/23 AM) Sodium Level [134-143 mmol/L] 135 mmol/L (03/06/23 AM) Lymph Absolute [1.2-3.4 K/mcL] 2.4 K/mcL (03/06/23: AM) Hct [37.0-47.0 %] 36.0 % *LOW* (03/06/23 AM) Calcium Level [8.9-10.3 mg/dL] 9.5 mg/dL (03/06/23:17 AM) Caribou Absolute [0.1-0.6 K/mcL] 0.6 K/mcL (03/06/23: AM) MCH [27.0-31.0 pg] 33.3 pg *HI* (03/06/23 AM) Neutro Absolute [1.4-6.5 K/mcL] 4.7 K/mc L (03/06/23:17 AM) Hgb [12.0-16.0 g/dL] 12.4 g/dL (03/06/23 11:17 AM) MPV [7.4-10.4 fL] 8.1 fL (03/06/23 11:17 AM) Platelets [130-400 K/mcL] 257 K/mcL (03/06/23 11:17 AM) CO2 [22-32 mmol/L] 21 mmol/L *LOW* (03/06/23 11:17 AM) Eos Absolute [0.0-0.2 K/mcL] 0.1 K/mcL (03/06/23 11:17 AM) Chloride Level [98-111 mmol/L] 107 mmol/ L (03/06/23 11:17 AM) RDW-CV [11.5-14.5 %] 12.3 % (03/06/23 11:17 AM) BUN/Creat Ratio [8.0-20.0] 29.7 *HI* (03/06/23 11:17 AM) Imm Gran Absolute 0.05 *NA* (03/06/23 11:17 AM) Imm Gran Auto [0.0-0.5 %] 0.6 % *HI* (03/06/23 11:17 AM) Slide Review Not Indicated (03/06/23 11:17 AM) Creatinine Level [0.44-1.00 mg/dL] 0.64 mg/dL (03/06/23 11:17 AM) Anion Gap [3.0-12.0] 7.0 (03/06/23 11:17 AM) Eos, Auto [0.00-3.00 %] 0.80 % (03/06/23 11:17 AM) eGFR CKD-EPI [>=60 mL/min/1.73 m2] 87 mL /min/1.73 m2 (03/06/23 11:17 AM) Social History Social History Type Response Tobacco Former tobacco user Tobacco Use:. smoked less than a year when she was young socially states she did not inhale. per day. Sex Patient Care team information Care Team Personnel Name: LALITO KEANE NP Position: No Access Member Role: Primary Care Physician Address: Address: [address] [place] [address] Care Team Related Persons Name: CONI HURTADO Name: KAYLAH TUCKER
--- OUTSIDE RECORDS SUMMARY | 2023-07-25 09:56 | XMS_ITS | Continuity of Care Document ---
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 per day. Sex Cardiology Progress note * Event Display: Cardiology Progress Note Physician Outpatient Note * Raghu Alexis MD: PERFORM Event Display: Office Clinic Note Physician Authored Date: [id number] ADELA HURTADO :1940 Age:82 years Sex:Female Visit Date:03/06/2023 Primary Care Physician: LALITO KEANE NP History of Present Illness The patient is here for preoperative evaluation for her spinal stenosis in the lumbar region.?? Thehistory was reviewed. ??The patient has a very difficult time walking. ??She even has a hard time getting from room to room at the house because of discomfort that comes on??into the lower extremities predominantly on the left side.?? This has been a progressive problem over the years.?? She is notable to walk any distance.?? She had an MRI back in October 2021 that showed severe spinal stenosis due to her lumbar spondylosis.?? The symptoms are only??progressive they have not really changed in character. Physical Exam The patient is alert and pleasant.?? She gives a good history and this was augmented with her son who is present. The chest was clear. The heart had a regular rate and rhythm no murmurs. Assessment/Plan 1.??Lumbar spinal stenosis??M48.061 The patient has lumbar stenosis with neurogenic claudication and a radicular component.?? The stenosis is severe at several levels.?? There is a high probability that her capacity to walk will improve. ??Bilateral lumbar laminectomy.?? The nature of lumbar laminectomy was explained to the patient and her son.?? Its limitations were also??discussed??along with the need for further surgery.?? They were directed to the spine universe website where they could read more about this. ??They??did seem to have a good understanding of the procedure??after the discussion. ??The postoperative course and possible need for rehab was discussed.?? The MRI is over a-year-old and will need to be updated??to make sure that??no other areas or procedure need to be added??to the plan. ?? Plan: MRI lumbar spine Bilateral laminectomy??L2-3, L3-4, L4-5 and L5-S1 with foraminotomies left side L5-S1 Orders: Basic Metabolic Panel, Blood, Routine, 03/06/23 10:12:00 EDT, Once, Nurse collect, Pre-op testing CBC w/ Diff, Blood, Routine, 03/06/23 10:11:00 EDT, Once, Nurse collect, Pre-op testing Problem List/Past Medical History Ongoing Adenocarcinoma of [...] Interpretation: MRI of the lumbar spine from 2019 to October??reveals severe spinal stenosis??at the??L3-4??L4-5 and to a lesser degree at the L5-S1 and??L2-3 levels.?? There is mild spinal stenosis at the L1-2 level.?? There are multiple areas where the??foramen are narrowed but it seems to be worst at the L5-S1 onthe left.?? The joint spaces??are hypertrophic??at multiple levels.?? The disc spaces are collapsed. Electronically Signed on 03/06/23 11:18 AM Reuben CLEVELAND, Raghu Hunt Patient Care team information Care Team Personnel Name: LAKHWINDER MCDONALD, LALITO Position: No Access Member Role: Primary Care Physician Address: Address: [address] [place] [address] Care Team Related Persons Name: CONI HURTADO Name: KAYLAH TUCKER
--- NOTE | 2023-07-25 10:16 | W.ANESPOSTOP ---
Postoperative Evaluation Date, Time and Location Date Performed: 07/25/23 Time Performed: 09:40 Patient Location: PACU Vital Signs Most Recent Imported Vital Signs: Most Recent Vital Signs Temp Pulse Resp BP Pulse Ox 36.4 C L 55 L 14 152/77 H 98 07/25/23 10:00 07/25/23 10:00 07/25/23 10:00 07/25/23 10:00 07/25/23 10:00 Pain Score Most Recent Pain Score: Most Recent Pain Score Pain Level 3 07/25/23 0940 Assessment Mental Status: Awake (Alert & Oriented to Patient Baseline) Airway and Respiratory Function: Patent airway with normal (patient baseline) respiratory exam Cardiovascular Function: Hemodynamically Stable Hydration Status: Adequately Hydrated Nausea & Vomiting: No Nausea or Vomiting Pain: Pain is tolerable per patient Peripheral Nerve Block: Patient did not receive a nerve block
[2023-07-25] MEDS: ceFAZolin 1 GM/50 ML BAG IVPB ×2 (12:08→20:15)
[2023-07-25] MEDS: Aspirin E.C. 325 MG TABEC PO (12:09)
[2023-07-25] MEDS: oxyCODONE 5 MG TAB PO (12:09)
--- NOTE | 2023-07-25 12:19 | W.PM.OP ---
Date of service: 07/25/23 Time of Service: 07:40 Operative Note Operative Note DATE OF PROCEDURE: 07/25/23 PRE-OP DIAGNOSIS: Left Hip Osteoarthritis POST-OP DIAGNOSIS: same PROCEDURE: Left Anterior Total Hip Arthroplasty with Intraoperative Navigation SURGEON: Chris Oviedo ACID CONCENTRATOR: Alejandro Ochoa ANESTHESIA TYPE: Spinal Refer to Anesthesia Record ESTIMATED BLOOD LOSS: 100 PATHOLOGY: none sent TOURNIQUET TIME: 0 COMPLICATIONS: None Patient was transported to: PACU Patient's condition: stable Implants: 1. Depuy Alston Acetabular Component, 54mm 2. Depuy Acetabular Liner, [id number] 3. Depuy Corail Standard 125 Collared Femoral Stem, Size 12 4. Depuy Altrx Ceramic Femoral Head, Size 36+1.5mm Indications: I have seen Leti in clinic for symptoms of hip arthritis, confirmed with radiographic findings. SHe has exhausted nonoperative methods and was having significant limitations in daily function and desired better function and less pain. I discussed the technical details of a hip replacement. I explained the risks of the procedure to include, but not limited to, bleeding, infection, pain, stiffness, fracture, damage to nerves and vessels, damage to muscles and tendons, loosening, instability, leg length inequality, need for repeat procedure, blood clot and cardiopulmonary demise. Despite these risks, Leti elected to proceed. Findings: There was arthritic change throughout the left hip involving both the acetabulum and the femoral head. Procedure Description: Leti was greeted in the preoperative holding area where the correct side was identified and marked. The consent was reviewed with the patient and signed. The history and physical was updated. All questions were answered. She was taken back to the operating room. A general anesthestic was then administered. The feet were wrapped with cast padding and Coban and then placed into the boot liners and then into the boots. Care was taken to protect the skin and make sure the heels were fully down and the boots were stable. The patient was then positioned onto the HANA table. Both legs were held in a neutral position. SCDs were applied. The patient was then slid down onto a peroneal post. Prophylactic antibiotics in the form of Cefazolin were administered. 1g of Tranxemic Acid was given intravenously within 30 minutes of incision. The left leg was then prepped with Chloraprep and draped in a standard fashion. A second prep with Chloraprep was performed prior to placement of a shower-curtain type drape with Iodine impregnated skin protection. A timeout to confirm correct identity, side and site, procedure, allergies, anesthesia, and medical concerns was performed. An obliquely oriented incision was made starting lateral to the ASIS and running distal over the Tensor Fascia Cuca (TFL) muscle belly toward the fibular head, approximately 10cm. The skin and soft tissue was dissected sharply, through Migel?s fascia, and to the fascia of the TFL. With the fascia and superior border of the IT band identified, the fascia was incised with a new knife just above any perforators from the IT band. The TFL muscle belly was bluntly dissected away from the fascia and moved laterally. The fat between TFL and rectus was identified to ensure the dissection was not within the TFL. Blunt dissection created space between abductors and the capsule and retractor was placed over the lateral femoral neck. The fibers of the rectus femoris tendon were identified and these were freed from the anterior capsule. A second cobra retractor was placed around the medial femoral neck. The TFL was further retracted laterally to show the deep fascia. Careful dissection through this layer identified three main crossing vessels of the lateral femoral circumflex. These were cauterized in multiple locations and then cut without any noticeable bleeding. The TFL was further released bluntly from the deep fascia to expose anterior hip capsule and fat The Elliot orthopaedic retractor was then placed beneath the TFL and against sartorius and medial soft tissues to protect and retract the soft tissues. A T-capsulotomy was then performed starting at the superior lateral acetabulum and moving distally to the intertrochanteric ridge. These capsular flaps were tagged with a No. 1 Ethibond and elevated from within. The capsular flaps were released to the shoulder of the lateral neck and to the lesser trochanter to give excellent visualization of the proximal femur. A neck osteotomy was performed using an oscillating saw based on preoperative templates. This cut started in the shoulder and of the lateral neck and exited medially. The saw was at all times directed medially to avoid injury to the greater trochanter. Gross traction was applied to the leg and the osteotomy opened. The femoral head was removed with a corkscrew, making sure to protect the TFL on its exit. Traction was released after head removal. This was measured on the back table to determine the starting reamer size. Portions of the rectus obscuring visualization were minimally elevated off the superior acetabulum. An anterior retractor was placed over the anterior wall between capsule and labrum and attached to the Gripper retraction system. The femur was rotated to 90 degrees and medial capsule was fully released until the lesser trochanter was palpable and visible; the femur was returned to 30 degrees. A posterior retractor was placed similarly between capsule and labrum. This provided excellent visualization. The contents of the cotyloid fossa were removed with electrocautery and the labrum was removed with a knife. There was significant chondromalacia of the superior acetabulum. Acetabular reaming began with a 48mm reamer. This first reaming was directed anterior to posterior and medial to get down to the true floor. This was inspected and reamed until the true floor was reached. The anterior retractor was then released and entry and exit was provided by traction on the capsular flaps. I then reamed sequentially up to a 54mm reamer where good fit was obtained. The larger reamers were oriented based on anatomical reference of the anterior and lateral munoz to ensure proper abduction and anteversion. Positioning and size was confirmed with the fluoroscopy. A 54mm Depuy Alston acetabular component was selected. The acetabulum was reamed around the periphery with the selected acetabular size to prevent a rim fit. The deep tissues were irrigated. The acetabular component was then impacted in a position of about 40-45 degrees of abduction and 15-20 degrees of anteversion, using the patient?s anatomy as the ultimate landmark. Fluoroscopy was used to confirm this. There was excellent diesel powerplant supervisor of the acetabular component and the inserting handle was removed. The acetabular liner, Depuy [id number] polyethylene liner, was inserted and lined up with the tines of the acetabular component. There was no soft tissue interposition. The liner was then impacted into position and confirmed to be well-seated. A portion of the ron-articular cocktail was then injected around the acetabulum into the capsule and periosteum. This cocktail consisted of 123mg of Ropivacaine, 0.25mg of Epinephrine, 0.04mg of Clonidine, and 15mg of Ketorolac, diluted to 50cc. The leg was rotated to 120 degrees. Any remaining medial capsule was released until the lesser trochanter was easily palpable. A retractor was placed medially. The lateral capsule was further released into the shoulder to allow access to the greater trochanter. A Esqueda retractor was placed over the greater trochanter which allowed the trochanter to flip in front of the capsule for excellent exposure. The leg was brought down into maximal extension and 20 degrees of adduction while ensuring there was no impingement on the acetabulum. Any remnant capsule within the trochanter was released. Piriformis and obturator externis were identified and protected. There was excellent access to the proximal femur. The lateral neck remnant was removed with a rongeur. A blunt canal probe was used to identify the canal and trajectory for later broaching. A box osteotome initiated the broach course. A small curved rasp and a curved curette were used to work laterally. Broaching then began with a size 8 Corail broach. This was inserted manually around the trochanter and into the canal before mallet blows. The broach was seated to a few millimeters below the cut level based on the neck cut and the preoperative template. Sequential broaching was continued with the [employer] pneumatic broaching device until a tight fit was obtained with good rotational control of the femur. A trial short neck was inserted along with a +5 trial head. The leg was brought out of extension and adduction and then reduced with traction and internal rotation. The leg was stable anteriorly in a position of 30 degrees of extension and 90 degrees of external rotation. Fluoroscopy was used to ensure there was no fracture and the stem was seated well. Leg lengths were checked with an AP pelvis and pelvic reference points. [employer]Sync navigation system was used to confirm appropriate positioning and leg length and offset. This over-corrected the leg length and under-corrected the offset, corrected by going to a 125 standard neck. Once content with the desired offset and leg lengths, the leg was brought back into extension, external rotation and adduction. The periosteum and surrounding tissue was injected with remaining portion of the ron-articular cocktail. The proximal femur was irrigated as well as the deep tissues. The Depuy Corail standard 125 degree collared stem, size 12, was then manually inserted into the proximal femur making sure to control rotation. It was then malleted into position with light blows, giving breaks to allow bone expansion and decrease risk of fracture. The selected Depuy Altrx Ceramic Head, size 36+1.5mm, was then placed onto the clean and dry trunnion and secured with impaction onto the tapered fit. The leg was brought back out of extension and adduction and reduced with traction and internal rotation. Stability was confirmed with no shuck at 90 degrees of external rotation and 30 degrees of extension. No impingement through range of motion arc. Final x-ray images were obtained with fluoroscopy to confirm adequate positioning and no intraoperative fracture. The deep tissues were thoroughly irrigated with Surgiphor, betadine solution. This was allowed to sit in the wound for 3 minutes before being thoroughly irrigated out with normal saline. The capsule was then reapproximated with the previously placed Ethibond sutures. The TFL fascia was finally closed with a No. 2 Stratafix, barbed suture. Deep tissues were then reapproximated with 0 Vicryl and a running 2-0 Vicryl. The skin was closed with a running 4-0 Monocryl in a subcuticular fashion. This was reinforced with skin glue. A Mepilex silver dressing was applied. At the end of the case, all counts were correct. Leti was transferred to the hospital bed without difficulty and suffering no apparent complication. She has a good prognosis. Physical therapy will start today and without restrictions, weight-bearing as tolerated. Aspirin 325mg daily will be used for DVT prophylaxis.
--- NOTE | 2023-07-25 14:11 | IN_ITS ---
PT Notes Visit Reasons: OA L Hip Physical Therapy Day Surgery Initial Evaluation Date: 07/25/2023 Referring Doctor: ANITA Guzman PT Orders: PT CONSULT: S/P Ortho Surgery Precautions: WBAT on the L LE with AD. Patient Profile/Admitting Diagnosis: Leti is an 82-year-old female with degenerative joint disease of the left hip and is status post left total hip arthroplasty on postoperative day 0. PMHX: All Active Problems 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 Followed by [facility] Unintentional weight loss (Chronic) Essential hypertension (Chronic) Hyperlipidemia (Chronic) Osteoporosis (Chronic) 2020-positive DEXA scan, patient managing nonpharmacologically Lumbar spinal stenosis (Chronic) Osteoarthritis of left hip (Chronic) Lumbar back pain with radiculopathy affecting right lower extremity (Chronic) Trochanteric bursitis, left hip (Chronic) Steroid injection: 08/07/2022 Memory loss (Chronic) Bilateral hearing loss (Chronic) Chronic rhinitis (Chronic) Chronic cough (Chronic) Diverticulosis of colon (Chronic) Antithrombin III deficiency (Chronic) Medical History Paroxysmal atrial fibrillation (~2013) One episode in 2013 Herpes zoster Major depressive disorder Paroxysmal SVT (supraventricular tachycardia) GERD (gastroesophageal reflux disease) Pulmonary embolism (2013) Surgical History S/P lumbar laminectomy (03/26/23) L4-L5, L5-S1 History of bunionectomy of right great toe Status post left breast lumpectomy (02/23/21) S/P colonoscopy History of total right hip replacement (06/28/22) S/P bunionectomy Right S/P tonsillectomy S/P appendectomy Social History/Home Situation: Patient lives alone in a private home with three steps to enter with a rail on one side and a wall on the other side onto which she can push onto for support on the other side. Uses no device for all. Equipment Owned/DME: [facility] Subjective: Patient reports 1/10 pain in the L hip at rest and with weight bearing.. denies headache, chest pain, and lightheadedness throughout session. Objective: General Observation: Resting in bed. Mepilex Ag over surgical incision. TEDS to be legs. SCDs to be legs. Mental Status: A and O x 4 Pain: As above ROM: Right Lower Extremity: Hip flexion WFL. Hip abduction WFL. Knee flexion WFL. Ankle dorsiflexion WFL. Ankle plantarflexion WFL. Left Lower Extremity: Hip flexion WFL. Hip abduction WFL. Knee flexion WFL. Ankle dorsiflexion WFL. Ankle plantarflexion WFL. Strength: Right Lower Extremity: Hip flexors 5/5. Hip abductors 5/5. Knee flexors 5/5. Knee extensors 5/5. Ankle dorsiflexors 5/5. Ankle plantarflexors 5/5. Left Lower Extremity:Hip flexors 4-/5. Hip abductors 4-/5. Knee flexors 4-/5. Knee extensors 4-/5. Ankle dorsiflexors 5/5. Ankle plantarflexors 5/5. Sensation: Intact as to pain and light pressure in BLE Bed Mobility/Transfers: Minimal verbal cueing provided for AD management, posture, and limb advancement Supine to sit standby assist Sit to stand standby assist with FWW Stand to sit standby assist with FWW Bed to chair standby assist with FWW Gait: Facilitated safe and correct performance of level surface ambulation covering a distance of 200 feet using front wheeled walker with reciprocal step through heel-toe gait pattern requiring only standby assist and minimal verbal cueing for walker management, posture, and limb advancement. Balance: Static Sitting: Normal Dynamic Sitting: Normal Static Standing: Fair Dynamic Standing: Fair Special Tests: Mobility Limitations Standardized Measure [facility] AM-PAC 6 clicks Basic Mobility Inpatient Short Form: Raw Score: 24 CMS Score: 0% deficit Informed Consent/Education: Patient instructed in purpose of PT consult. Education and training on initial set of exercises that can be done at home will be completed with patient. Packet containing FIDELINA exercise protocol will be provided for patient before tomorrow's discharge. Assessment: Patient requires the use of a front-wheeled walker for mobility ADL performance to maximize independence and reduce fall risk. Patient presents with clinical signs and symptoms consistent with current/admitting diagnoses that have resulted to mobility limitations, gait instability, generalized weakness, and impairment of motor control as demonstrated by the following impairment level findings: 1. Decreased strength to left hip major muscle groups 2. Impaired standing balance Impairments are contributing to the following functional limitations: 1. Inability to safely ambulate without assistive device 2. Increase completion time for mobility ADL performance 3. Increased fall risk Patient is assessed as a 44081 moderate complexity based on the following: History: 82-year-old female with impairment level findings, functional limitations, and past medical history as indicated above Examination: Demonstrable impairment in strength, balance, and mobility level with underlying impairments and functional limitations as documented above Presentation: Evolving Decision Makin moderate Goals: PT evaluation and 1-2 treatment sessions only for continued functional mobility training using recommended AD and for HEP instruction. Plan of Care/Treatment Plan: PT evaluation and 1-2 treatment session only for continued functional mobility training using recommended AD and for HEP instruction. DISCHARGE RECOMMENDATIONS: Home when medically cleared by orthopedic surgeon. Recommend outpatient PT services in order to optimize functional mobility outcomes and facilitate return to independent community ambulation without an assistive device. TREATMENT CODE/TIME: 55240 x 26 minutes for 1 unit beginning at 14:11 PM. Thank you for the opportunity to participate in the care of this patient. Safia Jose PT, DPT, CLT [facility] [place], [place]
[2023-07-25] MEDS: Celecoxib 200 MG CAP PO (20:14)
[2023-07-25] MEDS: Normal Saline Flush 10 ML SYR IV (20:15)
[2023-07-25] MEDS: Ondansetron 4 MG/2 ML VIAL IVP (22:21)
[2023-07-26] MEDS: diphenhydrAMINE 50 MG/ML VIAL 12.5 MG IVP (02:39)
[2023-07-26] MEDS: Normal Saline 250 ML 500 ML IV (02:40)
[2023-07-26] MEDS: Promethazine 25 MG TAB PO (02:56)
[2023-07-26 03:33] VITALS: BP 166/74; PULSE 60; RESP 18; TEMP 37.3; O2SAT 98
[2023-07-26] MEDS: ceFAZolin 1 GM/50 ML BAG IVPB (04:14)
[2023-07-26] MEDS: oxyCODONE 5 MG TAB PO ×2 (04:41→09:12)
[2023-07-26 07:18] VITALS: BP 170/74; PULSE 57; RESP 18; TEMP 37.1; O2SAT 99
[2023-07-26] MEDS: Celecoxib 200 MG CAP PO (07:39)
[2023-07-26] MEDS: Dexamethasone 4 MG TAB PO (07:39)
[2023-07-26] MEDS: Pantoprazole 40 MG TABCR PO (07:39)
[2023-07-26] MEDS: Acetaminophen 500 MG TAB 1000 MG PO ×2 (07:40→13:50)
[2023-07-26] MEDS: Aspirin E.C. 325 MG TABEC PO (07:40)
[2023-07-26] MEDS: Normal Saline Flush 10 ML SYR IV (07:40)
--- NOTE | 2023-07-26 09:14 | DSE_ITS ---
Date of service: 07/26/23 Time of Service: 07:30 DS: Diagnosis Discharge Diagnosis (1) Osteoarthritis of left hip: Status: Chronic (2) Nausea: Status: Acute (3) Hypertension: Status: Chronic Discharge Plan Disposition Patient Disposition: Home Condition: Improving Discharge Details Reason For Visit: OA L Hip Admit Date/Time: 07/25/23 07:23 Admit Provider: Chris Oviedo Attending Provider: Chris Oviedo [facility] Hospital Course: Patient was admitted to the medical/surgical floor following the procedure. The surgery was tolerated well without any notable medical, surgical, or anesthetic complications. Mobilization began postoperatively. She was voiding spontaneously. Vitals were stable. She did have some nausea. However, no emesis. Her blood pressure also ran high which has been unfortunate her baseline since discontinuing hypertension medications due to side effects. Nevertheless, the symptoms are stable. Physical therapy worked with the patient and was cleared for discharge home. No acute medical issues. Pain was controlled on oral regimen. Home Meds and New Rx's Prescriptions: New celecoxib 200 mg capsule 200 mg PO BID PRN (Reason: pain) Qty: 60 1RF acetaminophen 500 mg tablet 1,000 mg PO Q8H PRN (Reason: pain) Qty: 90 3RF pantoprazole 40 mg tablet,delayed release (DR/EC) 40 mg PO DAILY Qty: 14 0RF dexamethasone 4 mg tablet 4 mg PO DAILY Qty: 2 0RF Rx Instructions: Starting Post-Operative Day #1 (Day after surgery) oxycodone 5 mg tablet 5 mg PO Q6H PRN (Reason: pain) Qty: 12 0RF ondansetron 8 mg tablet,disintegrating 8 mg PO Q8H PRNQty: 20 0RF Continued calcium-magnesium 750-465 mg tablet 1 tab PO DAILY tramadol 50 mg tablet 50 mg PO Q8H Qty: 30 0RF aspirin 325 mg tablet,delayed release (DR/EC) 325 mg PO DAILY multivitamin with iron 1 EACH tablet 1 ea PO DAILY potassium chloride 20 mEq tablet extended release 20 meq PO DAILY Qty: 90 3RF valerian root 500 mg capsule 500 mg PO QHS Hold Instructions: Resume on 07/13/22. Do not take valerian root for 2 weeks after surgery Discharge Instructions Additional Instructions: Total Hip Discharge Instructions Activity: The most important activity is to walk. You should try to take short walks a few times a day. You have no restrictions on movement or positioning, but do not try to force what you do. You will find some stiffness and weakness with hip flexion (lifting your knee). Do not try to strengthen this too early, continue to practice walking and stairs and this will come. - Outpatient physical therapy can be helpful to help return you to a normal gait and improve your flexibility and strength. This can start around 2 weeks. For some patients, it?s not necessary. Usually this is determined at the time of discharge or at the first post-operative visit. - You should wear the SHELLY hose on both legs for 2 weeks. Dressing: Keep the surgical dressing in place for at least one week. After the first week it may be removed and replace with light gauze and tape or nothing. It may get wet after 3 days but avoid soaking the dressing. If it gets wet, just lightly pat dry. It is important to always keep some gauze between skin folds, especially when you are sitting. Spend some time with the wound exposed when you are lying flat as the incision does wrinkle onto itself. Medications: - You should take Tylenol and an anti-inflammatory Celebrex as your primary pain control medications. If the Celebrex is too expensive or not covered, please call the office for another alternative (Advil/Ibuprofen or Naproxen/Aleve). - You have been prescribed a stronger pain medication Oxycodone for breakthrough pain, take as needed as prescribed. - You have also been prescribed a stomach acid reduction agent Pantoprozole to help reduce stomach acid and reflux. - You have also been prescribed Decadron to help with post-operative nausea and pain. You will take this for two days starting tomorrow. - You will be taking Aspirin 325mg daily for DVT prevention unless instructed otherwise. - You also have an anti-nausea medications, Ondansetron (Zofran), for any nausea. - If you have constipation you should take Colace or Miralax (both [id number]). It takes most people 3-4 days to have a bowel movement. Follow-up: 2 weeks If you have any acute concerns or questions, please do not hesitate to contact the office at [phone]. You may contact Dr. Oviedo with any questions after hours through the hospital at [phone] or on his cell phone at [phone]. Stand Alone Forms: Nursing Discharge Form Referrals: Chris Oviedo MD [ [facility] ST[facility]FF PHYSICIAN] - 08/06/23 9:30 am Activity:: Activity as Tolerated Equipment/Supplies:: No Equipment Needed Diet:: As Tolerated Discharge Orders Discharge Orders: Discharge Order (Routine); Ordered 07/26/23 Ordered By: Chris Oviedo DS: Summary Time Spent with Patient providing and/or coordinating discharge services: Less than 30 minutes Status at Discharge Functional status at discharge: uses cane/walker Overall status at discharge: patient is progressing back to baseline Mental Status: mental status grossly normal Speech and Movement: speech and movement normal Mood: congruent mood Affect: normal affect Exam Narrative Exam Narrative: AAOx3. NAD. LLE dressing c/d/i with some bruising. No pain with ER/IR/Flexion of the hip. SILT Fem/Sciatic nerve distribution. Psych Mental Status: mental status grossly normal Speech and Movement: speech and movement normal Mood: congruent mood Affect: normal affect DS: Data Vitals/I&O Vitals and I&O: Vital Signs Temperature 37.1 C 07/26/23 07:18 Temperature Source Tympanic 07/26/23 07:18 Pulse 57 L 07/26/23 07:18 Pulse Rhythm Regular 07/26/23 07:50 Respiratory Rate 18 07/26/23 07:18 Respiratory Effort Normal, Non-Labored 07/26/23 07:50 Respiratory Depth Normal 07/26/23 07:50 Respiratory Pattern Normal 07/26/23 07:50 Blood Pressure 170/74 H 07/26/23 07:18 Pulse Oximetry 99 07/26/23 07:18 Respiratory End-tidal CO2 25 07/25/23 09:22 Oxygen Delivery Method Room Air 07/26/23 07:18 Oxygen Flow Rate 0 07/26/23 07:18 Pain Level 4 07/26/23 09:12 Comment BP called over radio; pT recently returned from walking to bathroom 07/26/23 07:18 Intake & Output 07/25/23 07/25/23 07/26/23 11:59 23:59 11:59 Intake Total 510 / 794 284 / 794 560 / 560 Output Total 100 / 100 Balance 410 / 694 284 / 694 560 / 560 Weight 47.6 kg Intake: IV 510 / 794 284 / 794 310 / 310 Oral 250 / 250 Output: Estimated Blood Loss 100 / 100 Other: Urine Color Yellow Yellow Urine Appearance Clear Clear Clear Urine Odor Normal None Comment voided in toilet Emesis Description None Voiding Methods Toilet Bedside Commode Toilet PFSH All Active Problems Hypertension (Chronic) Nausea (Acute) Unintentional weight loss (Chronic) Lumbar spinal stenosis (Chronic) Trochanteric bursitis, left hip (Chronic) Steroid injection: 08/07/2022 Antithrombin III deficiency (Chronic) Lumbar back pain with radiculopathy affecting right lower extremity (Chronic) Bilateral hearing loss (Chronic) Memory loss (Chronic) Osteoarthritis of left hip (Chronic) s/p L FIDELINA (07/25/23) Essential hypertension (Chronic) Osteoporosis (Chronic) 2020-positive DEXA scan, patient managing nonpharmacologically Chronic rhinitis (Chronic) Diverticulosis of colon (Chronic) 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 Followed by [facility] Chronic cough (Chronic) Hyperlipidemia (Chronic) Medical History Paroxysmal atrial fibrillation (~2013) One episode in 2013 Herpes zoster Major depressive disorder Paroxysmal SVT (supraventricular tachycardia) GERD (gastroesophageal reflux disease) Pulmonary embolism (2013) 2018 Surgical History S/P lumbar laminectomy (03/26/23) L4-L5, L5-S1 History of bunionectomy of right great toe Status post left breast lumpectomy (02/23/21) S/P colonoscopy History of total right hip replacement (06/28/22) S/P bunionectomy Right S/P tonsillectomy S/P appendectomy Family History Mother , age 78 Cancer Unknown type Hypertension Father Heart disease Hypertension Sister , age 76 Asthma Breast cancer Hypertension Lung cancer Sister , age 70 Colon cancer Heart disease Lung disease Brother , age 76 Lung cancer Hypertension Heart disease Son Prostate cancer Son No problems noted. Daughter No problems noted. Daughter No problems noted. Maternal Grandfather No problems noted. Maternal Grandmother TB (pulmonary tuberculosis) Paternal Grandfather No problems noted. Paternal Grandmother No problems noted. Social History Smoking/Tobacco Use Status: Never Second Hand Exposure: Yes Smoking risk assessment performed?: Yes Alcohol Intake: current Alcohol Intake frequency: holidays/special occasions only Alcohol type: beer, wine and hard liquor Drug use: Daily Substance use type: marijuana Details: marijuana: couple days ago, uses a pipe. alcohol: t-1, sip of beer Caregiver/Support person: No Household members: none Housing: house Do you need help understanding health information?: Rarely Pets and animals: No Sexually active: No Do you think of yourself as: straight/heterosexual Current gender identity: female What is your relationship status?: How often do you talk on the phone with friends or family?: three or more times per week How often do you get together with friends or relatives?: decline to answer How often do you attend roman catholic or hindu services?: decline to answer Do you belong to any clubs or organized social groups?: yes Panel score (0-1 are the most socially isolated patients): 2 What type of physical activity do you participate in: walking and other Details: stretching Duration: < 15 minutes/day Frequency: daily Loni/Christian: Latter Day Special loni needs: No Seatbelt use: always Helmet use: No Drive intox or ride w/intox non emergency services ambulance driver: No Do you feel safe at home: Yes Do you feel safe in your relationship?: Yes Additional Social history: unable to assess privately Time Spent with Patient Time Spent with Patient: <45 minutes Time was spent: preparing to see the patient(eg.review tests), obtaining and/or reviewing separately otained hiistory, ordering medications,tests, procedures, indepentently interpreting results and counseling the patient
--- NOTE | 2023-07-26 10:02 | PTTR_ITS ---
Date of service: 07/26/23 Time of Service: 09:44 PT Notes Visit Reasons: OA L Hip Inpatient Physical Therapy Treatment Note [facility] Date: 07/26/23 PRECAUTIONS: Fall, standard, activity as tolerated. WBAT LLE with AD SUBJECTIVE: Patient reports being excited to get home, hopefully today. AFTERNOOON: Patient reports that she does not need her walker, is comfortable with hand hold assist. This clinician strongly encouraged patient to continue to use her walker until her follow up with orthopedic surgeon. OBJECTIVE: Patient is just exiting bathroom when this clinician enters, is agreeable to therapy. AFTERNOON: Patient sitting EOB, agreeable to therapy. ? PAIN: Reports discomfort but denies pain. VITALS: monitored by nursing staff. ? ? BED MOBILITY/TRANSFERS? Rolling L/R: independent Supine-sit: independent ? Sit-supine: independent ? Sit-stand: independent ? Stand-sit: independent ? Bed-Chair: independent ? Chair-bed: independent ? Therapeutic Exercises ([id number]): Direct one-on-one instruction in therapeutic exercises to develop strength, endurance, range of motion and flexibility. ? Exercises: HEP issued as established by DPT Safia Jose. Exercises reviewed with patient as follows: * Glute sets, 5 second hold, x10 * ankle pumps x10 * heel slides x10 * seated marching x10 * seated LAQ x10 Ambulation ? Assistive Device: FWW? Weight bearing: WBAT LLE with AD Assist: SBA ? Distance:? 55 feet AFTERNOON: 200 feet ? Deviation: kyphotic posture hinged forward at the hip. adequate step length, height. Symmetric step pattern. STAIRS: Patient ascends and descends 4 six inch stairs and 6 four inch stairs with SBA, bilateral railings. ? Provided skilled instruction in proper exercise performance Provided skilled manual cues to facilitate proper muscle recruitment and/or form. ASSESSMENT:? Patient tolerates therapy well, no LOB, no SOB, no report of increased pain after treatment session. PLAN: Continue global strengthening per plan of care until patient is medically cleared for discharge. TREATMENT CODE/TIME: 17 minutes beginning at 9:44 and 8 minutes beginning at 13:57 for a total of 25 minutes today.
[2023-07-26 10:55] VITALS: BP 125/65; PULSE 64; RESP 16; TEMP 37.3; O2SAT 98
[2023-07-26 11:20] VITALS: BP 144/79; PULSE 62; RESP 17; TEMP 37.2; O2SAT 96
--- NOTE | 2023-07-26 13:50 | CHAPLAIN ---
Leti was visiting with he son, Ronnell, when I stopped in. Leti thought she remembered me from previous admissions. Leti said she is feeling better today but is looking forward getting home and resting in her own bed where she said she'll sleep better. She lives just [place] couple of miles from [facility].
== END 2023-07-26 14:45 | disposition home or self-care (01) ==
LOC: MS 13:05
PROVIDERS: Admitting Provider Student in an Organized Health Care Education/Training Program; PCP Nurse Practitioner Family; Visit Provider Student in an Organized Health Care Education/Training Program
PROC: (CPT 27130; principal; 2023-07-25 07:30)
DX: M16.12 Unilateral primary osteoarthritis, left hip (principal); M48.061 Spinal stenosis, lumbar region without neurogenic claudication; M54.16 Radiculopathy, lumbar region; D68.59 Other primary thrombophilia; I10 Essential (primary) hypertension; M81.0 Age-related osteoporosis without current pathological fracture; K57.30 Diverticulosis of large intestine without perforation or abscess without bleeding; Z86.711 Personal history of pulmonary embolism; F32.9 Major depressive disorder, single episode, unspecified; K21.9 Gastro-esophageal reflux disease without esophagitis; I47.10 Supraventricular tachycardia, unspecified; E78.5 Hyperlipidemia, unspecified; F12.90 Cannabis use, unspecified, uncomplicated; Z96.641 Presence of right artificial hip joint
CPT/HCPCS: 27130; 20985; C1776; 96361; 96365; 96366; 96375; 97110; 97162; 73501; G0378; J0360; J0690; J1100; J1200; J2001; J2405; J2704; J8540

== ENCOUNTER 2023-08-06 12:05 | Outpatient (CLI) | payer MEDICARE, SELFPAY ==
--- NOTE | 2023-08-06 10:55 | DI.RAD_ITS ---
Exam(s) XR HIP LT COMPLETE AP PELVIS EXAM: XR HIP LT COMPLETE AP PELVIS CLINICAL HISTORY: 1ST POST OP S/P L FIDELINA. TECHNIQUE: 2D digital imaging was performed. Two images were obtained. AP pelvis and lateral views were obtained. COMPARISON: CR XR HIP LT COMPLETE AP PELVIS from 11/08/2020 XA XR HIP LT IN OR from 07/25/2023 FINDINGS: BONES: There are stable post operative changes of a left total hip replacement present. No fracture or dislocation. JOINTS: The orthopedic hardware is in good position. No evidence of hardware loosening. SOFT TISSUE: Normal. IMPRESSION: Stable postoperative changes. DATA REPOSITORY: RADIATION DOSE DELIVERED:
== END 2023-08-06 12:06 | disposition home or self-care (01) ==
LOC: DIORS 12:05
PROVIDERS: PCP Nurse Practitioner Family; Referring Provider Nurse Practitioner Family; Visit Provider Student in an Organized Health Care Education/Training Program
DX: Z96.642 Presence of left artificial hip joint (principal); Z47.1 Aftercare following joint replacement surgery
CPT/HCPCS: 73502

== ENCOUNTER → 2023-09-03 11:05 | Outpatient (BNVA) | payer MEDICARE, SELFPAY | PROVIDERS: PCP Nurse Practitioner Family; Referring Provider Nurse Practitioner Family; Visit Provider Student in an Organized Health Care Education/Training Program | DX: Z47.1 Aftercare following joint replacement surgery (principal); M70.62 Trochanteric bursitis, left hip; Z96.642 Presence of left artificial hip joint ==

== ENCOUNTER → 2023-10-22 10:14 | Outpatient (BNVA) | payer MEDICARE, SELFPAY | PROVIDERS: PCP Nurse Practitioner Family; Referring Provider Nurse Practitioner Family; Visit Provider Student in an Organized Health Care Education/Training Program | DX: Z47.1 Aftercare following joint replacement surgery (principal); M70.62 Trochanteric bursitis, left hip; Z96.642 Presence of left artificial hip joint | CPT/HCPCS: 20610; J1040 ==

== ENCOUNTER 2024-01-22 05:04 | Outpatient (CLI) | payer MEDICARE, SELFPAY ==
[2024-01-22 12:33] LABS: Abs Immature Grans 0.04 10^3/uL (0.0-0.06); Absolute Basophil Count 0.05 10^3/uL (0.0-0.2); Absolute Eosinophil Count 0.28 10^3/uL (0.0-0.7); Absolute Lymphocyte Count 1.82 10^3/uL (1.2-3.4); Absolute Monocyte Count 0.58 10^3/uL (0.1-0.8); Absolute Neutrophil Count 4.11 10^3/uL (1.2-6.7); Basophils % 0.7 %; Eosinophils % 4.1 %; HCT 41.2 % (36.0-46.0); Immature Grans % 0.6 %; Lymphocytes % 26.5 %; MCH 33.9 pg (27.0-33.0); MCV 100 fL (80-95); MPV 8.2 fL (8.0-11.0); Monocytes % 8.4 %; Neutrophils % 59.7 %; Platelet Count 204 10^3/uL (130-400); RBC 4.13 10^6/uL (3.93-5.22); RDW 12.1 % (11.7-14.6); RDW-SD 44.7 fL; WBC 6.88 10^3/uL (4.4-10.8)
[2024-01-22 12:52] LABS: ALT 29 U/L (14-59); AST 17 U/L (15-37); Albumin 4.2 g/dL (3.4-5.0); Alkaline Phosphatase 83 U/L (46-116); Anion Gap 8.1 mmol/L (3-11); BUN 14 mg/dL (7-18); Bilirubin, Total 0.8 mg/dL (0.2-1.0); CO2 26.9 mmol/L (21.0-32.0); CREATININE 0.6 mg/dL (0.55-1.02); Calcium 9.1 mg/dL (8.5-10.1); Chloride 102 mmol/L (98-107); Estimated GFR 87.91 (mL/min/1.73m2); Glucose 88 mg/dL (74-106); Potassium 4.5 mmol/L (3.5-5.1); Sodium 137 mmol/L (136-145); Total Protein 6.8 g/dL (6.4-8.2)
[2024-01-23 10:20] LABS: Vitamin B12 594 pg/mL (193-986); Vitamin D 25 Total 17.3 ng/mL (30-100)
== END 2024-01-22 05:05 | disposition home or self-care (01) ==
PROVIDERS: Internal Medicine; PCP Nurse Practitioner Family; Visit Provider Nurse Practitioner Family
DX: C50.912 Malignant neoplasm of unspecified site of left female breast (principal); Z00.00 Encounter for general adult medical examination without abnormal findings; M81.0 Age-related osteoporosis without current pathological fracture; Z85.3 Personal history of malignant neoplasm of breast; D68.59 Other primary thrombophilia; I10 Essential (primary) hypertension
CPT/HCPCS: 36415; 80053; 82306; 82607; 85025

== ENCOUNTER → 2024-02-18 09:53 | Outpatient (BNVA) | payer MEDICARE, SELFPAY | PROVIDERS: PCP Nurse Practitioner Family; Visit Provider Student in an Organized Health Care Education/Training Program | DX: Z47.1 Aftercare following joint replacement surgery (principal); M70.62 Trochanteric bursitis, left hip; Z96.642 Presence of left artificial hip joint | CPT/HCPCS: 99213 ==

== ENCOUNTER 2024-09-16 13:45 | Outpatient (CLI) | payer MEDICARE, SELFPAY ==
[2024-09-16 10:50] LABS: Abs Immature Grans 0.02 10^3/uL (0.0-0.06); Absolute Basophil Count 0.06 10^3/uL (0.0-0.2); Absolute Eosinophil Count 0.15 10^3/uL (0.0-0.7); Absolute Lymphocyte Count 1.44 10^3/uL (1.2-3.4); Absolute Neutrophil Count 2.71 10^3/uL (1.2-6.7); Basophils % 1.2 %; Eosinophils % 3.1 %; HCT 42.7 % (36.0-46.0); HGB 14.3 g/dL (11.2-15.7); Immature Grans % 0.4 %; Lymphocytes % 29.5 %; MCH 33.5 pg (27.0-33.0); MCHC 33.5 % (32.0-36.0); MCV 100 fL (80-95); MPV 8.5 fL (8.0-11.0); Monocytes % 10.2 %; Neutrophils % 55.6 %; Platelet Count 216 10^3/uL (130-400); RBC 4.27 10^6/uL (3.93-5.22); RDW 11.9 % (11.7-14.6); RDW-SD 43.9 fL; WBC 4.88 10^3/uL (4.4-10.8)
[2024-09-16 11:10] LABS: ALT 24 U/L (14-59); AST 21 U/L (15-37); Albumin 3.7 g/dL (3.4-5.0); Alkaline Phosphatase 67 U/L (46-116); BUN 19 mg/dL (7-18); Bilirubin, Total 0.59 mg/dL (0.2-1.0); CREATININE 0.8 mg/dL (0.55-1.02); Calcium 9.3 mg/dL (8.5-10.1); Chloride 106 mmol/L (98-107); Estimated GFR 72.16 (mL/min/1.73m2); Glucose 84 mg/dL (74-106); Potassium 4.4 mmol/L (3.5-5.1); Total Protein 6.6 g/dL (6.4-8.2)
[2024-09-16 11:13] LABS: Sodium 140 mmol/L (136-145)
[2024-09-16 12:08] LABS: Vitamin D 25 Total 53.5 ng/mL (30-100)
[2024-09-16 18:47] LABS: Hepatitis C Ab w Rflx HCV PCR Negative (Negative)
[2024-09-16 18:55] LABS: HIV-1/2 Ag & Ab Screen Negative (Negative)
[2024-09-16 19:22] LABS: Hep B Surface Ab Positive (See Note); Hepatitis B Core Antibody Negative (Negative); Hepatitis B Surface Antigen Negative (Negative)
== END 2024-09-16 13:46 | disposition home or self-care (01) ==
LOC: LBO 13:46
PROVIDERS: PCP Nurse Practitioner Family; Visit Provider Nurse Practitioner Family
DX: Z85.3 Personal history of malignant neoplasm of breast (principal); C50.912 Malignant neoplasm of unspecified site of left female breast; Z11.59 Encounter for screening for other viral diseases; Z11.4 Encounter for screening for human immunodeficiency virus [HIV]; M81.0 Age-related osteoporosis without current pathological fracture; E55.9 Vitamin D deficiency, unspecified
CPT/HCPCS: 36415; 80053; 82306; 86704; 86706; 86803; 87340; 87389; 85025

== ENCOUNTER 2024-10-24 00:09 | Outpatient (CLI) | payer MEDICARE, SELFPAY ==
--- NOTE | 2024-10-24 11:18 | DI.MAMMO_ITS ---
Exam(s) MG MAMMO SCREENING 60 MIN DUR EXAM: MG MAMMO SCREENING 60 MIN DUR CLINICAL HISTORY: HX BREAST CANCER, C50.912, Z17.0, SCREENING, Z12.31, STAGE 1, ESTROGEN REC. TECHNIQUE: Bilateral full field digital CC and MLO mammographic images were obtained with 3D tomosyn thesis and utilizing computer aided detection (CAD). COMPARISON: Prior mammograms were reviewed. Patient underwent left breast lumpectomy and radiation therapy in 2020. FINDINGS: There has been no significant change in the appearance and distribution of the fibroglandular tissue. Left breast is again noted be smaller than the right, this related to prior lumpectomy. There are no new spiculated masses nor malignant appearing microcalcification groups in either breast .. There is no new significant architectural distortion nor skin thickening-retraction. IMPRESSION: No radiographic evidence of malignancy. Stable postoperative appearance of the left breast. BI-RADS Category 2 - Benign Findings Breast Density - Category B - Scattered areas of fibroglandular density Breast density Category C or D implies that the patient has dense breast tissue. Dense breast tissue can make it harder to find cancer on a mammogram. Dense breast tissue is also associated with an incr eased risk of breast cancer. This information about the result of the mammogram report was provided to the patient to raise their awareness. Use this report when you speak with the patient about their risks for breast cancer, which includes their family history. At that time, you may recommend additional screening tests (Ultrasoun d or MRI) as these tests may add significant information. A negative radiographic report should not delay biopsy if a dominant or clinically suspicious mass is present. Up to ten percent of cancers are not identified on mammography. A negative report may reinforce clinical impression. Adenosis and dense breasts may obscure an underlying neoplasm. False positive reports average 6 to 10%. Patient will receive a letter notifying them of these results.
== END 2024-10-24 00:29 ==
LOC: DI 00:10
PROVIDERS: PCP Nurse Practitioner Family; Visit Provider Nurse Practitioner
DX: Z17.0 Estrogen receptor positive status [ER+] (principal); Z12.31 Encounter for screening mammogram for malignant neoplasm of breast; R92.323 Mammographic fibroglandular density, bilateral breasts; D24.1 Benign neoplasm of right breast; D24.2 Benign neoplasm of left breast
CPT/HCPCS: 77063; 77067

== ENCOUNTER 2025-03-17 10:36 | Outpatient (CLI) | payer MEDICARE, SELFPAY ==
[2025-03-17 13:42] LABS: Abs Immature Grans 0.03 10^3/uL (0.0-0.06); HCT 41.7 % (36.0-46.0); HGB 14.4 g/dL (11.2-15.7); Immature Grans % 0.4 %; MCH 33.4 pg (27.0-33.0); MCHC 34.5 % (32.0-36.0); MCV 97 fL (80-95); MPV 8.5 fL (8.0-11.0); Platelet Count 201 10^3/uL (130-400); RBC 4.31 10^6/uL (3.93-5.22); RDW 12.1 % (11.7-14.6); RDW-SD 43.1 fL; WBC 6.81 10^3/uL (4.4-10.8)
[2025-03-17 14:17] LABS: ALT 29 U/L (14-59); AST 21 U/L (15-37); Albumin 3.9 g/dL (3.4-5.0); Alkaline Phosphatase 74 U/L (46-116); Anion Gap 8.8 mmol/L (3-11); BUN 20 mg/dL (7-18); Bilirubin, Total 0.8 mg/dL (0.2-1.0); CO2 25.2 mmol/L (21.0-32.0); Calcium 9.6 mg/dL (8.5-10.1); Chloride 105 mmol/L (98-107); Estimated GFR 84.17 (mL/min/1.73m2); Glucose 121 mg/dL (74-106); Potassium 3.9 mmol/L (3.5-5.1); Sodium 139 mmol/L (136-145); Total Protein 6.7 g/dL (6.4-8.2)
== END 2025-03-17 10:37 | disposition home or self-care (01) ==
LOC: LBO 10:36
PROVIDERS: PCP Nurse Practitioner Family; Visit Provider Nurse Practitioner
DX: C50.912 Malignant neoplasm of unspecified site of left female breast (principal)
CPT/HCPCS: 36415; 80053; 85025